=== PATIENT | female | born 1960 | race Caucasian/White ===

== ENCOUNTER 2017-08-23 17:08 | Inpatient (IN) | payer MEDICARE, MEDICAID ==
[~2017-08-23] VITALS: Ht 152.4 cm; Wt 66.2 kg
[~2017-08-23 17:08] MED LIST: ACE325 PO; ACET-2043 PO; ADV100/50 INH; AMOX-559 PO; AMOX500T10 PO; ARTO15 OP; BACI1POW3 MC; CARB15DR76 OU; CEPH500T7 PO; CETY454C2 TP; CHLO1LIQ2 MC; CIP500 PO; COMPLETE SENIOR; DIA5 PO; DIAZ-308 PO; DOXY-252 PO; DUL100/5PT INH; ESOM40CA42 PO; FLUO-202 PO; FLUO40CA76 PO; FLUT1AER INH; GUAI-537 PO; HYDR28.415 TP; LAM100 PO; LEV75 PO; LEVO75TA68 PO; LOPE-147 PO; MENT118G TOP; PAN40 PO; PHEN200T32 PO; POLY15DR42; SODCLOD; SYSTANEPT OP; TALC71PO2 TP; VIT1CAPS39 PO; [UNRECOGNIZED DRUG - OTHER]; [UNRECOGNIZED DRUG - OTHER]; oxygen
--- NOTE | 2017-08-23 17:17 | ER Report ---
History and Physical Time Seen By MD: 17:16 HPI/ROS CHIEF COMPLAINT: Cough HISTORY OF PRESENT ILLNESS: This is a 57-year-old female who resides at the [facility] she has a history of Down's and has off. According to the caregiver she's had a productive cough for about 6-7 days they were concerned that she had influenza as her other clients in her facility that have influenza and therefore they took her to urgent care for evaluation she was negative for influenza. They did do a chest x-ray which showed a pneumonia. Patient has also been complaining of aches and chills. No diarrhea, no nausea, no vomiting or any other complaints at this time. SPO2 at urgent care was about 50%, they did place her on oxygen when they sent her to the emergency department however according to caregiver she did take the oxygen off en route, upon arrival she was in the 60s on room air. While I was in the room the patient was put on a simple mask and did take her about 7 minutes to get from 65% to 90%. At this time she tolerating the simple mask well. REVIEW OF SYSTEMS: Constitutional: No fever, no chills. Eyes: No discharge. ENT: No sore throat. Cardiovascular: No chest pain, no palpitations. Respiratory: As above. Gastrointestinal: No abdominal pain, no vomiting. Genitourinary: No hematuria. Musculoskeletal: No back pain. Skin: No rashes. Neurological: No headache. Allergies: Uncoded Allergies: perfume (Allergy, Unknown, 02/01/14) skin sensitive to perfumed soaps and deodorants SOAP (Adverse Reaction, Unknown, 02/01/14) Home Meds Reported Medications Melatonin (MELATONIN) 5 Mg Tab.rapdis, 5 MG PO QHS 08/23/17 Fluoxetine Hcl (FLUOXETINE HCL) 20 Mg Capsule, 30 MG PO QDAY, CAPSULE 08/23/17 Vit A/Vit C/Vit E/Zinc/Copper (PRESERVISION AREDS SOFTGEL) 1 Each Capsule, 1 EACH PO BID, CAPSULE 08/23/17 Multivitamin (MULTIVITAMINS) 1 Each Capsule, 1 EACH PO QDAY, CAPSULE 08/23/17 Levothyroxine Sodium (LEVOTHYROXINE SODIUM) 50 Mcg Tablet, 50 MCG PO QDAY, TAB 08/23/17 Acetaminophen (TYLENOL) 325 Mg Tablet, 650 MG PO BID, TAB 08/23/17 Eyelid Cleanser Combination #5 (OCUSOFT LID SCRUB) 1 Each Med..pad, 1 EACH TP QDAY 08/23/17 Fluticasone/Vilanterol 100/25 Mcg/Inh (BREO ELLIPTA 100/25 MCG) 1 Each Aer.pow.ba, 1 INH INH QDAY, INH 08/23/17 Polyvinyl Alcohol/Povidone/Pf (REFRESH CLASSIC EYE DROPS) 1 Each Droperette, 1 EACH OP Q4D 08/23/17 Parab/Cet Alc/Stryl Alc/Pg/Sls (CETAPHIL DAILY FACIAL CLEANSER) 473 Ml Cleanser , 473 ML TP QDAY 08/23/17 Petrolatum,White (AQUAPHOR) 99 Gm Oint...g., 99 GM TP QDAY 08/23/17 Chlorhexidine Gluconate (HIBICLENS) 118 Ml Liquid, 118 ML TP QDAY 08/23/17 Talc/Cellulos/Chloroxy/Aldioxa (ZEASORB POWDER) 71 Gm Powder, 71 GM TP BID 08/23/17 Lamotrigine (LAMOTRIGINE) 200 Mg Tab.er.24, 200 MG PO QDAY 08/23/17 Sodium Fluoride (PREVIDENT 5000) 100 Ml Gel..ml., 100 ML DT 08/23/17 Discontinued Reported Medications Talc/Cellulos/Chloroxy/Aldioxa (ZEASORB POWDER) 71 Gm Powder, 71 GM TP 05/28/17 Fluticasone/Vilanterol 100/25 Mcg/Inh (BREO ELLIPTA 100/25 MCG) 1 Each Aer.pow.ba, 1 INH INH QDAY, INH 05/28/17 Cetyl Alc/Stearyl Alc/Pg/Sls (CETAPHIL CREAM) 454 Gm Cream..g., 454 GM TP BID 02/01/14 [oxygen] No Conflict Check 11/02/13 Diazepam (DIAZEPAM) 5 Mg Tablet, 5 MG PO, #15 TAB take t mgg as needed q/2 hr prior to dental or gynecological appointments 10/27/13 Fluoxetine Hcl (PROZAC) 20 Mg Capsule, 20 MG PO QDAY, CAPSULE 10/27/13 [complete senior] No Conflict Check 11/09/11 Polysorbate 80/Glycerin (Refresh Dry Eye Therapy Drops) 15 Ml Drops EVERY 2 HOURS DURING THE DAY 4/9/12 Clindamycin Phos (CLINDAMYCIN 1% TOPICAL SOLN (PATIENT OWN)) 60 Ml Solution 11/09/11 [max vision] No Conflict Check 2 CAPS DAILY 11/09/11 Levothyroxine Sodium (Synthroid/Levothroid) 0.075 Mg Tab, 50 MCG PO QDAY, 0 Refills 08/01/10 Lamotrigine (Lamictal) 100 Mg Tab, 200 MG PO QDAY, 0 Refills take 200 mg daily at 0800 08/01/10 Discontinued Scripts Phenazopyridine Hcl (PHENAZOPYRIDINE HCL) 200 Mg Tablet, 200 MG PO TID Y for urinary burning, #9 TAB Prov:RADHA SNYDER DO 11/07/16 Cephalexin 500 Mg Tab (KEFLEX 500 MG TAB) 500 Mg Tablet, 500 MG PO TID for infection, #20 TAB Prov:RADHA SNYDER DO 11/07/16 Past Medical/Surgical History Patient has a past medical surgical history of hypothyroidism, murmur, convulsions, cataract in the right eye A, cataract surgery, Down syndrome, urinary tract infections. Reviewed Nurses Notes: Yes Hx Smoking: No Smoking Status: Never Smoker Exposure to Second Hand Smoke?: No Hx Substance Use Disorder: No Hx Alcohol Use: No Constitutional Vital Sign - Last 24 Hours 08/23/17 08/23/17 08/23/17 08/23/17 17:10 17:18 17:23 17:38 Pulse 78 70 76 Resp 24 B/P (MAP) 130/78 (95) Pulse Ox 94 82 08/23/17 08/23/17 08/23/17 08/23/17 17:53 18:06 18:08 18:15 Pulse 73 71 B/P (MAP) 112/34 (60) 90/64 (73) Pulse Ox 85 94 08/23/17 08/23/17 08/23/17 08/23/17 18:23 18:30 18:58 19:03 Pulse 72 66 66 Pulse Ox 94 95 95 O2 Flow Rate 15.0 08/23/17 08/23/17 08/23/17 08/23/17 19:33 20:03 20:08 20:38 Pulse 71 93 83 79 Pulse Ox 97 91 95 94 Physical Exam General Appearance: The patient is alert, has no immediate need for airway protection and no signs of toxicity, pale. Eyes: Pupils equal and round no pallor or injection. ENT, Mouth: Mucous membranes are moist. Respiratory: There are no retractions, lungs are dim sounding throughout. No rhonchi or wheezing. Cardiovascular: Regular rate and rhythm, systolic murmur, no clicks or rubs. Gastrointestinal: Abdomen is soft and non tender, no masses, bowel sounds normal. Neurological: Alert and at baseline per caregiver. Following commands. No focal neuro deficits. Skin: Warm and dry, no rashes. Musculoskeletal: Neck is supple non tender. Extremities are nontender, nonswollen and have full range of motion. DIFFERENTIAL DIAGNOSIS: After history and physical exam differential diagnosis was considered for pneumonia, PE, [place]. Medical Decision Making Data Points Result Diagram: 08/23/17180508/23/171805 Laboratory Hematology Test 08/23/17 00:00 08/23/17 18:06 Urine Color Yellow Urine Clarity Clear Urine pH 5.0 pH (4.8-9.5) Urine Specific [place] 1.028 Urine Protein 30 mg/dL (NEGATIVE) Urine Glucose (UA) Negative mg/dL (NEGATIVE) Urine Ketones Negative mg/dL (NEGATIVE) Urine Blood Negative (NEGATIVE) Urine Nitrite Negative (NEGATIVE) Urine Bilirubin Negative (NEGATIVE) Urine Urobilinogen Negative mg/dL (0.2-1.9) Urine Leukocyte Esterase Negative (NEGATIVE) Urine RBC <1 /HPF (0-2/HPF) Urine WBC 4 /HPF (0-5/HPF) Urine Squamous Epithelial Cells Few /LPF (</=FEW) Urine Bacteria Negative /HPF (NONE-FEW) Urine Mucus Few /HPF (NONE-FEW) Red Blood Count 3.94 M/uL (4.17-5.56) Mean Corpuscular Volume 104.9 fL (80.0-96.0) Mean Corpuscular Hemoglobin 35.6 pg (26.0-33.0) Mean Corpuscular Hemoglobin Concent 34.0 g/dL (32.0-36.0) Red Cell Distribution Width 14.1 % (11.5-14.5) Mean Platelet Volume 8.1 fL (7.2-11.1) Neutrophils (%) (Auto) 85.7 % (39.4-72.5) Lymphocytes (%) (Auto) 7.6 % (17.6-49.6) Monocytes (%) (Auto) 6.0 % (4.1-12.4) Eosinophils (%) (Auto) 0.5 % (0.4-6.7) Basophils (%) (Auto) 0.2 % (0.3-1.4) Nucleated RBC Relative Count (auto) 0.0 /100WBC Neutrophils # (Auto) 9.4 K/uL (2.0-7.4) Lymphocytes # (Auto) 0.8 K/uL (1.3-3.6) Monocytes # (Auto) 0.7 K/uL (0.3-1.0) Eosinophils # (Auto) 0.1 K/uL (0.0-0.5) Basophils # (Auto) 0.0 K/uL (0.0-0.1) Nucleated RBC Absolute Count (auto) 0.01 K/uL Peripheral Blood Smear No Y/N D-Dimer Quantitative (PE/DVT) 1.18 ug/ml (0-0.50) Sodium Level 139 mmol/L (137-145) Potassium Level 4.3 mmol/L (3.5-5.0) Chloride Level 97 mmol/L (98-107) Carbon Dioxide Level 30 mmol/L (22-31) Blood Urea Nitrogen 20 mg/dl (7-18) Creatinine 0.90 mg/dl (0.52-1.04) Glomerular Filtration Rate Calc > 60.0 Random Glucose 111 mg/dl (75-110) Lactate 1.3 mmol/L (0.7-2.1) Calcium Level 8.9 mg/dl (8.4-10.2) Total Bilirubin 0.7 mg/dl (0.2-1.3) Aspartate Amino Transf (AST/SGOT) 48 U/L (0-35) Alanine Aminotransferase (ALT/SGPT) 48 U/L (0-56) Alkaline Phosphatase 151 U/L (0-126) Troponin I 0.015 ng/ml Total Protein 8.2 gm/dl (6.3-8.2) Albumin 4.1 g/dl (3.5-5.0) Chemistry Test 08/23/17 00:00 08/23/17 18:06 Urine Color Yellow Urine Clarity Clear Urine pH 5.0 pH (4.8-9.5) Urine Specific [place] 1.028 Urine Protein 30 mg/dL (NEGATIVE) Urine Glucose (UA) Negative mg/dL (NEGATIVE) Urine Ketones Negative mg/dL (NEGATIVE) Urine Blood Negative (NEGATIVE) Urine Nitrite Negative (NEGATIVE) Urine Bilirubin Negative (NEGATIVE) Urine Urobilinogen Negative mg/dL (0.2-1.9) Urine Leukocyte Esterase Negative (NEGATIVE) Urine RBC <1 /HPF (0-2/HPF) Urine WBC 4 /HPF (0-5/HPF) Urine Squamous Epithelial Cells Few /LPF (</=FEW) Urine Bacteria Negative /HPF (NONE-FEW) Urine Mucus Few /HPF (NONE-FEW) White Blood Count 11.0 k/uL (4.5-11.0) Red Blood Count 3.94 M/uL (4.17-5.56) Hemoglobin 14.0 g/dL (12.0-16.0) Hematocrit 41.3 % (34.0-47.0) Mean Corpuscular Volume 104.9 fL (80.0-96.0) Mean Corpuscular Hemoglobin 35.6 pg (26.0-33.0) Mean Corpuscular Hemoglobin Concent 34.0 g/dL (32.0-36.0) Red Cell Distribution Width 14.1 % (11.5-14.5) Platelet Count 185 K/uL (150-450) Mean Platelet Volume 8.1 fL (7.2-11.1) Neutrophils (%) (Auto) 85.7 % (39.4-72.5) Lymphocytes (%) (Auto) 7.6 % (17.6-49.6) Monocytes (%) (Auto) 6.0 % (4.1-12.4) Eosinophils (%) (Auto) 0.5 % (0.4-6.7) Basophils (%) (Auto) 0.2 % (0.3-1.4) Nucleated RBC Relative Count (auto) 0.0 /100WBC Neutrophils # (Auto) 9.4 K/uL (2.0-7.4) Lymphocytes # (Auto) 0.8 K/uL (1.3-3.6) Monocytes # (Auto) 0.7 K/uL (0.3-1.0) Eosinophils # (Auto) 0.1 K/uL (0.0-0.5) Basophils # (Auto) 0.0 K/uL (0.0-0.1) Nucleated RBC Absolute Count (auto) 0.01 K/uL Peripheral Blood Smear No Y/N D-Dimer Quantitative (PE/DVT) 1.18 ug/ml (0-0.50) Glomerular Filtration Rate Calc > 60.0 Lactate 1.3 mmol/L (0.7-2.1) Calcium Level 8.9 mg/dl (8.4-10.2) Total Bilirubin 0.7 mg/dl (0.2-1.3) Aspartate Amino Transf (AST/SGOT) 48 U/L (0-35) Alanine Aminotransferase (ALT/SGPT) 48 U/L (0-56) Alkaline Phosphatase 151 U/L (0-126) Troponin I 0.015 ng/ml Total Protein 8.2 gm/dl (6.3-8.2) Albumin 4.1 g/dl (3.5-5.0) Coagulation Test 08/23/17 18:06 D-Dimer Quantitative (PE/DVT) 1.18 ug/ml Urinalysis Test 08/23/17 00:00 Urine Color Yellow Urine Clarity Clear Urine pH 5.0 pH (4.8-9.5) Urine Specific [place] 1.028 Urine Protein 30 mg/dL (NEGATIVE) Urine Glucose (UA) Negative mg/dL (NEGATIVE) Urine Ketones Negative mg/dL (NEGATIVE) Urine Blood Negative (NEGATIVE) Urine Nitrite Negative (NEGATIVE) Urine Bilirubin Negative (NEGATIVE) Urine Urobilinogen Negative mg/dL (0.2-1.9) Urine Leukocyte Esterase Negative (NEGATIVE) Urine RBC <1 /HPF (0-2/HPF) Urine WBC 4 /HPF (0-5/HPF) Urine Squamous Epithelial Cells Few /LPF (</=FEW) Urine Bacteria Negative /HPF (NONE-FEW) Urine Mucus Few /HPF (NONE-FEW) EKG/Imaging EKG Interpretation 12 lead EKst EKG, 1739. Rhythm: normal sinus rhythm, ventricular rate 76 bpm. [place]: normal QRS: normal ST segments: normal QTC 483 milliseconds. Imaging PATIENT NAME: Keerthi Melendez : 1960 MR: [id number] V: [id number] EXAM DATE: ORDERING PHYSICIAN: GERALD SRINIVASAN TECHNOLOGIST: Location: [facility] Patient: Keerthi Melendez : 1960 Visit/Account:[id number] Date of Sevice: 08/23/2017 CT PE DATE: 08/23/2017 8:18 PM INDICATION: Hypoxia, evaluate for pulmonary embolism. COMPARISON: Same-day radiograph. TECHNIQUE: Axial CT angiogram was obtained through the chest with intravenous contrast. Sagittal and coronal MPR and MIP coronal reformations were also generated. 75 mL isovue 370. One of the following dose optimization techniques was utilized in the performance of this exam: Automated exposure control; adjustment of the mA and/or kV according to the patient's size; or use of an iterative reconstruction technique. Specific details can be referenced in the facility's radiology CT exam operational policy. FINDINGS: Thyroid / Thoracic Inlet: Unremarkable. Pulmonary Arteries: Normal. Heart and Aorta: Heart size is likely normal. No pericardial effusion. Nonaneurysmal thoracic aorta. Ductus infundibulum noted. Mediastinum and Jessica: Enlarged mediastinal and right hilar lymph nodes are likely reactive. Lungs and Pleura: No pleural effusion or pneumothorax. There is patchy consolidation in the midportion of the right lower lobe suspicious for pneumonia. Consolidation at the bilateral lung bases with volume loss consistent with atelectasis, although underlying additional sites of infection are not excluded. Breast and Axilla: No axillary lymphadenopathy. Upper Abdomen: No visualized acute abnormality. Incompletely imaged right renal cyst. Bones and Soft Tissues: No suspicious osseous or soft tissue abnormality. Moderate to severe multilevel spondylosis. IMPRESSION: 1. No pulmonary embolism. 2. Suspected right lower lobe pneumonia with reactive mediastinal and right hilar adenopathy. 3. Bibasilar atelectasis. Dr. Betancourt discussed this case with GERALD SRINIVASAN on 08/23/2017 8:45 PM. Report Dictated By: Jean Betancourt MD at 08/23/2017 8:16 PM Report E-Signed By: Jean Betancourt MD at 08/23/2017 8:46 PM WSN:[id number] ED Course/Re-evaluation Clinical Indication for ER IV: Hydration, IV Access ED Course The patient was admitted to room. A history and physical were obtained. Differential diagnoses were considered. IV was started. A CBC, CMP, troponin and d-dimer were obtained. Blood cultures were obtained. Sputum culture was obtained. No white count at this time, percent neutrophils 85.7. Negative lactate, negative troponin. D-dimer was 1.18. Given the low oxygen saturation of 50s to 80% on room air and a positive d-dimer I did go ahead and CT the patient. CTA was negative for a PE it did confirm a right lower lobe pneumonia and bibasilar atelectasis. The patient has remained on an oxymask with the oxygen saturation at 90% or slightly above. If the oxy mask does come off the patient quickly decompensates down to about 80%. I did review the results with the patient and the caregiver they had no questions were concerns. I did tell them that Dr. Elizalde has accepted him in to the hospitalist services. Patient was admitted to medical surgical unit from the emergency department. 08/23/2017 9:02:09 pm I did speak with Dr. Rochelle Elizalde regarding the patient's case and he is accepted the patient into the hospitalist services. He will start antibiotics once the patient gets to the medical surgical floor. Decision to Disposition Date: Aug 23, 2017 Decision to Disposition Time: 20:58 Depart Departure Latest Vital Signs Vital Signs Date Time Temp Pulse Resp B/P (MAP) Pulse Ox O2 Delivery O2 Flow Rate FiO2 08/23/17 20:38 79 94 08/23/17 18:30 15.0 08/23/17 18:15 90/64 (73) 08/23/17 17:10 24 Impression: Primary Impression: Right lower lobe pneumonia Condition: Improved Disposition: Admitted from ER Referrals: JUDY LOPEZ MD (PCP) Problem Qualifiers Primary Impression: Right lower lobe pneumonia Pneumonia type: due to unspecified organism Qualified Codes: J18.1 - Lobar pneumonia, unspecified organism GERALD SRINIVASAN MED[employer] INSURANCE CLAIMS SPECIALIST-BC Aug 23, 2017 17:17
--- NOTE | 2017-08-23 17:48 | EKG ---
FACILITY: [facility] PATIENT NAME: WALTER CADENA : [id number] MR: [id number] V: [id number] EXAM DATE: ORDERING PHYSICIAN: GERALD SRINIVASAN TECHNOLOGIST: KARON Daniels Reason : RESPIRATORY Blood Pressure : / mmHG Vent. Rate : 076 BPM Atrial Rate : 076 BPM P-R Int : 144 ms QRS Dur : 078 ms QT Int : 430 ms P-R-T Axes : 053 060 051 degrees QTc Int : 483 ms Sinus rhythm Prolonged QT Abnormal ECG No previous ECGs available Confirmed by GLADYS WEBB ([id number]) on 08/23/2017 7:55:22 PM Referred By: Confirmed By:GLADYS WEBB
[2017-08-23] MEDS ORDERED: FLUO-177 PO (18:17)
[2017-08-23] MEDS ORDERED: LEVO50TA86 PO (18:17)
[2017-08-23] MEDS ORDERED: SODI100G4 DT (18:17)
[2017-08-23] MEDS ORDERED: EYEL1MED TP (18:17)
[2017-08-23] MEDS ORDERED: FLUT1AER INH (18:17)
[2017-08-23] MEDS ORDERED: LAMO200T3 PO (18:17)
[2017-08-23] MEDS ORDERED: CHLO118L6 TP (18:17)
[2017-08-23] MEDS ORDERED: MULT1CAP59 PO (18:17)
[2017-08-23] MEDS ORDERED: ACET-1966 PO (18:17)
[2017-08-23] MEDS ORDERED: [UNRECOGNIZED DRUG - CODE] TP (18:17)
[2017-08-23] MEDS ORDERED: MELA5TAB20 PO (18:17)
[2017-08-23] MEDS ORDERED: VIT1CAPS34 PO (18:17)
[2017-08-23] MEDS ORDERED: POLY1DRO10 OP (18:17)
[2017-08-23] MEDS ORDERED: PETR99OI2 TP (18:17)
[2017-08-23] MEDS ORDERED: TALC71PO2 TP (18:17)
[2017-08-23 18:23] LABS: PLATELET COUNT, AUTOMATED 185 K/uL (150-450)
[2017-08-23] MEDS ORDERED: IOPAMIDOL 76% 75 ML INFUS BTL 75 ML ONE (19:04)
[2017-08-23] MEDS ORDERED: NS 0.9% 20 ML SDV 100 ML ONE (19:04)
[2017-08-23] MEDS ORDERED: KETAMINE HCL 200 MG/20 ML MDV IVP ONE (19:20)
[2017-08-23] MEDS ORDERED: KETAMINE HCL 500 MG/5 ML VIAL IVP ONE (19:25)
--- NOTE | 2017-08-23 20:51 | RADIOLOGY IMAGING REPORT ---
FACILITY: PATIENT NAME: Keerthi Melendez : 1960 MR: [id number] V: [id number] EXAM DATE: ORDERING PHYSICIAN: GERALD SRINIVASAN TECHNOLOGIST: Location: [facility] [place] Patient: Keerthi Melendez : 1960 Visit/Account:[id number] Date of Sevice: 08/23/2017 CT PE DATE: 08/23/2017 8:18 PM INDICATION: Hypoxia, evaluate for pulmonary embolism. COMPARISON: Same-day radiograph. TECHNIQUE: Axial CT angiogram was obtained through the chest with intravenous contrast. Sagittal an d coronal MPR and MIP coronal reformations were also generated. 75 mL isovue 370. One of the follow ing dose optimization techniques was utilized in the performance of this exam: Automated exposure con trol; adjustment of the mA and/or kV according to the patient's size; or use of an iterative reconst ruction technique. Specific details can be referenced in the facility's radiology CT exam operationa l policy. FINDINGS: Thyroid / Thoracic Inlet: Unremarkable. Pulmonary Arteries: Normal. Heart and Aorta: Heart size is likely normal. No pericardial effusion. Nonaneurysmal thoracic aorta . Ductus infundibulum noted. Mediastinum and Jessica: Enlarged mediastinal and right hilar lymph nodes are likely reactive. Lungs and Pleura: No pleural effusion or pneumothorax. There is patchy consolidation in the midport ion of the right lower lobe suspicious for pneumonia. Consolidation at the bilateral lung bases with volume loss consistent with atelectasis, although underlying additional sites of infection are not e xcluded. Breast and Axilla: No axillary lymphadenopathy. Upper Abdomen: No visualized acute abnormality. Incompletely imaged right renal cyst. Bones and Soft Tissues: No suspicious osseous or soft tissue abnormality. Moderate to severe multil evel spondylosis. IMPRESSION: 1. No pulmonary embolism. 2. Suspected right lower lobe pneumonia with reactive mediastinal and right hilar adenopathy. 3. Bibasilar atelectasis. Dr. Betancourt discussed this case with GERALD SRINIVASAN on 08/23/2017 8:45 PM. Report Dictated By: Jean Betancourt MD at 08/23/2017 8:16 PM Report E-Signed By: Jean Betancourt MD at 08/23/2017 8:46 PM WSN:[id number]
[2017-08-23 21:31] VITALS: BP 113/76
--- NOTE | 2017-08-23 22:04 | History & Physical ---
History of Present Illness Chief Complaint Cough History of Present Illness 57yo female with PMHx significant for Down's Syndrome, seizures, DVT, hypothyroidism. Her caregivers report she has had productive cough for upwards of one week. She has been less active. She has also not been eating as she usually does. They have not appreciated any fever. She did appear to be short of breath. She was evaluated [facility] and found to be hypoxic and have RLL infiltrate on CXR. She also had CT pulmonary angiogram, which showed the RLL infiltrate and was negative for pulmonary embolus. She was recommended for admission. History Problems: (1) Down's syndrome Status: Chronic (2) Hypothyroidism Status: Chronic (3) Seizure disorder Status: Chronic (4) History of DVT (deep vein thrombosis) Status: Resolved Home Meds Reported Medications Melatonin (MELATONIN) 5 Mg Tab.rapdis, 5 MG PO QHS 08/23/17 Fluoxetine Hcl (FLUOXETINE HCL) 20 Mg Capsule, 30 MG PO QDAY, CAPSULE 08/23/17 Vit A/Vit C/Vit E/Zinc/Copper (PRESERVISION AREDS SOFTGEL) 1 Each Capsule, 1 EACH PO BID, CAPSULE 08/23/17 Multivitamin (MULTIVITAMINS) 1 Each Capsule, 1 EACH PO QDAY, CAPSULE 08/23/17 Levothyroxine Sodium (LEVOTHYROXINE SODIUM) 50 Mcg Tablet, 50 MCG PO QDAY, TAB 08/23/17 Acetaminophen (TYLENOL) 325 Mg Tablet, 650 MG PO BID, TAB 08/23/17 Eyelid Cleanser Combination #5 (OCUSOFT LID SCRUB) 1 Each Med..pad, 1 EACH TP QDAY 08/23/17 Fluticasone/Vilanterol 100/25 Mcg/Inh (BREO ELLIPTA 100/25 MCG) 1 Each Aer.pow.ba, 1 INH INH QDAY, INH 08/23/17 Polyvinyl Alcohol/Povidone/Pf (REFRESH CLASSIC EYE DROPS) 1 Each Droperette, 1 EACH OP Q4D 08/23/17 Parab/Cet Alc/Stryl Alc/Pg/Sls (CETAPHIL DAILY FACIAL CLEANSER) 473 Ml Cleanser , 473 ML TP QDAY 08/23/17 Petrolatum,White (AQUAPHOR) 99 Gm Oint...g., 99 GM TP QDAY 08/23/17 Chlorhexidine Gluconate (HIBICLENS) 118 Ml Liquid, 118 ML TP QDAY 08/23/17 Talc/Cellulos/Chloroxy/Aldioxa (ZEASORB POWDER) 71 Gm Powder, 71 GM TP BID 08/23/17 Lamotrigine (LAMOTRIGINE) 200 Mg Tab.er.24, 200 MG PO QDAY 08/23/17 Sodium Fluoride (PREVIDENT 5000) 100 Ml Gel..ml., 100 ML DT 08/23/17 Discontinued Reported Medications Talc/Cellulos/Chloroxy/Aldioxa (ZEASORB POWDER) 71 Gm Powder, 71 GM TP 05/28/17 Fluticasone/Vilanterol 100/25 Mcg/Inh (BREO ELLIPTA 100/25 MCG) 1 Each Aer.pow.ba, 1 INH INH QDAY, INH 05/28/17 Cetyl Alc/Stearyl Alc/Pg/Sls (CETAPHIL CREAM) 454 Gm Cream..g., 454 GM TP BID 02/01/14 [oxygen] No Conflict Check 11/02/13 Diazepam (DIAZEPAM) 5 Mg Tablet, 5 MG PO, #15 TAB take t mgg as needed q/2 hr prior to dental or gynecological appointments 10/27/13 Fluoxetine Hcl (PROZAC) 20 Mg Capsule, 20 MG PO QDAY, CAPSULE 10/27/13 [complete senior] No Conflict Check 11/09/11 Polysorbate 80/Glycerin (Refresh Dry Eye Therapy Drops) 15 Ml Drops EVERY 2 HOURS DURING THE DAY 11/09/11 Clindamycin Phos (CLINDAMYCIN 1% TOPICAL SOLN (PATIENT OWN)) 60 Ml Solution 11/09/11 [max vision] No Conflict Check 2 CAPS DAILY 11/09/11 Levothyroxine Sodium (Synthroid/Levothroid) 0.075 Mg Tab, 50 MCG PO QDAY, 0 Refills 08/01/10 Lamotrigine (Lamictal) 100 Mg Tab, 200 MG PO QDAY, 0 Refills take 200 mg daily at 0800 08/01/10 Discontinued Scripts Phenazopyridine Hcl (PHENAZOPYRIDINE HCL) 200 Mg Tablet, 200 MG PO TID Y for urinary burning, #9 TAB Prov:RADHA SNYDER DO 11/07/16 Cephalexin 500 Mg Tab (KEFLEX 500 MG TAB) 500 Mg Tablet, 500 MG PO TID for infection, #20 TAB Prov:RADHA SNYDER DO 11/07/16 Allergies: Uncoded Allergies: perfume (Allergy, Unknown, 02/01/14) skin sensitive to perfumed soaps and deodorants SOAP (Adverse Reaction, Unknown, 02/01/14) Other Social/Family Hx She currently resides at an [facility] home. Hx Smoking: No Smoking Status: Never Smoker Exposure to Second Hand Smoke?: No Caffeine Intake: Soda Caffeine/Cups Per Day: 3 Hx Alcohol Use: No Hx Substance Use Disorder: No Social Drug Use: Never Review of Systems Constitutional: No Fever, No Chills Cardiovascular: Chest Pain Respiratory: Shortness of Breath, Cough, Wheezing Gastrointestinal: No Nausea, No Vomiting, No Diarrhea, Other (Poor appetite) Exam Vital Signs Vital Signs Date Time Temp Pulse Resp B/P (MAP) Pulse Ox O2 Delivery O2 Flow Rate FiO2 08/23/17 21:31 98.4 85 18 113/76 (88) 77 Room Air 08/23/17 18:30 15.0 General Appearance: Alert, Awake Eyes: Other (Mongoloid facies) ENT: Other (mucosa dry) Neck: No Masses Cardiovascular: Regular Rate and Rhythm (with soft systolic murmur) Respiratory: Other (Scattered rhonchi with few rales at right base/soft expiratory wheezes) Chest: No Tenderness GI: Abd Soft and Non-Tender Extremities: Warm, Perfused Medical Decision Making Data Points Result Diagram: 08/23/17 1806 08/23/17 180 Item Value Date Time Albumin 4.1 g/dl 08/23/17 1806 Total Protein 8.2 gm/dl 08/23/17 1806 Troponin I 0.015 ng/ml 08/23/17 1806 Alkaline Phosphatase 151 U/L H 08/23/17 1806 Alanine Aminotransferase (ALT/SGPT) 48 U/L 08/23/17 1806 Aspartate Amino Transf (AST/SGOT) 48 U/L H 08/23/17 1806 Total Bilirubin 0.7 mg/dl 08/23/17 1806 Calcium Level 8.9 mg/dl 08/23/17 1806 Lactate 1.3 mmol/L 08/23/17 1806 D-Dimer Quantitative (PE/DVT) 1.18 ug/ml H 08/23/17 1806 Urine Mucus Few /HPF 08/23/17 0000 Urine Bacteria Negative /HPF 08/23/17 Urine Squamous Epithelial Cells Few /LPF 08/23/17 0000 Urine WBC 4 /HPF 08/23/17 0000 Urine RBC <1 /HPF 08/23/17 0000 Urine Leukocyte Esterase Negative 08/23/17 Urine Urobilinogen Negative mg/dL 08/23/17 Urine Bilirubin Negative 08/23/17 Urine Nitrite Negative 08/23/17 Urine Blood Negative 08/23/17 Urine Ketones Negative mg/dL 08/23/17 Urine Glucose (UA) Negative mg/dL 08/23/17 Urine Protein 30 mg/dL 08/23/17 Urine Specific [place] 1.028 08/23/17 Urine pH 5.0 pH 08/23/17 Urine Clarity Clear 08/23/17 Urine Color Yellow 08/23/17 EKG / Imaging EKG Interpretation PATIENT NAME: WALTER CADENA : [id number] MR: [id number] V: [id number] EXAM DATE: ORDERING PHYSICIAN: GERALD LOYDDGEROTH TECHNOLOGIST: KARON Daniels Reason : RESPIRATORY Blood Pressure : / mmHG Vent. Rate : 076 BPM Atrial Rate : 076 BPM P-R Int : 144 ms QRS Dur : 078 ms QT Int : 430 ms P-R-T Axes : 053 060 051 degrees QTc Int : 483 ms Sinus rhythm Prolonged QT Abnormal ECG No previous ECGs available Confirmed by GLADYS WEBB ([id number] on 08/23/2017 7:55:22 PM Referred By: Confirmed By:GLADYS WEBB Imaging PATIENT NAME: Walter Cadena : 1960 MR: [id number] V: [id number] EXAM DATE: [id number] ORDERING PHYSICIAN: GERALD SRINIVASAN TECHNOLOGIST: Location: [facility] Patient: Walter Cadena : 1960 Visit/Account:[id number] Date of Sevice: 08/23/2017 CT PE DATE: 08/23/2017 8:18 PM INDICATION: Hypoxia, evaluate for pulmonary embolism. COMPARISON: Same-day radiograph. TECHNIQUE: Axial CT angiogram was obtained through the chest with intravenous contrast. Sagittal and coronal MPR and MIP coronal reformations were also generated. 75 mL isovue 370. One of the following dose optimization techniques was utilized in the performance of this exam: Automated exposure control; adjustment of the mA and/or kV according to the patient's size; or use of an iterative reconstruction technique. Specific details can be referenced in the facility's radiology CT exam operational policy. FINDINGS: Thyroid / Thoracic Inlet: Unremarkable. Pulmonary Arteries: Normal. Heart and Aorta: Heart size is likely normal. No pericardial effusion. Nonaneurysmal thoracic aorta. Ductus infundibulum noted. Mediastinum and Jessica: Enlarged mediastinal and right hilar lymph nodes are likely reactive. Lungs and Pleura: No pleural effusion or pneumothorax. There is patchy consolidation in the midportion of the right lower lobe suspicious for pneumonia. Consolidation at the bilateral lung bases with volume loss consistent with atelectasis, although underlying additional sites of infection are not excluded. Breast and Axilla: No axillary lymphadenopathy. Upper Abdomen: No visualized acute abnormality. Incompletely imaged right renal cyst. Bones and Soft Tissues: No suspicious osseous or soft tissue abnormality. Moderate to severe multilevel spondylosis. IMPRESSION: 1. No pulmonary embolism. 2. Suspected right lower lobe pneumonia with reactive mediastinal and right hilar adenopathy. 3. Bibasilar atelectasis. Dr. Betancourt discussed this case with GERALD SRINIVASAN on 08/23/2017 8:45 PM. Report Dictated By: Jean Betancourt MD at 08/23/2017 8:16 PM Report E-Signed By: Jean Betancourt MD at 08/23/2017 8:46 PM [id number] Assessment and Plan Problems: (1) Right lower lobe pneumonia Status: Acute Assessment & Plan: Community acquired. Will place on IV Rocephin and doxycycline. Cultures of blood and sputum have been obtained in the ER. Will give supplemental oxygen and respiratory treatments as needed. (2) Hypothyroidism Status: Chronic Assessment & Plan: Continue replacement therapy with L-thyroxine. (3) Seizure disorder Status: Chronic Assessment & Plan: Continue Lamictal. (4) History of DVT (deep vein thrombosis) Status: Resolved Assessment & Plan: She will be on Lovenox for DVT prophylaxis. (5) Down's syndrome Status: Chronic (6) Prolonged Q-T interval on ECG Assessment & Plan: Will follow EKG. Avoid any antibiotics/meds that may contribute. Venous Thromboembolism Antithrombotics Is Pt On Any Antithrombotics?: Yes Exam Sepsis Risk: No Definite Risk Problem Qualifiers (1) Right lower lobe pneumonia: Pneumonia type: due to unspecified organism Qualified Codes: J18.1 - Lobar pneumonia, unspecified organism GLADYS WEBB MD Aug 23, 2017 22:04
[2017-08-23] MEDS ORDERED: cefTRIAXone 1 GM VIAL ONE (22:10)
[2017-08-23] MEDS ORDERED: NS(*) 0.9% 100 ML BAG 100 ML ONE (22:10)
[2017-08-23] MEDS: NS(*) 0.9% 1000 ML BAG 1,000 ML IV PRN (22:28)
[2017-08-23] MEDS ORDERED: cefTRIAXone(*) 1 GM VIAL 1 GM in NS(*) 0.9% 100 ML ADDVANT BAG 100 ML IVPB SCH (22:45)
[2017-08-23] MEDS: DOXYCYCLINE HYCL 100 MG VIAL 100 MG in NS(*) 0.9% 250 ML BAG 250 ML IV SCH (23:23)
[2017-08-24] MEDS ORDERED: GLY/85CR2 TP (00:28)
[2017-08-24] MEDS ORDERED: SODI51CR DT (00:38)
[2017-08-24] MEDS ORDERED: LAMO200T45 PO (00:40)
[2017-08-24] MEDS ORDERED: [UNRECOGNIZED DRUG - CODE] TP (00:43)
[2017-08-24 03:55] VITALS: BP 102/73
[2017-08-24] MEDS: LEVALBUTEROL 1.25 MG/3 ML NEB NEB SCH ×4 (04:29→16:54)
[2017-08-24] MEDS: LEVOTHYROXINE SOD 0.05 MG TAB PO SCH (05:58)
[2017-08-24 06:03] LABS: PLATELET COUNT, AUTOMATED 161 K/uL (150-450)
--- NOTE | 2017-08-24 07:44 | EKG ---
FACILITY: [facility] PATIENT NAME: WALTER CADENA : [id number] MR: [id number] V: [id number] EXAM DATE: ORDERING PHYSICIAN: GLADYS WEBB TECHNOLOGIST: DIANA Test Reason : PROLONGED QT Blood Pressure : / mmHG Vent. Rate : 085 BPM Atrial Rate : 085 BPM P-R Int : 132 ms QRS Dur : 080 ms QT Int : 386 ms P-R-T Axes : 054 055 047 degrees QTc Int : 459 ms Normal sinus rhythm Normal ECG When compared with ECG of 23-AUG-2017 17:40, Previous ECG has undetermined rhythm, needs review Confirmed by CORDELL WOODS ([id number]) on 08/24/2017 2:21:55 PM Referred By: TRACEY Confirmed By:CORDELL WOODS
[2017-08-24 07:47] VITALS: BP 103/68
[2017-08-24 08:18] VITALS: BMI 28.3
[2017-08-24] MEDS ORDERED: FLUoxetine HCL 20 MG CAP PO SCH (09:00)
[2017-08-24] MEDS: lamoTRIgine 100 MG TAB PO SCH ×2 (09:00→09:49)
[2017-08-24] MEDS: ENOXAPARIN 40 MG/0.4ML SYR SC SCH (09:46)
[2017-08-24] MEDS: FLUoxetine HCL 10 MG CAP PO SCH (09:46)
[2017-08-24] MEDS: MULTIVITAMINS TAB PO SCH (09:46)
[2017-08-24] MEDS: DOXYCYCLINE HYCL 100 MG VIAL 100 MG in NS(*) 0.9% 250 ML BAG 250 ML IV SCH ×2 (09:46→20:30)
[2017-08-24 11:22] VITALS: BP 101/51
--- NOTE | 2017-08-24 12:06 | Hospitalist Progress Note ---
Subjective Progress Notes Subjective Per the nursing staff, the patient is quite congested. Physical Exam Vital Signs Date Time Temp Pulse Resp B/P (MAP) Pulse Ox O2 Delivery O2 Flow Rate FiO2 08/24/17 11:22 98.0 88 24 101/51 (68) 85 Oxy Mask 15.0 General Appearance: Alert, Awake, Other (Appears ill. Agitated a bit.) Neuro: Other (Down's syndrome, developmental delay.) Eyes: PERRLA Cardiovascular: Regular Rate and Rhythm, No Edema, Other Respiratory: Other (Diffuse rhonchi.) GI: Soft and Non-Tender Extremities: Warm, Perfused Psych: Other (Agitated. ) Result Diagram: 08/24/17 0553 08/24/1753 Assessment and Plan Problems: (1) Right lower lobe pneumonia Status: Acute Assessment & Plan: Community acquired. She has been placed on IV Rocephin and doxycycline. Cultures of blood and sputum were obtained in the ER and are negative to date. Will continue supplemental oxygen and respiratory treatments as needed. (2) Hypothyroidism Status: Chronic Assessment & Plan: Continue replacement therapy with L-thyroxine. (3) Seizure disorder Status: Chronic Assessment & Plan: Continue Lamictal. (4) History of DVT (deep vein thrombosis) Status: Resolved Assessment & Plan: She will be on Lovenox for DVT prophylaxis. (5) Down's syndrome Status: Chronic (6) Prolonged Q-T interval on ECG Assessment & Plan: Will follow EKG. Avoid any antibiotics/meds that may contribute. Time Spent on Plan of Care: < 30 min Exam Sepsis Risk: No Definite Risk Problem Qualifiers (1) Right lower lobe pneumonia: Pneumonia type: due to unspecified organism Qualified Codes: J18.1 - Lobar pneumonia, unspecified organism OCRDELL WEBB MD Aug 24, 2017 12:06
[2017-08-24] MEDS: ACETAMINOPHEN 325 MG TAB PO PRN (13:47)
[2017-08-24 15:12] VITALS: BP 94/62
[2017-08-24 15:32] VITALS: BP 96/64
[2017-08-24] MEDS: NS(*) 0.9% 1000 ML BAG 1,000 ML IV PRN (16:42)
[2017-08-24 18:48] VITALS: BP 91/55
[2017-08-24] MEDS: MELATONIN 3 MG TAB PO SCH (20:30)
[2017-08-24] MEDS: cefTRIAXone 1 GM VIAL IVP SCH (22:22)
[2017-08-25] MEDS: ACETAMINOPHEN 325 MG TAB PO PRN ×3 (00:30→18:45)
[2017-08-25] MEDS: LEVOTHYROXINE SOD 0.05 MG TAB PO SCH (05:14)
[2017-08-25 05:25] VITALS: BP 96/63
[2017-08-25 05:41] LABS: PLATELET COUNT, AUTOMATED 156 K/uL (150-450)
[2017-08-25] MEDS: LEVALBUTEROL 1.25 MG/3 ML NEB NEB SCH ×4 (05:46→18:32)
[2017-08-25] MEDS: ENOXAPARIN 40 MG/0.4ML SYR SC SCH (09:00)
[2017-08-25 09:05] VITALS: BP 102/53
[2017-08-25] MEDS: MULTIVITAMINS TAB PO SCH (09:54)
[2017-08-25] MEDS: DOXYCYCLINE HYCL 100 MG VIAL 100 MG in NS(*) 0.9% 250 ML BAG 250 ML IV SCH ×2 (09:54→20:46)
[2017-08-25] MEDS: FLUoxetine HCL 10 MG CAP PO SCH (09:55)
--- NOTE | 2017-08-25 10:52 | Hospitalist Progress Note ---
Subjective Progress Notes Subjective This patient was admitted for pneumonia. She had no acute events overnight. Patient Complains of: Cardiovascular: No: Chest Pain Respiratory: No: Shortness of Breath Physical Exam Vital Signs Date Time Temp Pulse Resp B/P (MAP) Pulse Ox O2 Delivery O2 Flow Rate FiO2 08/25/17 10:10 80 16 08/25/17 05:40 90 High-Flow Nasal Cannula 9.0 08/25/17 05:25 97.9 96/63 (74) Cardiovascular: Regular Rate and Rhythm Respiratory: Clear to Auscultation Extremities: No Edema Integumentary: No Cyanosis Result Diagram: 08/25/1752308/25/17523 Item Value Date Time Sputum Culture - Preliminary Resulted 08/23/172011 Sputum NORMAL THOMAS SO FAR, CULTURE REINCUBATED Blood Culture - Preliminary Resulted 08/23/17 1826 Blood NO GROWTH AFTER 2 DAYS, REINCUBATED Blood Culture - Preliminary Resulted 08/23/17 1806 Blood NO GROWTH AFTER 2 DAYS, REINCUBATED Assessment and Plan Problems: (1) Right lower lobe pneumonia Status: Acute Assessment & Plan: She did present with increased cough. Her WBC was normal, but a CT scan did show an infiltrate. She has been on empiric treatment with ceftriaxone and doxycycline. Her cultures have been negative. (2) Hypothyroidism Status: Chronic Assessment & Plan: She is on chronic treatment with Synthroid. (3) Seizure disorder Status: Chronic Assessment & Plan: She is on chronic treatment with Lamictal. (4) History of DVT (deep vein thrombosis) Status: Resolved Assessment & Plan: She is not on chronic treatment, but we are treating her with prophylactic Lovenox. (5) Down's syndrome Status: Chronic (6) Prolonged Q-T interval on ECG Assessment & Plan: She did have a prolonged QT on her first EKG, but this has improved on repeat testing. Exam Sepsis Risk: No Definite Risk Problem Qualifiers (1) Right lower lobe pneumonia: Pneumonia type: due to unspecified organism Qualified Codes: J18.1 - Lobar pneumonia, unspecified organism ROBERT AVILA DO Aug 25, 2017 10:52
[2017-08-25 11:10] VITALS: BP 110/67
[2017-08-25] MEDS ORDERED: MAGNESIUM HYDROXIDE* 30ML UDCP PO PRN (16:30)
[2017-08-25] MEDS ORDERED: BISACODYL 10 MG SUPP PR PRN (16:30)
[2017-08-25] MEDS: POLYETHYLENE GLYCOL 17 GM PKT PO SCH (17:05)
[2017-08-25 19:49] VITALS: BP 138/51
[2017-08-25] MEDS: MELATONIN 3 MG TAB PO SCH (20:46)
[2017-08-25] MEDS: DOCUSATE SODIUM 100 MG CAP PO SCH (20:46)
[2017-08-25] MEDS: cefTRIAXone 1 GM VIAL IVP SCH (22:16)
[2017-08-26 02:29] VITALS: BP 120/54
[2017-08-26] MEDS: LEVALBUTEROL 1.25 MG/3 ML NEB NEB SCH ×4 (05:27→17:22)
[2017-08-26] MEDS: LEVOTHYROXINE SOD 0.05 MG TAB PO SCH (05:39)
[2017-08-26 05:41] LABS: PLATELET COUNT, AUTOMATED 193 K/uL (150-450)
[2017-08-26 07:12] VITALS: BP 115/67
[2017-08-26] MEDS: NS(*) 0.9% 1000 ML BAG 1,000 ML IV PRN (07:23)
[2017-08-26] MEDS ORDERED: NS(*) 0.9% 1000 ML BAG 1,000 ML IV PRN (08:16)
[2017-08-26] MEDS: FLUoxetine HCL 10 MG CAP PO SCH (08:46)
[2017-08-26] MEDS: DOCUSATE SODIUM 100 MG CAP PO SCH ×2 (08:46→21:00)
[2017-08-26] MEDS: lamoTRIgine 100 MG TAB PO SCH (08:46)
[2017-08-26] MEDS: MULTIVITAMINS TAB PO SCH (08:46)
[2017-08-26] MEDS: DOXYCYCLINE HYCL 100 MG VIAL 100 MG in NS(*) 0.9% 250 ML BAG 250 ML IV SCH ×2 (08:47→20:34)
[2017-08-26] MEDS: POLYETHYLENE GLYCOL 17 GM PKT PO SCH (08:47)
[2017-08-26] MEDS: ENOXAPARIN 40 MG/0.4ML SYR SC SCH (08:47)
[2017-08-26] MEDS: ACETAMINOPHEN 325 MG TAB PO PRN (09:16)
--- NOTE | 2017-08-26 09:20 | Antimicrobial Stewardship ---
Antimicrobial Stewardship Service: Hospitalist Indications: CAP Antimicrobial Used Currently receiving: Ceftriaxone and Doxycycline Start Date: Aug 23, 2017 Height (Calculated Centimeters: [phone] Weight (Calculated Kilograms): 66.224 Creatinine Cl Scr = 0.7 Culture Results: Yes (08/23/17: Blood Cx x 2 and Sputum Cx --- NGTD) Recommendations re: Culture Continue Ceftriaxone 1 g IV Q24H and Doxycycline 100mg IV Q12H on day 4 Comments Pt with RLL pneumonia via CT, on 15 L oxygen, WBCs - wnl, Lactate - wnl, temperature wnl. Continue present management Antibiotics: 08/23/17 - Started Ceftriaxone 1g IV q24h, Doxycycline 100mg IV Q12H, currently day 4. Julia Alvarez, PharmD, BCOP JULIA ALVAREZ Aug 26, 2017 09:20
--- NOTE | 2017-08-26 14:32 | Hospitalist Progress Note ---
Subjective Progress Notes Subjective The patient doesn't answer questions. She continually takes her O2 off and desaturates to the 70's Physical Exam Vital Signs Date Time Temp Pulse Resp B/P (MAP) Pulse Ox O2 Delivery O2 Flow Rate FiO2 08/26/17 10:35 93 Blow-by 15.0 08/26/17 07:12 98.2 83 20 115/67 (83) Intake and Output 08/27/17 07:00 Intake Total 250 ml Balance 250 ml Intake Oral 0 ml IV Total 250 ml # Voids 2 # Bowel Movements 1 General Appearance: Alert, Awake, No Acute Distress Respiratory: Clear to Auscultation Result Diagram: 08/26/17 0508/26/17 0516 Assessment and Plan Problems: (1) Right lower lobe pneumonia Status: Acute Assessment & Plan: She presented with a week of cough and was found to be hypoxic. Her WBC was normal, but a CT scan did show an infiltrate. She has been on empiric treatment with ceftriaxone and doxycycline. Her cultures have been negative. She is hypoxic, but requiring less O2 over night. She continues to be afebrile. (2) Hypothyroidism Status: Chronic Assessment & Plan: She is on chronic treatment with Synthroid. (3) Seizure disorder Status: Chronic Assessment & Plan: She is on chronic treatment with Lamictal. (4) History of DVT (deep vein thrombosis) Status: Resolved Assessment & Plan: She is not on chronic treatment, but we are treating her with prophylactic Lovenox. (5) Prolonged Q-T interval on ECG Assessment & Plan: She did have a prolonged QT on her first EKG, but this has improved on repeat testing. (6) Down's syndrome Status: Chronic Exam Sepsis Risk: No Definite Risk Problem Qualifiers (1) Right lower lobe pneumonia: Pneumonia type: due to unspecified organism Qualified Codes: J18.1 - Lobar pneumonia, unspecified organism MIRANDA NEWMAN MD Aug 26, 2017 14:32
[2017-08-26] MEDS ORDERED: LORazepam 2 MG/ML VIAL ONE (17:37)
[2017-08-26] MEDS: MELATONIN 3 MG TAB PO SCH (21:00)
[2017-08-26] MEDS: cefTRIAXone 1 GM VIAL IVP SCH (22:32)
[2017-08-26] MEDS: LEVALBUTEROL 1.25 MG/3 ML NEB NEB PRN (23:23)
[2017-08-27] MEDS: LEVALBUTEROL 1.25 MG/3 ML NEB NEB PRN (02:13)
[2017-08-27] MEDS: LEVALBUTEROL 1.25 MG/3 ML NEB NEB SCH ×3 (04:44→14:00)
[2017-08-27] MEDS: LEVOTHYROXINE SOD 0.05 MG TAB PO SCH (05:55)
[2017-08-27] MEDS: DOCUSATE SODIUM 100 MG CAP PO SCH ×2 (09:00→21:00)
[2017-08-27] MEDS: lamoTRIgine 100 MG TAB PO SCH (09:00)
[2017-08-27] MEDS: FLUoxetine HCL 10 MG CAP PO SCH (09:00)
[2017-08-27] MEDS: MULTIVITAMINS TAB PO SCH (09:00)
[2017-08-27] MEDS: POLYETHYLENE GLYCOL 17 GM PKT PO SCH (09:00)
[2017-08-27] MEDS: DOXYCYCLINE HYCL 100 MG VIAL 100 MG in NS(*) 0.9% 250 ML BAG 250 ML IV SCH (09:29)
[2017-08-27] MEDS: ENOXAPARIN 40 MG/0.4ML SYR SC SCH (09:31)
[2017-08-27 10:40] VITALS: BMI 28.3
--- NOTE | 2017-08-27 14:42 | Hospitalist Progress Note ---
Subjective Progress Notes Subjective 08/27: is a 57yo female with PMHx significant for Down's Syndrome, seizures, DVT, hypothyroidism. Her caregivers report she has had productive cough for upwards of one week. She has been less active. She has also not been eating as she usually does. They have not appreciated any fever. She did appear to be short of breath. She was evaluated in the Urgent Care and [facility] ER and found to be hypoxic and have RLL infiltrate on CXR. She also had CT pulmonary angiogram, which showed the RLL infiltrate and was negative for pulmonary embolus. She was recommended for admission. She is currently on Rocephin and Doxycycline. Her sputum CX is positive for Strept and sensitive to Rocephin. Patient Complains of: Neurological: Weakness, No: Syncope, Confusion Cardiovascular: No: Chest Pain, Palpitations Respiratory: Cough, Shortness of Breath, Wheezing, No: Congestion Gastrointestinal: Other, No Nausea, No Vomiting, No Bowel Movement Genitourinary: No Dysuria, No Hematuria Musculoskeletal: Impaired Mobility, No: Pain, Sprain, Strain Physical Exam Vital Signs Date Time Temp Pulse Resp B/P (MAP) Pulse Ox O2 Delivery O2 Flow Rate FiO2 08/27/17 11:16 84 24 95 Oxy Mask 5.0 08/27/17 07:29 99.1 08/26/17 07:12 115/67 (83) Intake and Output 08/28/17 07:00 Intake Total 1107 ml Balance 1107 ml Intake Oral 0 ml IV Total 1107 ml # Voids 1 General Appearance: Awake, No Acute Distress, Afebrile Neuro: No Gross deficits Eyes: PERRLA ENT: Normal Cardiovascular: Normal Rhythm & Peripheral Pulses Respiratory: Other (few wheezes noted) GI: Soft and Non-Tender : Normal Extremities: Soft and Non Tender Integumentary: Skin Intact without Lesion / Mass Result Diagram: 08/26/1751508/26/17515 Assessment and Plan Problems: (1) Right lower lobe pneumonia Status: Acute Assessment & Plan: She presented with a week of cough and was found to be hypoxic. Her WBC was normal, but a CT scan did show an infiltrate. She has been on empiric treatment with ceftriaxone and doxycycline. Her cultures have been negative. She is hypoxic, but requiring less O2 over night. She continues to be afebrile. 08/27: I will stop her Doxycycline and continue her Rocephin. I will recheck her CBC in am. I will reevaluate her in am and change her antibiotic to oral one. (2) Hypothyroidism Status: Chronic Assessment & Plan: She is on chronic treatment with Synthroid. (3) Seizure disorder Status: Chronic Assessment & Plan: She is on chronic treatment with Lamictal. (4) History of DVT (deep vein thrombosis) Status: Resolved Assessment & Plan: She is not on chronic treatment, but we are treating her with prophylactic Lovenox. (5) Prolonged Q-T interval on ECG Status: Resolved Assessment & Plan: She did have a prolonged QT on her first EKG, but this has improved on repeat testing. (6) Down's syndrome Status: Chronic Time Spent on Plan of Care: < 30 min Copies to: ROBERT ACOSTA INSURANCE ACCOUNT MANAGER Exam Sepsis Risk: No Definite Risk Problem Qualifiers (1) Right lower lobe pneumonia: Pneumonia type: due to unspecified organism Qualified Codes: J18.1 - Lobar pneumonia, unspecified organism NICKIE CARMONA MD Aug 27, 2017 14:40
[2017-08-27] MEDS: MELATONIN 3 MG TAB PO SCH (21:00)
[2017-08-27] MEDS: cefTRIAXone 1 GM VIAL IVP SCH (22:34)
[2017-08-28] MEDS: LEVALBUTEROL 1.25 MG/3 ML NEB NEB SCH ×4 (05:34→17:20)
[2017-08-28 07:03] LABS: PLATELET COUNT, AUTOMATED 215 K/uL (150-450)
[2017-08-28 07:05] VITALS: BP 112/82
[2017-08-28] MEDS: FLUoxetine HCL 10 MG CAP PO SCH (08:08)
[2017-08-28] MEDS: LEVOTHYROXINE SOD 0.05 MG TAB PO SCH (08:08)
[2017-08-28] MEDS: ENOXAPARIN 40 MG/0.4ML SYR SC SCH (08:08)
[2017-08-28] MEDS: lamoTRIgine 100 MG TAB PO SCH (08:09)
[2017-08-28] MEDS: DOCUSATE SODIUM 100 MG CAP PO SCH ×2 (08:11→21:00)
[2017-08-28] MEDS: POLYETHYLENE GLYCOL 17 GM PKT PO SCH (08:11)
[2017-08-28] MEDS: MULTIVITAMINS TAB PO SCH (08:11)
--- NOTE | 2017-08-28 11:17 | Hospitalist Progress Note ---
Subjective Progress Notes Subjective is a 57yo female with PMHx significant for Down's Syndrome, seizures, DVT, hypothyroidism. Her caregivers report she has had productive cough for upwards of one week. She has been less active. She has also not been eating as she usually does. They have not appreciated any fever. She did appear to be short of breath. She was evaluated in the Urgent Care and [facility] ER and found to be hypoxic and have RLL infiltrate on CXR. She also had CT pulmonary angiogram, which showed the RLL infiltrate and was negative for pulmonary embolus. She was recommended for admission. She is currently on Rocephin and Doxycycline. Her sputum CX is positive for Strept and sensitive to Rocephin. 08/28: Her Doxycycline was stopped yesterday and she is on Rocephin sensitive to Strept in throat CX. She is behaving better today and keeping her oxygen on. She is afebrile and her VS are stable. Patient Complains of: Neurological: Weakness, No: Syncope, Confusion, Dizziness Cardiovascular: No: Chest Pain, Palpitations Respiratory: Cough, Wheezing, Other, No: Congestion, Shortness of Breath Gastrointestinal: Bowel Movement, No Nausea, No Vomiting Genitourinary: No Dysuria, No Hematuria Musculoskeletal: Impaired Mobility, Other, No: Pain, Sprain, Strain Physical Exam Vital Signs Date Time Temp Pulse Resp B/P (MAP) Pulse Ox O2 Delivery O2 Flow Rate FiO2 08/28/17 09:46 94 Blow-by 5.0 08/28/17 09:05 86 20 08/28/17 07:05 97.5 112/82 (92) Intake and Output 08/29/17 07:00 Intake Total 100 ml Balance 100 ml Intake Oral 100 ml # Voids 1 # Bowel Movements 1 General Appearance: Awake, No Acute Distress, Afebrile Neuro: Other (no new gross deficit) ENT: Normal Cardiovascular: Normal Rhythm & Peripheral Pulses Respiratory: No Respiratory Distress (off and on low oxygen state) GI: Soft and Non-Tender Extremities: Soft and Non Tender Result Diagram: 08/28/17 0655 08/26/17 0516 Assessment and Plan Problems: (1) Right lower lobe pneumonia Status: Acute Assessment & Plan: She presented with a week of cough and was found to be hypoxic. Her WBC was normal, but a CT scan did show an infiltrate. She has been on empiric treatment with ceftriaxone and doxycycline. Her cultures have been negative. She is hypoxic, but requiring less O2 over night. She continues to be afebrile. 08/27: I will stop her Doxycycline and continue her Rocephin. I will recheck her CBC in am. I will reevaluate her in am and change her antibiotic to oral one. 08/28: I will change her Rocephin to Cefdinir 300mg po bid for 6 more days in am and possible d/c back to [facility] on Wednesday (2) Hypothyroidism Status: Chronic Assessment & Plan: She is on chronic treatment with Synthroid. (3) Seizure disorder Status: Chronic Assessment & Plan: She is on chronic treatment with Lamictal. (4) History of DVT (deep vein thrombosis) Status: Resolved Assessment & Plan: She is not on chronic treatment, but we are treating her with prophylactic Lovenox. (5) Prolonged Q-T interval on ECG Status: Resolved Assessment & Plan: She did have a prolonged QT on her first EKG, but this has improved on repeat testing. (6) Down's syndrome Status: Chronic Central Venous Access Medical Necessity for Access: IV Access, Medication Administration Time Spent on Plan of Care: < 30 min Copies to: ROBERT ACOSTA ROLL FINISHER Exam Sepsis Risk: No Definite Risk Problem Qualifiers (1) Right lower lobe pneumonia: Pneumonia type: due to unspecified organism Qualified Codes: J18.1 - Lobar pneumonia, unspecified organism NICKIE CARMONA MD Aug 28, 2017 11:17
[2017-08-28] MEDS: ACETAMINOPHEN 325 MG TAB PO PRN (12:32)
[2017-08-28] MEDS: MELATONIN 3 MG TAB PO SCH (21:14)
[2017-08-28] MEDS: cefTRIAXone 1 GM VIAL IVP SCH (21:20)
[2017-08-29] MEDS: LEVALBUTEROL 1.25 MG/3 ML NEB NEB PRN (02:44)
[2017-08-29] MEDS: LEVALBUTEROL 1.25 MG/3 ML NEB NEB SCH ×4 (05:31→17:38)
[2017-08-29] MEDS: LEVOTHYROXINE SOD 0.05 MG TAB PO SCH (06:19)
--- NOTE | 2017-08-29 09:08 | Hospitalist Progress Note ---
Subjective Progress Notes Subjective This patient was admitted for pneumonia. She had no acute changes overnight. Patient Complains of: Cardiovascular: No: Chest Pain Respiratory: No: Cough, Shortness of Breath Physical Exam Vital Signs Date Time Temp Pulse Resp B/P (MAP) Pulse Ox O2 Delivery O2 Flow Rate FiO2 08/29/17 08:14 87 Blow-by 10.0 08/29/17 05:32 94 20 08/28/17 20:10 99.4 08/28/17 07:05 112/82 (92) Cardiovascular: Regular Rate and Rhythm Respiratory: Clear to Auscultation Extremities: No Edema Integumentary: No Cyanosis Result Diagram: 08/28/17 0655 08/26/17 0516 Item Value Date Time Sputum Culture - Final Complete 08/23/172011 Sputum Streptococcus Pneumoniae Assessment and Plan Problems: (1) Right lower lobe pneumonia Status: Acute Assessment & Plan: She presented with a week of cough and was found to be hypoxic. Her WBC was normal, but a CT scan did show an infiltrate. She was on empiric treatment with ceftriaxone and doxycycline, but has now been converted to oral cefdinir. Her sputum was positive for Streptococcus pneumonia. 08/27: I will stop her Doxycycline and continue her Rocephin. I will recheck her CBC in am. I will reevaluate her in am and change her antibiotic to oral one. 08/28: I will change her Rocephin to Cefdinir 300mg po bid for 6 more days in am and possible d/c back to [facility] on Wednesday (2) Hypoxia Assessment & Plan: She continues to have increased oxygen demands. We will try to wean her down today. (3) Hypothyroidism Status: Chronic Assessment & Plan: She is on chronic treatment with Synthroid. (4) Seizure disorder Status: Chronic Assessment & Plan: She is on chronic treatment with Lamictal. (5) History of DVT (deep vein thrombosis) Status: Resolved Assessment & Plan: She is not on chronic treatment, but we are treating her with prophylactic Lovenox. (6) Prolonged Q-T interval on ECG Status: Resolved Assessment & Plan: She did have a prolonged QT on her first EKG, but this has improved on repeat testing. (7) Down's syndrome Status: Chronic Central Venous Access Medical Necessity for Access: IV Access, Medication Administration Exam Sepsis Risk: No Definite Risk Problem Qualifiers (1) Right lower lobe pneumonia: Pneumonia type: due to unspecified organism Qualified Codes: J18.1 - Lobar pneumonia, unspecified organism ROBERT AVILA DO Aug 29, 2017 09:08
[2017-08-29] MEDS: lamoTRIgine 100 MG TAB PO SCH (09:32)
[2017-08-29] MEDS: FLUoxetine HCL 10 MG CAP PO SCH (09:32)
[2017-08-29] MEDS: DOCUSATE SODIUM 100 MG CAP PO SCH ×2 (09:32→20:56)
[2017-08-29] MEDS: CEFDINIR 300 MG CAP PO SCH ×2 (09:32→20:56)
[2017-08-29] MEDS: POLYETHYLENE GLYCOL 17 GM PKT PO SCH (09:32)
[2017-08-29] MEDS: MULTIVITAMINS TAB PO SCH (09:32)
[2017-08-29] MEDS: ENOXAPARIN 40 MG/0.4ML SYR SC SCH (09:33)
[2017-08-29 11:16] VITALS: BP 85/49
[2017-08-29] MEDS: MELATONIN 3 MG TAB PO SCH (20:56)
[2017-08-29 21:21] VITALS: BP 107/66
[2017-08-30] MEDS: LEVALBUTEROL 1.25 MG/3 ML NEB NEB SCH ×2 (05:31→09:06)
[2017-08-30] MEDS ORDERED: CEF300 PO (08:39)
[2017-08-30] MEDS: ENOXAPARIN 40 MG/0.4ML SYR SC SCH ×2 (09:00→10:29)
[2017-08-30 09:10] VITALS: Ht 152.4 cm; Wt 66.2 kg
[2017-08-30] MEDS: MULTIVITAMINS TAB PO SCH (10:28)
[2017-08-30] MEDS: FLUoxetine HCL 10 MG CAP PO SCH (10:28)
[2017-08-30] MEDS: LEVOTHYROXINE SOD 0.05 MG TAB PO SCH (10:29)
[2017-08-30] MEDS: CEFDINIR 300 MG CAP PO SCH (10:29)
[2017-08-30] MEDS: DOCUSATE SODIUM 100 MG CAP PO SCH (10:29)
[2017-08-30] MEDS: POLYETHYLENE GLYCOL 17 GM PKT PO SCH (10:30)
[2017-08-30] MEDS: lamoTRIgine 100 MG TAB PO SCH (10:35)
--- NOTE | 2017-08-30 10:36 | Hospitalist Depart ---
Discharge Summary Reason for Hosp/Final Diag: (1) Right lower lobe pneumonia Status: Acute Hospital Course & Plan: is a 57yo female with PMHx significant for Down's Syndrome, seizures, DVT, hypothyroidism. Her caregivers report she has had productive cough for upwards of one week. She has been less active. She has also not been eating as she usually does. They have not appreciated any fever. She did appear to be short of breath. She was evaluated in the Urgent Care and [facility] ER and found to be hypoxic and have RLL infiltrate on CXR. She also had CT pulmonary angiogram, which showed the RLL infiltrate and was negative for pulmonary embolus. She was recommended for admission. She is currently on Rocephin and Doxycycline. Her sputum CX is positive for Strept and sensitive to Rocephin. 08/28: Her Doxycycline was stopped yesterday and she is on Rocephin sensitive to Strept in throat CX. She is behaving better today and keeping her oxygen on. She is afebrile and her VS are stable. I will change her Rocephin to Cefdinir 300mg po bid for 6 more days in am and possible d/c back to [place] on Wednesday 08/30: She is hemodynamically stable and afebrile. Her IV Rocephin was switched to Cefdinir 300mg po bid for 2 more days. She is being d/c'd today back to [facility] with one to one attention for oxygen supply to maintain her O2 Sat >70%. (2) Hypoxia Status: Acute Hospital Course & Plan: She continues to have increased oxygen demands. We will try to wean her down today. 08/30: She does not want to take oxygen mask and she drops her O2 sat <50. She will require close supervision at [facility]. (3) Hypothyroidism Status: Chronic Hospital Course & Plan: She is on chronic treatment with Synthroid. (4) Seizure disorder Status: Chronic Hospital Course & Plan: She is on chronic treatment with Lamictal. (5) History of DVT (deep vein thrombosis) Status: Resolved Hospital Course & Plan: She is not on chronic treatment, but we are treating her with prophylactic Lovenox. (6) Prolonged Q-T interval on ECG Status: Resolved Hospital Course & Plan: She did have a prolonged QT on her first EKG, but this has improved on repeat testing. (7) Down's syndrome Status: Chronic Departure Weight (Pounds): 145 Weight (Ounces): 16.0 Result Diagram: 08/28/17 0655 08/26/17 0516 Condition: Improved Discharge: Other Facility Discharge Code Status: DNR Time Spent: < 30 min Discharge Instructions Home Meds Active Scripts Cefdinir 300 Mg Cap (OMNICEF 300 MG CAP (OR EQUIV)) 300 Mg Cap, 300 MG PO BID for 2 Days, #4 CAP Prov:NICKIE CARMONA MD 08/30/17 Reported Medications Parab/Cet Alc/Stryl Alc/Pg/Sls (CETAPHIL DAILY FACIAL CLEANSER) 473 Ml Cleanser , 1 ROB TP DAILY 08/24/17 Sodium Fluoride (PREVIDENT 5000 PLUS) 51 Gm Cream..g., 1 ROB DT BID 08/24/17 Gly/Dimeth/Petrolat,Wht/Water (CETAPHIL MOISTURIZING CREAM) 85 Gm Cream..g., 1 ROB TP BID 08/24/17 Melatonin (MELATONIN) 5 Mg Tab.rapdis, 5 MG PO QHS 08/23/17 Fluoxetine Hcl (FLUOXETINE HCL) 20 Mg Capsule, 30 MG PO QDAY, CAPSULE 08/23/17 Vit A/Vit C/Vit E/Zinc/Copper (PRESERVISION AREDS SOFTGEL) 1 Each Capsule, 1 EACH PO BID, CAPSULE 08/23/17 Multivitamin (MULTIVITAMINS) 1 Each Capsule, 1 EACH PO QDAY, CAPSULE 08/23/17 Levothyroxine Sodium (LEVOTHYROXINE SODIUM) 50 Mcg Tablet, 50 MCG PO QDAY, TAB 08/23/17 Acetaminophen (TYLENOL) 325 Mg Tablet, 650 MG PO BID, TAB 08/23/17 Eyelid Cleanser Combination #5 (OCUSOFT LID SCRUB) 1 Each Med..pad, 1 EACH TP QDAY 08/23/17 Fluticasone/Vilanterol 100/25 Mcg/Inh (BREO ELLIPTA 100/25 MCG) 1 Each Aer.pow.ba, 1 INH INH QDAY, INH 08/23/17 Polyvinyl Alcohol/Povidone/Pf (REFRESH CLASSIC EYE DROPS) 1 Each Droperette, 1 DROP OP 6 times a day 08/23/17 Petrolatum,White (AQUAPHOR) 99 Gm Oint...g., 99 GM TP QDAY 08/23/17 Chlorhexidine Gluconate (HIBICLENS) 118 Ml Liquid, 118 ML TP QDAY 08/23/17 Talc/Cellulos/Chloroxy/Aldioxa (ZEASORB POWDER) 71 Gm Powder, 71 GM TP BID 08/23/17 Lamotrigine (LAMOTRIGINE) 200 Mg Tab.er.24, 200 MG PO QDAY 08/23/17 Discontinued Reported Medications Lamotrigine (LAMOTRIGINE) 200 Mg Tablet, 200 MG PO DAILY 08/24/17 Parab/Cet Alc/Stryl Alc/Pg/Sls (CETAPHIL DAILY FACIAL CLEANSER) 473 Ml Cleanser , 473 ML TP QDAY 08/23/17 Sodium Fluoride (PREVIDENT 5000) 100 Ml Gel..ml., 100 ML DT 08/23/17 Talc/Cellulos/Chloroxy/Aldioxa (ZEASORB POWDER) 71 Gm Powder, 71 GM TP 05/28/17 Fluticasone/Vilanterol 100/25 Mcg/Inh (BREO ELLIPTA 100/25 MCG) 1 Each Aer.pow.ba, 1 INH INH QDAY, INH 05/28/17 Cetyl Alc/Stearyl Alc/Pg/Sls (CETAPHIL CREAM) 454 Gm Cream..g., 454 GM TP BID 02/01/14 [oxygen] No Conflict Check 11/02/13 Diazepam (DIAZEPAM) 5 Mg Tablet, 5 MG PO, #15 TAB take t mgg as needed q/2 hr prior to dental or gynecological appointments 10/27/13 Fluoxetine Hcl (PROZAC) 20 Mg Capsule, 20 MG PO QDAY, CAPSULE 10/27/13 [complete senior] No Conflict Check 11/09/11 Polysorbate 80/Glycerin (Refresh Dry Eye Therapy Drops) 15 Ml Drops EVERY 2 HOURS DURING THE DAY 11/09/11 Clindamycin Phos (CLINDAMYCIN 1% TOPICAL SOLN (PATIENT OWN)) 60 Ml Solution 11/09/11 [max vision] No Conflict Check 2 CAPS DAILY 11/09/11 Levothyroxine Sodium (Synthroid/Levothroid) 0.075 Mg Tab, 50 MCG PO QDAY, 0 Refills 08/01/10 Lamotrigine (Lamictal) 100 Mg Tab, 200 MG PO QDAY, 0 Refills take 200 mg daily at 0800 08/01/10 Discontinued Scripts Phenazopyridine Hcl (PHENAZOPYRIDINE HCL) 200 Mg Tablet, 200 MG PO TID Y for urinary burning, #9 TAB Prov:RADHA SNYDER DO 11/07/16 Cephalexin 500 Mg Tab (KEFLEX 500 MG TAB) 500 Mg Tablet, 500 MG PO TID for infection, #20 TAB Prov:RADHA SNYDER DO 11/07/16 Diet: Regular Activity: As Tolerated Special Instructions: keep oxygen as close to [place] as possible using oxymask, cannula, face tent or blow by with provided equipment. Use oximeter protocol to keep sats above at least 70% with target in upper 80's Copies to: ROBERT ACOSTA Venous Thromboembolism Antithrombotics Is Pt On Any Antithrombotics?: Yes Problem Qualifiers (1) Right lower lobe pneumonia: Pneumonia type: due to unspecified organism Qualified Codes: J18.1 - Lobar pneumonia, unspecified organism NICKIE CARMONA MD Aug 30, 2017 10:36
== END 2017-08-30 11:09 | disposition home or self-care (01) | DRG 195 ==
LOC: ER 17:42 → MED 21:04
PROVIDERS: ADMIT Internal Medicine; ATTEND Internal Medicine
DX: J13 Pneumonia due to Streptococcus pneumoniae (principal); R09.02 Hypoxemia; I45.81 Long QT syndrome; Z91.048 Other nonmedicinal substance allergy status; Z86.718 Personal history of other venous thrombosis and embolism; G40.909 Epilepsy, unspecified, not intractable, without status epilepticus; E03.9 Hypothyroidism, unspecified; Q90.9 Down syndrome, unspecified; R01.1 Cardiac murmur, unspecified; Z87.440 Personal history of urinary (tract) infections
CPT/HCPCS: 36415; 71275; 81001; 82040; 82247; 82310; 82374; 82435; 82565; 82607; 82746; 82947; 83605; 84075; 84132; 84155; 84295; 84450; 84460; 84484; 84520; 85025; 85379; 87040; 87070; 87077; 87186; 93005; 94640; 97161; 97166; 99285; J0696; J1650; J2060; J3490; J7030; J7050; Q9967

== ENCOUNTER → 2017-09-01 | Outpatient (CLI) | payer MEDICARE, MEDICAID ==
[2017-08-30 09:10] VITALS: BMI 28.3
[~2017-09-01] MED LIST changes: +ACET-1966 PO; +CEF300 PO; +CHLO118L6 TP; +EYEL1MED TP; +FLUO-176 PO; +FLUO-177 PO; +GLY/85CR2 TP; +LAMO200T3 PO; +LAMO200T45 PO; +LEVO50TA86 PO; +MELA10CA PO; +MELA5TAB20 PO; +MULT1CAP59 PO; +PETR99OI2 TP; +POLY1DRO10 OP; +SODI100G4 DT; +SODI51CR DT; +VIT1CAPS34 PO; +[UNRECOGNIZED DRUG - CODE] TP
--- NOTE | 2017-09-01 11:50 | RADIOLOGY IMAGING REPORT ---
FAC[place] [facility] [place]IENT NAME: Keerthi Melendez : 1960 MR: [id number] V: [id number] EXAM DATE: ORDERING PHYSICIAN: TONYA RAMIRES TECHNOLOGIST: Location: [facility] Patient: Keerthi Melendez : 1960 Visit/Account:[id number] Date of Sevice: 09/01/2017 Exam type: CHEST PA AND LAT History: Pneumonia Comparison: CTA chest August 23, 2017. Findings: There is been marked interval worsening of the patchy infiltrates throughout the lungs. There is no evidence of pleural effusions. The cardiac silhouette is normal in size. There is moderate ectasia the thoracic aorta. There is an exaggeration of the normal thoracic kyphosis secondary to multilevel spondylotic changes IMPRESSION: 1. There is been marked interval worsening of the patchy infiltrates throughout both lungs when comp ared to the CT of the chest from August 23, 2017. Findings are consistent with multifocal pneumonia Report Dictated By: Daisy Espinal MD at 09/01/2017 11:44 AM Report E-Signed By: Daisy Espinal MD at 09/01/2017 11:46 AM WSN:[email or web address]
== END ==
LOC: RAD 11:09
PROVIDERS: ATTEND Family Medicine
DX: J18.9 Pneumonia, unspecified organism (principal)
CPT/HCPCS: 71046

== ENCOUNTER 2017-09-02 11:12 | Inpatient (IN) | payer MEDICARE, MEDICAID ==
[~2017-09-02] VITALS: Ht 142.2 cm; Wt 69.9 kg
[~2017-09-02 11:12] MED LIST changes: -FLUO-176 PO; -MELA10CA PO
--- NOTE | 2017-09-02 11:28 | ER Report ---
History and Physical Time Seen By MD: 11:28 Hx. of Stated Complaint: PATIENT IS AN [facility] CLIENT THAT WAS RECENTLY DISCHARGED FROM THE HOSPITAL ON WEDNESDAY. SHE WAS BEING TREATED FOR PNUEMONIA. [facility] CALLED EMS FOR LOW OXYGEN SATURATIONS. HPI/ROS CHIEF COMPLAINT: Hypoxia HISTORY OF PRESENT ILLNESS: 57-year-old female patient presents to emergency room with complaint of hypoxia. Patient is a resident of the [facility]. She was recently discharged from hospital. She was diagnosed with pneumonia and was discharged with hypoxia. Patient was irritable and would not keep the oxygen on. They did follow-up with the primary care provider yesterday, he repeated the x-ray and noted that she is having worsening pneumonia. We did start her on doxycycline and azithromycin. She did have a single dose of age. This morning patient had a SPO2 of 58%. They decided to contact EMS and patient was brought to the emergency room. REVIEW OF SYSTEMS: Respiratory: As noted above Cardiovascular: No chest pain, no palpitations. Gastrointestinal: No vomiting, no abdominal pain. Musculoskeletal: No back pain. Allergies: Uncoded Allergies: perfume (Allergy, Unknown, 02/01/14) skin sensitive to perfumed soaps and deodorants SOAP (Adverse Reaction, Unknown, 02/01/14) Home Meds Active Scripts Cefdinir 300 Mg Cap (OMNICEF 300 MG CAP (OR EQUIV)) 300 Mg Cap, 300 MG PO BID for 2 Days, #4 CAP Prov:NICKIE CARMONA MD 08/30/17 Reported Medications Parab/Cet Alc/Stryl Alc/Pg/Sls (CETAPHIL DAILY FACIAL CLEANSER) 473 Ml Cleanser , 1 ROB TP DAILY 08/24/17 Sodium Fluoride (PREVIDENT 5000 PLUS) 51 Gm Cream..g., 1 ROB DT BID 08/24/17 Gly/Dimeth/Petrolat,Wht/Water (CETAPHIL MOISTURIZING CREAM) 85 Gm Cream..g., 1 ROB TP BID 08/24/17 Melatonin (MELATONIN) 5 Mg Tab.rapdis, 5 MG PO QHS 08/23/17 Fluoxetine Hcl (FLUOXETINE HCL) 20 Mg Capsule, 30 MG PO QDAY, CAPSULE 08/23/17 Vit A/Vit C/Vit E/Zinc/Copper (PRESERVISION AREDS SOFTGEL) 1 Each Capsule, 1 EACH PO BID, CAPSULE 08/23/17 Multivitamin (MULTIVITAMINS) 1 Each Capsule, 1 EACH PO QDAY, CAPSULE 08/23/17 Levothyroxine Sodium (LEVOTHYROXINE SODIUM) 50 Mcg Tablet, 50 MCG PO QDAY, TAB 08/23/17 Acetaminophen (TYLENOL) 325 Mg Tablet, 650 MG PO BID, TAB 08/23/17 Eyelid Cleanser Combination #5 (OCUSOFT LID SCRUB) 1 Each Med..pad, 1 EACH TP QDAY 08/23/17 Fluticasone/Vilanterol 100/25 Mcg/Inh (BREO ELLIPTA 100/25 MCG) 1 Each Aer.pow.ba, 1 INH INH QDAY, INH 08/23/17 Polyvinyl Alcohol/Povidone/Pf (REFRESH CLASSIC EYE DROPS) 1 Each Droperette, 1 DROP OP 6 times a day 08/23/17 Petrolatum,White (AQUAPHOR) 99 Gm Oint...g., 99 GM TP QDAY 08/23/17 Chlorhexidine Gluconate (HIBICLENS) 118 Ml Liquid, 118 ML TP QDAY 08/23/17 Talc/Cellulos/Chloroxy/Aldioxa (ZEASORB POWDER) 71 Gm Powder, 71 GM TP BID 08/23/17 Lamotrigine (LAMOTRIGINE) 200 Mg Tab.er.24, 200 MG PO QDAY 08/23/17 Past Medical/Surgical History Patient has a past medical history of Down syndrome, seizure, DVT, asthma, pneumonia, reflux, arthritis, hypothyroidism, developmental delay. Patient has no pertinent surgical history. Patient has a family medical history of diabetes. Reviewed Nurses Notes: Yes Hx Smoking: No Smoking Status: Never Smoker Exposure to Second Hand Smoke?: No Hx Substance Use Disorder: No Hx Alcohol Use: No Constitutional Vital Sign - Last 24 Hours 09/02/17 09/02/17 09/02/17 09/02/17 11:18 11:22 11:27 11:28 Temp 97.7 Pulse 72 63 Resp 24 B/P (MAP) 122/80 122/80 (94) Pulse Ox 93 96 O2 Delivery Non-Rebreather O2 Flow Rate 15.0 09/02/17 09/02/17 09/02/17 09/02/17 11:30 11:42 11:57 12:05 Pulse 80 58 B/P (MAP) 120/77 (91) 110/48 (68) Pulse Ox 77 97 09/02/17 09/02/17 09/02/17 09/02/17 12:12 12:15 12:27 12:30 Pulse 59 60 B/P (MAP) 99/49 (66) 107/82 (90) Pulse Ox 100 100 09/02/17 09/02/17 09/02/17 09/02/17 12:42 12:45 12:57 13:00 Pulse 54 54 B/P (MAP) 91/45 (60) 84/44 (57) Pulse Ox 100 100 09/02/17 09/02/17 09/02/17 09/02/17 13:10 13:15 13:28 13:30 Pulse 58 55 B/P (MAP) 92/42 (59) 103/50 (67) Pulse Ox 100 O2 Flow Rate 10.0 09/02/17 09/02/17 09/02/17 09/02/17 13:45 14:00 14:10 14:15 Pulse ??? 69 B/P (MAP) ???/??? (1665) ???/??? (1665) 127/83 (98) 107/64 (78) Pulse Ox 94 09/02/17 09/02/17 09/02/17 09/02/17 14:30 14:32 14:45 15:00 Pulse 61 B/P (MAP) 67/47 (54) 111/76 (88) 112/80 (91) 117/76 (90) Pulse Ox 95 09/02/17 15:06 Pulse 55 Physical Exam General Appearance: The patient is alert, has no immediate need for airway protection and no current signs of toxicity. Respiratory: Chest is non tender, lungs are diminished in the right lower lobe, rhonchi in the left upper and lower lobe to auscultation. Cardiac: regular rate and rhythm. Gastrointestinal: Abdomen is soft and non tender, no masses, bowel sounds normal. Musculoskeletal: Neck: Neck is supple and non tender. Extremities have full range of motion and are non tender. Skin: No rashes or lesions. DIFFERENTIAL DIAGNOSIS: After history and physical exam differential diagnosis was considered for shortness of breath including but not limited to pulmonary infectious process, COPD, asthma, pulmonary embolus and congestive heart failure. Medical Decision Making Data Points Result Diagram: 09/02/17 1230 09/02/17 1230 Laboratory Hematology Test 09/02/17 12:30 Red Blood Count 3.43 M/uL (4.17-5.56) Mean Corpuscular Volume 104.8 fL (80.0-96.0) Mean Corpuscular Hemoglobin 35.5 pg (26.0-33.0) Mean Corpuscular Hemoglobin Concent 33.8 g/dL (32.0-36.0) Red Cell Distribution Width 13.7 % (11.5-14.5) Mean Platelet Volume 9.0 fL (7.2-11.1) Neutrophils (%) (Auto) 67.3 % (39.4-72.5) Lymphocytes (%) (Auto) 19.7 % (17.6-49.6) Monocytes (%) (Auto) 9.5 % (4.1-12.4) Eosinophils (%) (Auto) 3.2 % (0.4-6.7) Basophils (%) (Auto) 0.3 % (0.3-1.4) Nucleated RBC Relative Count (auto) 0.1 /100WBC Neutrophils # (Auto) 2.8 K/uL (2.0-7.4) Lymphocytes # (Auto) 0.8 K/uL (1.3-3.6) Monocytes # (Auto) 0.4 K/uL (0.3-1.0) Eosinophils # (Auto) 0.1 K/uL (0.0-0.5) Basophils # (Auto) 0.0 K/uL (0.0-0.1) Nucleated RBC Absolute Count (auto) 0.00 K/uL Sodium Level 139 mmol/L (137-145) Potassium Level 4.1 mmol/L (3.5-5.0) Chloride Level 96 mmol/L (98-107) Carbon Dioxide Level 34 mmol/L (22-31) Blood Urea Nitrogen 11 mg/dl (7-18) Creatinine 0.90 mg/dl (0.52-1.04) Glomerular Filtration Rate Calc > 60.0 Random Glucose 80 mg/dl (75-110) Calcium Level 8.5 mg/dl (8.4-10.2) Total Bilirubin 0.4 mg/dl (0.2-1.3) Aspartate Amino Transf (AST/SGOT) 44 U/L (0-35) Alanine Aminotransferase (ALT/SGPT) 52 U/L (0-56) Alkaline Phosphatase 121 U/L (0-126) Troponin I < 0.012 ng/ml B-Type Natriuretic Peptide 305 pg/ml (0-100) Total Protein 7.1 gm/dl (6.3-8.2) Albumin 3.2 g/dl (3.5-5.0) Chemistry Test 09/02/17 12:30 White Blood Count 4.1 k/uL (4.5-11.0) Red Blood Count 3.43 M/uL (4.17-5.56) Hemoglobin 12.2 g/dL (12.0-16.0) Hematocrit 35.9 % (34.0-47.0) Mean Corpuscular Volume 104.8 fL (80.0-96.0) Mean Corpuscular Hemoglobin 35.5 pg (26.0-33.0) Mean Corpuscular Hemoglobin Concent 33.8 g/dL (32.0-36.0) Red Cell Distribution Width 13.7 % (11.5-14.5) Platelet Count 288 K/uL (150-450) Mean Platelet Volume 9.0 fL (7.2-11.1) Neutrophils (%) (Auto) 67.3 % (39.4-72.5) Lymphocytes (%) (Auto) 19.7 % (17.6-49.6) Monocytes (%) (Auto) 9.5 % (4.1-12.4) Eosinophils (%) (Auto) 3.2 % (0.4-6.7) Basophils (%) (Auto) 0.3 % (0.3-1.4) Nucleated RBC Relative Count (auto) 0.1 /100WBC Neutrophils # (Auto) 2.8 K/uL (2.0-7.4) Lymphocytes # (Auto) 0.8 K/uL (1.3-3.6) Monocytes # (Auto) 0.4 K/uL (0.3-1.0) Eosinophils # (Auto) 0.1 K/uL (0.0-0.5) Basophils # (Auto) 0.0 K/uL (0.0-0.1) Nucleated RBC Absolute Count (auto) 0.00 K/uL Glomerular Filtration Rate Calc > 60.0 Calcium Level 8.5 mg/dl (8.4-10.2) Total Bilirubin 0.4 mg/dl (0.2-1.3) Aspartate Amino Transf (AST/SGOT) 44 U/L (0-35) Alanine Aminotransferase (ALT/SGPT) 52 U/L (0-56) Alkaline Phosphatase 121 U/L (0-126) Troponin I < 0.012 ng/ml B-Type Natriuretic Peptide 305 pg/ml (0-100) Total Protein 7.1 gm/dl (6.3-8.2) Albumin 3.2 g/dl (3.5-5.0) EKG/Imaging EKG Interpretation 12 lead EKG: Rhythm: normal sinus rhythm with a ventricular rate of 75 bpm Powers: normal QRS: normal ST segments: T-wave flattening in leads V4, V5 and V6 Imaging CTA CHEST WW/O CNTR (PULM ANG) HISTORY: Hypoxia, elevated d-dimer ADDITIONAL HISTORY: None. TECHNIQUE: CTA chest with intravenous contrast. Axial imaging acquired following administration of IV contrast timed for maximum opacification of the pulmonary arterial vasculature. Slab 3-D MIP reconstructed images were also created for further evaluation and interpretation. Reconstruction of the source data set includes multiplanar 2-D in the sagittal and coronal planes and 3-D reconstructed coronal slab MIP series. 3-D images were created by the technologist. Dose Lowering Technique One of the following dose optimization techniques was utilized in the performance of this exam: Automated exposure control; adjustment of the mA and/ or kV according to the patient's size; or use of an iterative reconstruction technique. Specific details can be referenced in the facility's radiology CT exam operational policy. CONTRAST: 150 mL Isovue-370 . The patient was initially injected intravenously with 75 mL of Isovue-370. All the contrast apparently extravasated into the patient's right arm. The patient was then reinjected with an additional 75 L of Isovue-370 and the CTA of the chest was performed without further event. The emergency room was notified of the contrast extravasation. The patient was being admitted to the floor and will receive ongoing evaluation for the contrast extravasation. COMPARISON: August 23, 2017 FINDINGS: Lungs/pleura: There are patchy dense areas of airspace consolidation in the upper lobes bilateral lower lobes right side more affected than the left. There are small bilateral posterior layering pleural effusions. Heart/vessels: There is no evidence of pulmonary emboli Mediastinum/lymph nodes: Enlarged mediastinal and right hilar lymph nodes appear relatively unchanged Visualized upper abdomen: Negative. Bones/soft tissues: Moderate to severe multilevel spondylotic changes in the thoracic spine. There is a large amount of extravasated contrast seen in the right arm centered about the antecubital fossa although extending both proximally and distally Additional findings: None IMPRESSION: No evidence of pulmonary emboli Patchy areas of dense airspace consolidation in the upper lobes and lower lobes right side more affected than the left likely related to multifocal pneumonia. Small bilateral posterior layering pleural effusions Enlarged mediastinal right hilar lymph nodes appear similar to the prior study Moderate severe multilevel spinal changes of the thoracic spine Large amount extravasated contrast is seen in the right arm as described above Report Dictated By: Daisy Espinal MD at 09/02/2017 2:29 PM Report E-Signed By: Daisy Espinal MD at 09/02/2017 2:44 PM ED Course/Re-evaluation ED Course Patient was admitted to exam room, history and physical were obtained. Differential diagnoses were considered. On examination patient did have diminished lung sounds in the right lower lobe as well as rhonchi in the left upper and lower lobes. Patient initially would not allow us to do any interventions, she would not allow us to start an IV or even have oxygen blow- by. We did go ahead and give the patient 20 mg of ketamine. I did allow her to calm down. Were able to put the oxygen on was able to get an IV started. A CBC, CMP, BNP, troponin, EKG were done. EKG showed a normal sinus rhythm, however she did have some flattening of the T waves in lead V4, V5 and V6. The CBC showed a white count of 4.1, there was no left shift. CMP was unremarkable. BNP was 300. Troponin was negative. A d-dimer was done which was elevated. A CT scan of the chest was done. That showed multifocal pneumonia with layering pleural effusions bilaterally. We were able to keep the patient greater than 90 % on 8 L of oxygen. I discussed the case with Dr. Carmona, hospitalist. He felt that the patient could go home. He felt that they could do a one-on-one and keep tabs on her. I discussed this with the caregiver from the [facility]. She states she did not feel comfortable doing that. She states that they would not be able to provide her the proper care. I then spoke with Dr. Carmona who did agree to accept the patient for admission. Decision to Disposition Date: Sep 02, 2017 Decision to Disposition Time: 15:46 Depart Departure Latest Vital Signs Vital Signs Date Time Temp Pulse Resp B/P (MAP) Pulse Ox O2 Delivery O2 Flow Rate FiO2 09/02/17 15:06 55 09/02/17 15:00 117/76 (90) 09/02/17 14:45 95 09/02/17 13:28 10.0 09/02/17 11:18 97.7 24 Non-Rebreather Impression: Primary Impression: Multifocal pneumonia Condition: Condition Unchanged Disposition: Admitted from ER NYDIA REIS Sep 02, 2017 11:28
--- NOTE | 2017-09-02 11:46 | EKG ---
FACILITY: [facility] - [place] PATIENT NAME: WALTER CADENA : [id number] MR: [id number] V: [id number] EXAM DATE: ORDERING PHYSICIAN: NYDIA REIS TECHNOLOGIST: JAMES Daniels Reason : SOB Blood Pressure : / mmHG Vent. Rate : 075 BPM Atrial Rate : 075 BPM P-R Int : 138 ms QRS Dur : 084 ms QT Int : 436 ms P-R-T Axes : 046 056 028 degrees QTc Int : 486 ms Normal sinus rhythm T wave abnormality, consider anterior ischemia Prolonged QT Abnormal ECG When compared with ECG of 24-AUG-2017 07:23, T wave inversion more evident in Anterior leads Confirmed by ROBERT AVILA ([id number]) on 09/04/2017 7:43:31 AM Referred By: SMILEY Confirmed By:ROBERT AVILA
[2017-09-02] MEDS ORDERED: KETAMINE HCL 500 MG/5 ML VIAL IM ONE (11:50)
[2017-09-02 12:43] LABS: PLATELET COUNT, AUTOMATED 288 K/uL (150-450)
[2017-09-02] MEDS ORDERED: NS 0.9% 20 ML SDV 40 ML ONE (13:35)
[2017-09-02] MEDS ORDERED: IOPAMIDOL 76% 75 ML INFUS BTL 75 ML ONE ×2 (13:35→14:00)
[2017-09-02] MEDS ORDERED: NS 0.9% 20 ML SDV 100 ML ONE (14:00)
[2017-09-02] MEDS ORDERED: NS(*) 0.9% 1000 ML BAG 1,000 ML IV ONE (14:35)
--- NOTE | 2017-09-02 14:48 | RADIOLOGY IMAGING REPORT ---
FACILITY: [facility] PATIENT NAME: Keerthi Melendez : 1960 MR: [id number] V: [id number] EXAM DATE: ORDERING PHYSICIAN: NYDIA REIS TECHNOLOGIST: Location: [facility] Patient: Keerthi Melendez : 1960 Visit/Account:[id number] Date of Sevice: 09/02/2017 CTA CHEST WW/O CNTR (PULM ANG) HISTORY: Hypoxia, elevated d-dimer ADDITIONAL HISTORY: None. TECHNIQUE: CTA chest with intravenous contrast. Axial imaging acquired following administration of IV contrast timed for maximum opacification of the pulmonary arterial vasculature. Slab 3-D MIP clare nstructed images were also created for further evaluation and interpretation. Reconstruction of the [facility] data set includes multiplanar 2-D in the sagittal and coronal planes and 3-D reconstructed christophe nal slab MIP series. 3-D images were created by the technologist. Dose Lowering Technique One of the following dose optimization techniques was utilized in the performance of this exam: Autom ated exposure control; adjustment of the mA and/or kV according to the patient's size; or use of an i terative reconstruction technique. Specific details can be referenced in the facility's radiology C T exam operational policy. CONTRAST: 150 mL Isovue-370 . The patient was initially injected intravenously with 75 mL of Isovu e-370. All the contrast apparently extravasated into the patient's right arm. The patient was then reinjected with an additional 75 L of Isovue-370 and the CTA of the chest was performed without furth er event. The emergency room was notified of the contrast extravasation. The patient was being admi tted to the floor and will receive ongoing evaluation for the contrast extravasation. COMPARISON: August 23, 2017 FINDINGS: Lungs/pleura: There are patchy dense areas of airspace consolidation in the upper lobes bilateral lo wer lobes right side more affected than the left. There are small bilateral posterior layering pleur al effusions. Heart/vessels: There is no evidence of pulmonary emboli Mediastinum/lymph nodes: Enlarged mediastinal and right hilar lymph nodes appear relatively unchange d Visualized upper abdomen: Negative. Bones/soft tissues: Moderate to severe multilevel spondylotic changes in the thoracic spine. There is a large amount of extravasated contrast seen in the right arm centered about the antecubital fossa although extending both proximally and distally Additional findings: None IMPRESSION: No evidence of pulmonary emboli Patchy areas of dense airspace consolidation in the upper lobes and lower lobes right side more affec kathy than the left likely related to multifocal pneumonia. Small bilateral posterior layering pleural effusions Enlarged mediastinal right hilar lymph nodes appear similar to the prior study Moderate severe multilevel spinal changes of the thoracic spine Large amount extravasated contrast is seen in the right arm as described above Report Dictated By: Daisy Espinal MD at 09/02/2017 2:29 PM Report E-Signed By: Daisy Espinal MD at 09/02/2017 2:44 PM RAMOSN:AMICIVN
[2017-09-02 16:31] VITALS: BP 135/72
--- NOTE | 2017-09-02 17:56 | History & Physical ---
History of Present Illness Chief Complaint AMS and hypoxia History of Present Illness Ms. Melendez is a 57-year-old female patient with PMHx significant for Down's Syndrome, seizures, DVT, hypothyroidism who presented to emergency room with complaint of hypoxia. Patient is a resident of the [facility]. She was recently discharged from hospital. She was diagnosed with R-sided Strept. pneumonia and treated with IV antibiotics Rocephin and Doxycycline and was discharged with Cefdinir 300mg po bid for 6 more days. She was hypoxic on d/c because she does not wear her oxygen. Her Cefdinir was stopped at the [facility] facility. She did follow-up with the primary care provider yesterday, he repeated the x-ray and noted that she is having worsening pneumonia. She was placed on doxycycline and azithromycin. This morning patient had a SPO2 of 58%. They decided to contact EMS and patient was brought to the emergency room. Er evaluation revealed negative for APE on CTA but multifocal infiltrates. She was afebrile and her WBC were normal. I discussed the case with the ER-MD and admitted the patient for further evaluation and management. She is wearing her oxygen mask and her O2 Sat is 91%. She seems comfortable. I had a extensive meeting with the family members, ARC members and house designer and made a short term and a terminal operator plan with their consensus. History Home Meds Active Scripts Cefdinir 300 Mg Cap (OMNICEF 300 MG CAP (OR EQUIV)) 300 Mg Cap, 300 MG PO BID for 2 Days, #4 CAP Prov:NICKIE CARMONA MD 08/30/17 Reported Medications Parab/Cet Alc/Stryl Alc/Pg/Sls (CETAPHIL DAILY FACIAL CLEANSER) 473 Ml Cleanser , 1 ROB TP DAILY 08/24/17 Sodium Fluoride (PREVIDENT 5000 PLUS) 51 Gm Cream..g., 1 ROB DT BID 08/24/17 Gly/Dimeth/Petrolat,Wht/Water (CETAPHIL MOISTURIZING CREAM) 85 Gm Cream..g., 1 ROB TP BID 08/24/17 Melatonin (MELATONIN) 5 Mg Tab.rapdis, 5 MG PO QHS 08/23/17 Fluoxetine Hcl (FLUOXETINE HCL) 20 Mg Capsule, 30 MG PO QDAY, CAPSULE 08/23/17 Vit A/Vit C/Vit E/Zinc/Copper (PRESERVISION AREDS SOFTGEL) 1 Each Capsule, 1 EACH PO BID, CAPSULE 08/23/17 Multivitamin (MULTIVITAMINS) 1 Each Capsule, 1 EACH PO QDAY, CAPSULE 08/23/17 Levothyroxine Sodium (LEVOTHYROXINE SODIUM) 50 Mcg Tablet, 50 MCG PO QDAY, TAB 08/23/17 Acetaminophen (TYLENOL) 325 Mg Tablet, 650 MG PO BID, TAB 08/23/17 Eyelid Cleanser Combination #5 (OCUSOFT LID SCRUB) 1 Each Med..pad, 1 EACH TP QDAY 08/23/17 Fluticasone/Vilanterol 100/25 Mcg/Inh (BREO ELLIPTA 100/25 MCG) 1 Each Aer.pow.ba, 1 INH INH QDAY, INH 08/23/17 Polyvinyl Alcohol/Povidone/Pf (REFRESH CLASSIC EYE DROPS) 1 Each Droperette, 1 DROP OP 6 times a day 08/23/17 Petrolatum,White (AQUAPHOR) 99 Gm Oint...g., 99 GM TP QDAY 08/23/17 Chlorhexidine Gluconate (HIBICLENS) 118 Ml Liquid, 118 ML TP QDAY 08/23/17 Talc/Cellulos/Chloroxy/Aldioxa (ZEASORB POWDER) 71 Gm Powder, 71 GM TP BID 08/23/17 Lamotrigine (LAMOTRIGINE) 200 Mg Tab.er.24, 200 MG PO QDAY 08/23/17 Allergies: Uncoded Allergies: perfume (Allergy, Unknown, 02/01/14) skin sensitive to perfumed soaps and deodorants SOAP (Adverse Reaction, Unknown, 02/01/14) Patient History: FH: HTN (hypertension) FATHER Hx Smoking: No Smoking Status: Never Smoker Exposure to Second Hand Smoke?: No Caffeine Intake: Soda Caffeine/Cups Per Day: 3 Hx Alcohol Use: No Hx Substance Use Disorder: No Social Drug Use: Never Review of Systems Constitutional: No Fever, No Weight Loss, No Weight Gain, No Chills Neurological: No Syncope, No Confusion, No Weakness, No Dizziness, No Slurred Speech ENT: No Sinus Congestion, No Sore Throat Cardiovascular: No Chest Pain, No Palpitations Respiratory: No Shortness of Breath, No Cough, No Wheezing Gastrointestinal: No Nausea, No Vomiting, No Diarrhea, No Dysphagia, No Constipation, No Early Satiety, No Hematochezia, No Melena, No Abdominal Pain Genitourinary: No Dysuria, No Hematuria Musculoskeletal: No Pain, No Sprain, No Strain, No Impaired Mobility Exam Vital Signs Vital Signs Date Time Temp Pulse Resp B/P (MAP) Pulse Ox O2 Delivery O2 Flow Rate FiO2 09/02/17 16:31 97.0 70 20 135/72 (93) 97 Oxy Mask 9.0 General Appearance: Alert, Awake, No Acute Distress, Afebrile Neuro: No Gross deficits Eyes: PERRLA ENT: Normal Cardiovascular: Regular Rate and Rhythm Respiratory: No Respiratory Distress GI: Abd Soft and Non-Tender Extremities: Soft and Non Tender Integumentary: Skin Intact without Lesion / Mass Psych: Other (down syndrome) Medical Decision Making Data Points Result Diagram: 09/02/17 1230 09/02/17 1230 EKG / Imaging Imaging reviewed Pre-Admit Course Medical Record Review: Yes Assessment and Plan Problems: (1) Multifocal pneumonia Status: Acute Assessment & Plan: I will admit the patient to Medical floor I will start her on Rocephin 1gm IVPB q daily I will also add Zithromycin 500mg IV q daily I will Try Lasix 40mg IV q daily for possible mild pulmonary edema I will repeat her labs in am. (2) Hypoxia Status: Acute Assessment & Plan: I will place Ventimask all the time to keep the O2 sat >90% (3) Down's syndrome Status: Chronic Assessment & Plan: I will continue her home management Central Venous Access Medical Necessity for Access: IV Access, Medication Administration Time Spent on Plan of Care: < 30 min Copies to: TONYA RAMIRES DO Venous Thromboembolism VTE Risk Physician Assess for VTE Risk: Yes Patient's VTE Risk: Low VTE Diagnostic Test 2 Days Prior to Admit: No Antithrombotics Is Pt On Any Antithrombotics?: No Exam Sepsis Risk: No Definite Risk NICKIE CARMONA MD Sep 02, 2017 17:12
[2017-09-02] MEDS ORDERED: PATIENT'S OWN MED INH SCH (18:00)
[2017-09-02] MEDS ORDERED: GLYCERIN OU SCH (18:00)
[2017-09-02] MEDS ORDERED: CARBOXYMETHYL OU SCH (18:00)
[2017-09-02] MEDS ORDERED: ACET-1966 PO (18:32)
[2017-09-02] MEDS ORDERED: MELA10CA PO (18:32)
[2017-09-02] MEDS ORDERED: FLUO-176 PO (18:37)
[2017-09-02] MEDS ORDERED: FLUSH 10 ML SYR IVP PRN (18:45)
[2017-09-02] MEDS ORDERED: ONDANSETRON 4 MG/2 ML VIAL IVP PRN (18:45)
[2017-09-02] MEDS ORDERED: NS 0.9% IVPB ONE (20:00)
[2017-09-02] MEDS ORDERED: CEFTRIAXONE IVPB ONE (20:00)
[2017-09-02] MEDS ORDERED: NS(*) 0.9% 250 ML BAG 250 ML ONE (20:30)
[2017-09-02] MEDS: MELATONIN 3 MG TAB PO SCH (20:30)
[2017-09-02] MEDS: BETA-CAROTENE(A) & E/MIN TAB PO SCH (20:30)
[2017-09-02] MEDS: AZITHROMYCIN(*) 500 MG 500 MG in NS(*) 0.9% 250 ML BAG 250 ML IV SCH (21:28)
[2017-09-03] MEDS: LEVOTHYROXINE SOD 0.05 MG TAB PO SCH (05:59)
[2017-09-03 06:11] LABS: PLATELET COUNT, AUTOMATED 231 K/uL (150-450)
[2017-09-03 08:54] VITALS: Ht 142.2 cm; Wt 69.9 kg
[2017-09-03] MEDS: FLUTICASONE/VILANTEROL 100 MCG/25 MCG INH INH SCH (09:00)
[2017-09-03] MEDS: PATIENT'S OWN MED TP SCH (09:00)
[2017-09-03] MEDS: FLUoxetine HCL 10 MG CAP PO SCH (09:06)
[2017-09-03] MEDS: PANTOPRAZOLE SOD 40 MG TABEC PO SCH (09:06)
[2017-09-03] MEDS: lamoTRIgine 100 MG TAB PO SCH (09:06)
[2017-09-03] MEDS: DOCUSATE SODIUM 100 MG CAP PO SCH (09:06)
[2017-09-03] MEDS: MULTIVITAMINS TAB PO SCH (09:06)
[2017-09-03] MEDS: BETA-CAROTENE(A) & E/MIN TAB PO SCH ×2 (09:06→20:46)
[2017-09-03] MEDS: ENOXAPARIN 40 MG/0.4ML SYR SC SCH (09:07)
[2017-09-03 09:12] VITALS: BP 117/59
--- NOTE | 2017-09-03 11:47 | Hospitalist Progress Note ---
Subjective Progress Notes Subjective Ms. Melendez is a 57-year-old female patient with PMHx significant for Down's Syndrome, seizures, DVT, hypothyroidism who presented to emergency room with complaint of hypoxia. Patient is a resident of the [facility]. She was recently discharged from hospital. She was diagnosed with R-sided Strept. pneumonia and treated with IV antibiotics Rocephin and Doxycycline and was discharged with Cefdinir 300mg po bid for 6 more days. She was hypoxic on d/c because she does not wear her oxygen. Her Cefdinir was stopped at the [facility] facility. She did follow-up with the primary care provider yesterday, he repeated the x-ray and noted that she is having worsening pneumonia. She was placed on doxycycline and azithromycin. This morning patient had a SPO2 of 58%. They decided to contact EMS and patient was brought to the emergency room. Er evaluation revealed negative for APE on CTA but multifocal infiltrates. She was afebrile and her WBC were normal. I discussed the case with the ER-MD and admitted the patient for further evaluation and management. She is wearing her oxygen mask and her O2 Sat is 91%. She seems comfortable. I had a extensive meeting with the family members, ARC members and house father and made a short term and a senior care plan with their consensus. 09/03: No significant change in her overall status. She is afebrile, hemodynamically and medically stable. She is on Rocephin and Zithromax and awaiting senior care placement. Patient Complains of: Neurological: Confusion, No: Weakness Cardiovascular: No: Chest Pain Respiratory: No: Cough, Shortness of Breath Gastrointestinal: No Nausea, No Vomiting Genitourinary: No Dysuria, No Hematuria Musculoskeletal: No: Pain, Sprain, Strain, Impaired Mobility Physical Exam Vital Signs Date Time Temp Pulse Resp B/P (MAP) Pulse Ox O2 Delivery O2 Flow Rate FiO2 09/03/17 09:12 97.9 66 18 117/59 (78) 88 Oxy Mask 10.0 Intake and Output 09/04/17 07:00 Intake Total 210 ml Balance 210 ml Intake Oral 210 ml General Appearance: Alert, Awake, No Acute Distress, Afebrile Neuro: No Gross deficits Eyes: PERRLA ENT: Normal Cardiovascular: Regular Rate and Rhythm Respiratory: No Respiratory Distress GI: Soft and Non-Tender Extremities: Soft and Non Tender (RUE with edema at the site ofIV contrast) Result Diagram: 09/03/17 0600 09/03/17 0600 Assessment and Plan Problems: (1) Multifocal pneumonia Status: Acute Assessment & Plan: I will admit the patient to Medical floor I will start her on Rocephin 1gm IVPB q daily I will also add Zithromycin 500mg IV q daily I will Try Lasix 40mg IV q daily for possible mild pulmonary edema I will repeat her labs in am. : I will continue the same management I will get CBC and BMP in am I will get CXR in am (2) Hypoxia Status: Chronic Assessment & Plan: I will place Ventimask all the time to keep the O2 sat >90% (3) Down's syndrome Status: Chronic Assessment & Plan: I will continue her home management Central Venous Access Medical Necessity for Access: IV Access, Medication Administration Time Spent on Plan of Care: < 30 min Copies to: TONYA RAMIRES DO Exam Sepsis Risk: No Definite Risk NICKIE CARMONA MD Sep 03, 2017 11:47
[2017-09-03 12:37] VITALS: BP 131/84
[2017-09-03 15:34] VITALS: BP 110/58
[2017-09-03 18:58] VITALS: BP 128/72
[2017-09-03] MEDS: ACETAMINOPHEN 325 MG TAB PO PRN (19:32)
[2017-09-03] MEDS ORDERED: cefTRIAXone 2 GM VIAL IVP SCH (20:00)
[2017-09-03] MEDS: MELATONIN 3 MG TAB PO SCH (20:46)
[2017-09-03] MEDS: AZITHROMYCIN(*) 500 MG 500 MG in NS(*) 0.9% 250 ML BAG 250 ML IV SCH (20:46)
[2017-09-04] MEDS: LEVOTHYROXINE SOD 0.05 MG TAB PO SCH (06:24)
[2017-09-04] MEDS: PATIENT'S OWN MED TP SCH (09:00)
[2017-09-04] MEDS: FLUTICASONE/VILANTEROL 100 MCG/25 MCG INH INH SCH (09:00)
--- NOTE | 2017-09-04 09:52 | Hospitalist Progress Note ---
Subjective Progress Notes Subjective This patient was originally admitted for pneumonia, but returned secondary to decreased oxygen saturation. Patient Complains of: Cardiovascular: No: Chest Pain Respiratory: No: Cough, Shortness of Breath Physical Exam Vital Signs Date Time Temp Pulse Resp B/P (MAP) Pulse Ox O2 Delivery O2 Flow Rate FiO2 09/03/17 19:20 94 Blow-by 10.0 09/03/17 18:58 98.0 76 128/72 (90) 09/03/17 15:34 20 Cardiovascular: Regular Rate and Rhythm Respiratory: Other (Right sided rhonchi.) GI: Soft and Non-Tender Extremities: No Edema Integumentary: No Cyanosis Result Diagram: 09/03/17 0600 09/03/17 0600 Assessment and Plan Problems: (1) Multifocal pneumonia Status: Acute Assessment & Plan: She was previously admitted for pneumonia and was treated with IV antibiotics and later converted to oral cefdinir. She has now completed a full course of treatment. She remains afebrile and her WBC is normal. Her sputum culture from the last admission showed Streptococcus pneumoniae. Her CT from this visit continues to show right sided infiltrates. (2) Hypoxia Status: Chronic Assessment & Plan: She has had hypoxia since her last admission. She will not wear a nasal cannula or mask. She has been receiving blow by oxygen, which has had little effect on her saturation. This morning she had a saturation in the 90% range on room air. (3) Down's syndrome Status: Chronic Assessment & Plan: She has resided at the [facility], but is now exceeding their care capabilities. Social work is planning to meet with the family on Wednesday. (4) Hypothyroidism Status: Chronic Assessment & Plan: She is on chronic treatment with Synthroid, but her TSH is elevated. We will increase her dose today. She will require a repeat TSH in 4- 6 weeks. Central Venous Access Medical Necessity for Access: IV Access, Medication Administration Exam Sepsis Risk: No Definite Risk ROBERT AVILA DO Sep 04, 2017 09:52
[2017-09-04 10:00] VITALS: BP 106/57
[2017-09-04] MEDS: FLUoxetine HCL 10 MG CAP PO SCH (10:11)
[2017-09-04] MEDS: DOCUSATE SODIUM 100 MG CAP PO SCH (10:11)
[2017-09-04] MEDS: PANTOPRAZOLE SOD 40 MG TABEC PO SCH (10:11)
[2017-09-04] MEDS: BETA-CAROTENE(A) & E/MIN TAB PO SCH ×2 (10:12→20:36)
[2017-09-04] MEDS: lamoTRIgine 100 MG TAB PO SCH (10:12)
[2017-09-04] MEDS: MULTIVITAMINS TAB PO SCH (10:12)
[2017-09-04] MEDS: ENOXAPARIN 40 MG/0.4ML SYR SC SCH (10:18)
--- NOTE | 2017-09-04 11:05 | RADIOLOGY IMAGING REPORT ---
FACILITY: [facility] PATIENT NAME: Keerthi Melendez : 1960 MR: [id number] V: [id number] EXAM DATE: ORDERING PHYSICIAN: NICKIE CARMONA TECHNOLOGIST: Location: [facility] Patient: Keerthi Melendez : 1960 Visit/Account:[id number] Date of Sevice: 09/04/2017 CHEST PA AND LAT HISTORY: Pneumonia. COMPARISON: 09/01/2017. FINDINGS: PA and lateral views of the chest are submitted. Lines/tubes: None. Lungs/pleura: Slightly improved patchy bilateral consolidation. No pneumothorax or pleural effusion. Heart: Stable heart size. Mediastinum: Stable mediastinal contours. Bony structures/body wall: Degenerative changes in the spine. No acute osseous abnormality. IMPRESSION: Slightly improved patchy bilateral consolidation. Report Dictated By: Adeel Freire MD at 09/04/2017 10:59 AM Report E-Signed By: Adeel Freire MD at 09/04/2017 11:01 AM WSN:[id number]
[2017-09-04] MEDS: MELATONIN 3 MG TAB PO SCH (20:36)
[2017-09-04] MEDS: ACETAMINOPHEN 325 MG TAB PO PRN (20:36)
[2017-09-05] MEDS: LEVOTHYROXINE SOD 0.075 MG TAB PO SCH (05:45)
[2017-09-05] MEDS: FLUTICASONE/VILANTEROL 100 MCG/25 MCG INH INH SCH (09:00)
[2017-09-05] MEDS: PATIENT'S OWN MED TP SCH (09:00)
--- NOTE | 2017-09-05 09:08 | Hospitalist Progress Note ---
Subjective Progress Notes Subjective No concerns from staff overnight. The patient is not agreeable to talk. Physical Exam Vital Signs Date Time Temp Pulse Resp B/P (MAP) Pulse Ox O2 Delivery O2 Flow Rate FiO2 09/05/17 08:02 99 Blow-by 09/04/17 19:00 98.2 75 15 09/04/17 10:00 106/57 (73) 09/03/17 19:20 10.0 General Appearance: Other (Awakened easily. She just wants to go back to sleep. Not answering questions. ) Respiratory: Clear to Auscultation Result Diagram: 09/03/17 0600 09/03/17 0600 Assessment and Plan Problems: (1) Multifocal pneumonia Status: Acute Assessment & Plan: She was previously admitted for pneumonia and was treated with IV antibiotics and later converted to oral cefdinir. She has now completed a full course of treatment. She remains afebrile and her WBC is normal. Her sputum culture from the last admission showed Streptococcus pneumoniae. Her CT from this visit continues to show right sided infiltrates. (2) Hypoxia Status: Chronic Assessment & Plan: She has had hypoxia since her last admission. She will not wear a nasal cannula or mask. Blow by oxygen can be affective if placed appropriately. Will get a weight today, if up from previous admissions, will give a dose of Lasix. (3) Down's syndrome Status: Chronic Assessment & Plan: She has resided at the [facility], but is now exceeding their care capabilities. Social work is planning to meet with the family on Wednesday. (4) Hypothyroidism Status: Chronic Assessment & Plan: She is on chronic treatment with Synthroid, but her TSH is elevated. Dose increased this admission. She will require a repeat TSH in 4-6 weeks. Central Venous Access Medical Necessity for Access: IV Access, Medication Administration Exam Sepsis Risk: No Definite Risk MIRANDA NEWMAN MD Sep 05, 2017 09:08
[2017-09-05] MEDS: ENOXAPARIN 40 MG/0.4ML SYR SC SCH (10:49)
[2017-09-05] MEDS: FLUoxetine HCL 10 MG CAP PO SCH (10:50)
[2017-09-05] MEDS: MULTIVITAMINS TAB PO SCH (10:50)
[2017-09-05] MEDS: PANTOPRAZOLE SOD 40 MG TABEC PO SCH (10:50)
[2017-09-05] MEDS: lamoTRIgine 100 MG TAB PO SCH (10:50)
[2017-09-05] MEDS: DOCUSATE SODIUM 100 MG CAP PO SCH (10:50)
[2017-09-05 10:52] VITALS: BP 118/72
[2017-09-05 20:12] VITALS: BP 94/68
[2017-09-05] MEDS: MELATONIN 3 MG TAB PO SCH (20:40)
[2017-09-05] MEDS: BETA-CAROTENE(A) & E/MIN TAB PO SCH (20:41)
[2017-09-05] MEDS: ACETAMINOPHEN 325 MG TAB PO PRN (22:24)
[2017-09-06] MEDS: LEVOTHYROXINE SOD 0.075 MG TAB PO SCH (06:16)
[2017-09-06 07:49] VITALS: BP 127/75
[2017-09-06] MEDS: PATIENT'S OWN MED TP SCH (09:00)
--- NOTE | 2017-09-06 09:17 | Hospitalist Progress Note ---
Subjective Progress Notes Subjective She is currently awake and alert. She has been refusing to wear her O2. Oxygen saturations have been in mid-90% range on RA when awake. She does have sleep related hypoxia. Physical Exam Vital Signs Date Time Temp Pulse Resp B/P (MAP) Pulse Ox O2 Delivery O2 Flow Rate FiO2 09/06/17 08:26 92 09/06/17 08:26 Room Air 09/06/17 07:49 97.4 64 16 127/75 (92) 09/06/17 03:22 5.0 General Appearance: Alert, Awake Cardiovascular: Regular Rate and Rhythm Respiratory: Clear to Auscultation GI: Soft and Non-Tender Extremities: Warm, Perfused Result Diagram: 09/03/17 0600 09/03/17599 Assessment and Plan Problems: (1) Multifocal pneumonia Status: Acute Assessment & Plan: She was previously admitted for pneumonia and was treated with IV antibiotics and later converted to oral cefdinir. She has now completed a full course of treatment. She remains afebrile and her WBC is normal. Her sputum culture from the last admission showed Streptococcus pneumoniae. Her CT from this visit continued to show right sided infiltrates. It may, however, take up to 6 weeks to resolve radiographic evidence of her pneumonia. (2) Hypoxia Status: Chronic Assessment & Plan: She has had hypoxia since her last admission. She will not wear a nasal cannula or mask. Blow by oxygen can be affective if placed appropriately. At this point, it appears her pneumonia has resolved/is resolving and is related more to her sleeping. She very well could have sleep apnea and should have a formal sleep study if she has not already done so. We can try to keep her on nocturnal oxygen if she will wear it. (3) Down's syndrome Status: Chronic Assessment & Plan: She has resided at the [facility], but she may be exceeding their care capabilities. Social work is planning to meet with the family today. (4) Hypothyroidism Status: Chronic Assessment & Plan: She is on chronic treatment with Synthroid, but her TSH is elevated. Her dose has been increased this admission (now on L-thyroxine 75mcg daily). She will require a repeat TSH in 4-6 weeks. Central Venous Access Medical Necessity for Access: IV Access, Medication Administration Exam Sepsis Risk: No Definite Risk GLADYS WEBB MD Sep 06, 2017 09:17
[2017-09-06] MEDS: FLUoxetine HCL 10 MG CAP PO SCH (09:50)
[2017-09-06] MEDS: lamoTRIgine 100 MG TAB PO SCH (09:51)
[2017-09-06] MEDS: MULTIVITAMINS TAB PO SCH (09:53)
[2017-09-06] MEDS: BETA-CAROTENE(A) & E/MIN TAB PO SCH ×2 (09:53→20:12)
[2017-09-06] MEDS: DOCUSATE SODIUM 100 MG CAP PO SCH (09:53)
[2017-09-06] MEDS: PANTOPRAZOLE SOD 40 MG TABEC PO SCH (09:54)
[2017-09-06] MEDS: ENOXAPARIN 40 MG/0.4ML SYR SC SCH (09:58)
[2017-09-06 11:55] VITALS: BP 153/79
[2017-09-06] MEDS: ACETAMINOPHEN 325 MG TAB PO PRN (13:08)
[2017-09-06 20:07] VITALS: BP 143/110
[2017-09-06] MEDS: MELATONIN 3 MG TAB PO SCH (20:12)
[2017-09-07 05:37] VITALS: BP 116/53
[2017-09-07] MEDS: LEVOTHYROXINE SOD 0.075 MG TAB PO SCH (06:00)
[2017-09-07] MEDS ORDERED: LEVO75TA68 PO (08:50)
--- NOTE | 2017-09-07 08:53 | Hospitalist Depart ---
Discharge Summary Reason for Hosp/Final Diag: (1) Multifocal pneumonia Status: Acute Hospital Course & Plan: She was previously admitted for pneumonia and was treated with IV antibiotics and later converted to oral cefdinir. She has now completed a full course of treatment. She remains afebrile and her WBC is normal. Her sputum culture from the last admission showed Streptococcus pneumoniae. Her CT from this visit continued to show right sided infiltrates. It may, however, take up to 6 weeks to resolve radiographic evidence of her pneumonia. (2) Hypoxia Status: Chronic Hospital Course & Plan: She has had hypoxia since her last admission. She will not wear a nasal cannula or mask. Blow by oxygen can be affective if placed appropriately. At this point, it appears her pneumonia has resolved/is resolving and is related more to her sleeping. She very well could have sleep apnea and should have a formal sleep study if she has not already done so. (3) Down's syndrome Status: Chronic Hospital Course & Plan: She has resided at the [facility] (4) Hypothyroidism Status: Chronic Hospital Course & Plan: She is on chronic treatment with Synthroid, but her TSH was elevated during this admission. Her dose has been increased. She will require a repeat TSH in 4-6 weeks. Departure Latest Vital Signs Vital Signs 09/06/17 09/07/17 09/07/17 03:22 05:37 07:26 Temp 97.8 Pulse 85 Resp 14 B/P (MAP) 116/53 (74) Pulse Ox 91 O2 Delivery Room Air O2 Flow Rate 5.0 Weight (Pounds): 154 Weight (Ounces): 16.0 Result Diagram: 09/03/17 0600 09/03/17 06 Condition: Improved Discharge: Home, Home Health PT/OT Follow Up For: PT For Strengthening Home Health RN Follow Up For: Medication Management, Cardiac Assessment, Nursing Assessment Discharge Code Status: DNR, DNI Discharge Instructions Home Meds Active Scripts Levothyroxine Sodium (SYNTHROID) 75 Mcg Tablet, 0.075 MG PO QDAY@06, #30 TAB Prov:MARGARITAROBERT 09/07/17 Reported Medications Fluoxetine Hcl (FLUOXETINE HCL) 10 Mg Capsule, 30 MG PO QDAY, CAPSULE 09/02/17 Acetaminophen (TYLENOL) 325 Mg Tablet, 650 MG PO BID, TAB 09/02/17 Melatonin (MELATONIN) 10 Mg Capsule, 1 TAB PO QHS 09/02/17 Parab/Cet Alc/Stryl Alc/Pg/Sls (CETAPHIL DAILY FACIAL CLEANSER) 473 Ml Cleanser , 1 ROB TP DAILY 08/24/17 Sodium Fluoride (PREVIDENT 5000 PLUS) 51 Gm Cream..g., 1 ROB DT BID 08/24/17 Gly/Dimeth/Petrolat,Wht/Water (CETAPHIL MOISTURIZING CREAM) 85 Gm Cream..g., 1 ROB TP BID 08/24/17 Vit A/Vit C/Vit E/Zinc/Copper (PRESERVISION AREDS SOFTGEL) 1 Each Capsule, 1 EACH PO BID, CAPSULE 08/23/17 Multivitamin (MULTIVITAMINS) 1 Each Capsule, 1 EACH PO QDAY, CAPSULE 08/23/17 Eyelid Cleanser Combination #5 (OCUSOFT LID SCRUB) 1 Each Med..pad, 1 EACH TP QDAY 08/23/17 Fluticasone/Vilanterol 100/25 Mcg/Inh (BREO ELLIPTA 100/25 MCG) 1 Each Aer.pow.ba, 1 INH INH QDAY, INH 08/23/17 Polyvinyl Alcohol/Povidone/Pf (REFRESH CLASSIC EYE DROPS) 1 Each Droperette, 1 DROP OP 6 times a day 08/23/17 Petrolatum,White (AQUAPHOR) 99 Gm Oint...g., 99 GM TP QDAY 08/23/17 Talc/Cellulos/Chloroxy/Aldioxa (ZEASORB POWDER) 71 Gm Powder, 71 GM TP BID 08/23/17 Lamotrigine (LAMOTRIGINE) 200 Mg Tab.er.24, 200 MG PO QDAY 08/23/17 Discontinued Reported Medications Levothyroxine Sodium (LEVOTHYROXINE SODIUM) 50 Mcg Tablet, 50 MCG PO QDAY, TAB 08/23/17 Melatonin (MELATONIN) 5 Mg Tab.rapdis, 5 MG PO QHS 08/23/17 Fluoxetine Hcl (FLUOXETINE HCL) 20 Mg Capsule, 30 MG PO QDAY, CAPSULE 08/23/17 Acetaminophen (TYLENOL) 325 Mg Tablet, 650 MG PO BID, TAB 08/23/17 Chlorhexidine Gluconate (HIBICLENS) 118 Ml Liquid, 118 ML TP QDAY 08/23/17 Discontinued Scripts Cefdinir 300 Mg Cap (OMNICEF 300 MG CAP (OR EQUIV)) 300 Mg Cap, 300 MG PO BID for 2 Days, #4 CAP Prov:NICKIE CARMONA MD 08/30/17 Diet: Regular Activity: As Tolerated Venous Thromboembolism Antithrombotics Is Pt On Any Antithrombotics?: No [id number] Certification Face to Face Home Health Certification Institutional Provider conducted the [id number] encounter. Electronic Undersigning Physician Certifies Home Health. I certify that the patient has been under my care and that I had a [id number] encounter that meets the physician [id number] encounter requirements with this patient. This patient is home-bound due to safety issues and continues to require assistance with ADL's. I certify that based on my findings, that Nursing, Aides and the following Home Health services are medically necessary: Medical Necessity: Nursing, Rehab Date Face to Face Conducted: Sep 07, 2017 ROBERT AVILA DO Sep 07, 2017 08:53
[2017-09-07] MEDS: DOCUSATE SODIUM 100 MG CAP PO SCH (09:37)
[2017-09-07] MEDS: MULTIVITAMINS TAB PO SCH (09:37)
[2017-09-07] MEDS: PANTOPRAZOLE SOD 40 MG TABEC PO SCH (09:37)
[2017-09-07] MEDS: FLUoxetine HCL 10 MG CAP PO SCH (09:38)
[2017-09-07] MEDS: BETA-CAROTENE(A) & E/MIN TAB PO SCH (09:38)
[2017-09-07] MEDS: lamoTRIgine 100 MG TAB PO SCH (09:38)
[2017-09-07] MEDS: PATIENT'S OWN MED TP SCH (09:38)
[2017-09-07] MEDS: ENOXAPARIN 40 MG/0.4ML SYR SC SCH (09:39)
== END 2017-09-07 10:20 | disposition home health service (06) | DRG 195 ==
LOC: ER 11:26 → MED 15:38
PROVIDERS: ADMIT Specialist; ATTEND Specialist
DX: J18.9 Pneumonia, unspecified organism (principal); Q90.9 Down syndrome, unspecified; Z66 Do not resuscitate; K21.9 Gastro-esophageal reflux disease without esophagitis; M19.90 Unspecified osteoarthritis, unspecified site; E03.9 Hypothyroidism, unspecified; J45.909 Unspecified asthma, uncomplicated; R09.02 Hypoxemia; Z79.899 Other long term (current) drug therapy; Z86.718 Personal history of other venous thrombosis and embolism
CPT/HCPCS: 36415; 71046; 71275; 81001; 82040; 82247; 82310; 82374; 82435; 82565; 82947; 83880; 84075; 84132; 84155; 84295; 84443; 84450; 84460; 84484; 84520; 85025; 87088; 93005; 96360; 96372; 99285; J0456; J0696; J1650; J7030; J7050; Q9967

== ENCOUNTER → 2017-09-02 | Outpatient (CLI) | payer MEDICARE, MEDICAID ==
[2017-09-03 08:54] VITALS: BMI 36.1
== END ==
LOC: AMB 10:58
PROVIDERS: ATTEND Nurse Practitioner
DX: R06.03 Acute respiratory distress (principal); Q90.9 Down syndrome, unspecified
CPT/HCPCS: A0425; A0427

== ENCOUNTER → 2017-10-07 | Outpatient (CLI) | payer MEDICARE, MEDICAID ==
[2017-09-03 08:54] VITALS: BMI 36.1
[~2017-10-07] MED LIST changes: +FLUO-176 PO; +MELA10CA PO
--- NOTE | 2017-10-07 16:50 | RADIOLOGY IMAGING REPORT ---
FACILITY: [facility] PATIENT NAME: Keerthi Melendez : 1960 MR: [id number] V: [id number] EXAM DATE: ORDERING PHYSICIAN: ROBERT FARIAS TECHNOLOGIST: [place] [facility] [place] Keerthi Mel[place] : 1960 Visit/Account:[id number] Date of Sevice: 10/07/2017 Exam type: VENOUS DOPP LOW LEFT EXTREMITY History: Left leg swelling, history of blood clot in the right leg Comparison: None. Findings: The left lower extremity veins were imaged including the left common femoral vein, greater saphenous vein, superficial femoral vein, popliteal vein, posterior tibial vein, and peroneal vein revealing no evidence of intraluminal thrombi. The veins were compressible and demonstrated augmentation. There was soft tissue edema and noted about the left calf. Several left inguinal lymph nodes are present that appear fatty replaced IMPRESSION: 1. No sonographic evidence DVT involving the left lower extremity veins Report Dictated By: Daisy Espinal MD at 10/07/2017 4:43 PM Report E-Signed By: Daisy Espinal MD at 10/07/2017 4:45 PM WSN:[id number]
== END ==
LOC: US 13:31
PROVIDERS: ATTEND Family Medicine
DX: R22.42 Localized swelling, mass and lump, left lower limb (principal)

== ENCOUNTER 2017-11-23 22:52 | Emergency (ER) | payer MEDICARE, MEDICAID ==
[2017-09-03 08:54] VITALS: Wt 63.5 kg
[2017-11-23 23:02] VITALS: BP 136/78
--- NOTE | 2017-11-23 23:04 | ER Report ---
History and Physical Time Seen By MD: 22:59 Hx. of Stated Complaint: PT FELL TONIGHT FROM STANDING. HAS CUT ON LIP AND HURT LEFT ANKLE. HPI/ROS CHIEF COMPLAINT: fall, ankle pain, cut on lip HISTORY OF PRESENT ILLNESS: This is a 57 year old female. She is an [facility] patient with a congenital disability. She fell today and has pain in her left ankle and some cuts and abrasions on both upper and lower lips. Unable to get further information from the patient at this time because of her disability. The caregivers that are present were not at the injury so cannot provide the details. Allergies: Uncoded Allergies: perfume (Allergy, Unknown, 02/01/14) skin sensitive to perfumed soaps and deodorants SOAP (Adverse Reaction, Unknown, 02/01/14) Home Meds Active Scripts Amoxicillin (AMOXICILLIN) 500 Mg Capsule, 1 CAP PO Q8H, #15 CAPSULE 0 Refills Prov:YANIRA BUNN MD 11/23/17 Levothyroxine Sodium (SYNTHROID) 75 Mcg Tablet, 0.075 MG PO QDAY@06, #30 TAB Prov:ROBERT AVILA DO 09/07/17 Reported Medications Fluoxetine Hcl (FLUOXETINE HCL) 10 Mg Capsule, 30 MG PO QDAY, CAPSULE 09/02/17 Acetaminophen (TYLENOL) 325 Mg Tablet, 650 MG PO BID, TAB 09/02/17 Melatonin (MELATONIN) 10 Mg Capsule, 1 TAB PO QHS 09/02/17 Parab/Cet Alc/Stryl Alc/Pg/Sls (CETAPHIL DAILY FACIAL CLEANSER) 473 Ml Cleanser , 1 ROB TP DAILY 08/24/17 Sodium Fluoride (PREVIDENT 5000 PLUS) 51 Gm Cream..g., 1 ROB DT BID 08/24/17 Gly/Dimeth/Petrolat,Wht/Water (CETAPHIL MOISTURIZING CREAM) 85 Gm Cream..g., 1 ROB TP BID 08/24/17 Vit A/Vit C/Vit E/Zinc/Copper (PRESERVISION AREDS SOFTGEL) 1 Each Capsule, 1 EACH PO BID, CAPSULE 08/23/17 Multivitamin (MULTIVITAMINS) 1 Each Capsule, 1 EACH PO QDAY, CAPSULE 08/23/17 Eyelid Cleanser Combination #5 (OCUSOFT LID SCRUB) 1 Each Med..pad, 1 EACH TP QDAY 08/23/17 Fluticasone/Vilanterol 100/25 Mcg/Inh (BREO ELLIPTA 100/25 MCG) 1 Each Aer.pow.ba, 1 INH INH QDAY, INH 08/23/17 Polyvinyl Alcohol/Povidone/Pf (REFRESH CLASSIC EYE DROPS) 1 Each Droperette, 1 DROP OP 6 times a day 08/23/17 Petrolatum,White (AQUAPHOR) 99 Gm Oint...g., 99 GM TP QDAY 08/23/17 Talc/Cellulos/Chloroxy/Aldioxa (ZEASORB POWDER) 71 Gm Powder, 71 GM TP BID 08/23/17 Lamotrigine (LAMOTRIGINE) 200 Mg Tab.er.24, 200 MG PO QDAY 08/23/17 Reviewed Nurses Notes: Yes Hx Smoking: No Smoking Status: Never Smoker Exposure to Second Hand Smoke?: No Hx Substance Use Disorder: No Hx Alcohol Use: No Constitutional Vital Sign - Last 24 Hours 11/23/17 11/23/17 11/24/17 23:02 23:02 00:00 Temp 97.4 Pulse 53 58 Resp 14 14 B/P (MAP) 136/78 136/78 (97) Pulse Ox 94 96 O2 Delivery Room Air Room Air Physical Exam General: Alert, anxious and difficult to get a good exam because of this. ENT: lips have lacerations, clotted blood, not gaping. No through and through. Some swelling and bruising associated. Musculoskeletal: Tender in the ankle, unable to pinpoint where, patient very anxious. Difficult to even get two views x-rayed. Skin: No breakdown noted on ankle. Pulses: Normal color and appears appropriate cap refill. Neuro: pain present but otherwise unable to tell sensation. Medical Decision Making EKG/Imaging Imaging ANKLE 2 VIEW LEFT HISTORY: Fall. Left ankle pain. COMPARISON: None. TECHNIQUE: AP and crosstable lateral views of the left ankle. Patient did not want to take any more images. FINDINGS: There is no fracture or dislocation. There is a plantar calcaneal spur. There is diffuse lower extremity edema. There is degenerative change of the first tarsometatarsal joint. IMPRESSION: 1. Diffuse lower extremity edema, but no acute osseous abnormality of the left ankle. Report Dictated By: Elsa Khalil at 11/23/2017 11:36 PM ED Course/Re-evaluation ED Course Reviewed plan with the caregivers and talked to the patient. Conservative measures for sprain. No closure recommended for the lacerations. Without specific details about the cuts, we will start Amoxicillin 500mg capsules 3 times a day for 5 days. Decision to Disposition Date: Nov 23, 2017 Decision to Disposition Time: 23:55 Depart Departure Latest Vital Signs Vital Signs Date Time Temp Pulse Resp B/P (MAP) Pulse Ox O2 Delivery O2 Flow Rate FiO2 11/24/17 00:00 58 14 96 Room Air 11/23/17 23:02 136/78 (97) 11/23/17 23:02 97.4 Impression: Primary Impression: Left ankle sprain Additional Impression: Lip laceration Condition: Improved Disposition: HOME OR SELF-CARE New Scripts Amoxicillin (AMOXICILLIN) 500 Mg Capsule 1 CAP PO Q8H, #15 CAPSULE 0 Refills Prov: YANIRA BUNN MD 11/23/17 Patient Instructions: Ankle Sprain (ED), Laceration Without Closure (ED) Additional Instructions: Ibuprofen 200mg over the counter tablets, three times a day with food. Apply ice 20 minutes every 1-2 hours while awake. Rest the injured area, keep it elevated while at rest. Begin gentle range of motion exercises. Recommended against closing the lip laceration as it does not seem like it would improve the outcome or help it heal any better. I would like to have the patient take amoxicillin 500 mg capsules, one capsule 3 times a day for 5 days. Problem Qualifiers Primary Impression: Left ankle sprain Encounter type: initial encounter Involved ligament of ankle: unspecified ligament Qualified Codes: S93.402A - Sprain of unspecified ligament of left ankle, initial encounter Additional Impression: Lip laceration Encounter type: initial encounter Qualified Codes: S01.511A - Laceration without foreign body of lip, initial encounter YANIRA BUNN MD Nov 23, 2017 23:04
--- NOTE | 2017-11-23 23:44 | RADIOLOGY IMAGING REPORT ---
FACILITY: [facility] PATIENT NAME: Keerthi Melendez : 1960 MR: [id number] V: [id number] EXAM DATE: ORDERING PHYSICIAN: YANIRA BUNN TECHNOLOGIST: Location: [facility] Patient: Keerthi Melendez : 1960 Visit/Account:[id number] Date of Sevice: 11/23/2017 ANKLE 2 VIEW LEFT HISTORY: Fall. Left ankle pain. COMPARISON: None. TECHNIQUE: AP and crosstable lateral views of the left ankle. Patient did not want to take any more i mages. FINDINGS: There is no fracture or dislocation. There is a plantar calcaneal spur. There is diffuse lo wer extremity edema. There is degenerative change of the first tarsometatarsal joint. IMPRESSION: 1. Diffuse lower extremity edema, but no acute osseous abnormality of the left ankle. Report Dictated By: Elsa Khalil at 11/23/2017 11:36 PM Report E-Signed By: Elsa Khalil at 11/23/2017 11:40 PM WSN:[id number]
[2017-11-23] MEDS ORDERED: AMOX-362 PO (23:58)
== END 2017-11-24 00:07 | disposition home or self-care (01) ==
LOC: ER 23:18
DX: S93.402A Sprain of unspecified ligament of left ankle, initial encounter (principal); S01.511A Laceration without foreign body of lip, initial encounter; W18.30XA Fall on same level, unspecified, initial encounter
CPT/HCPCS: 99282

== ENCOUNTER 2017-12-06 16:11 | Emergency (ER) | payer MEDICARE, MEDICAID ==
[2017-09-03 08:54] VITALS: BMI 36.1
[~2017-12-06 16:11] MED LIST changes: +AMOX-362 PO
[2017-12-06] MEDS ORDERED: TRAZ-156 PO (16:23)
[2017-12-06] MEDS ORDERED: FLUT1AER INH (16:23)
--- NOTE | 2017-12-06 16:40 | ER Report ---
History and Physical Time Seen By MD: 16:17 Hx. of Stated Complaint: Care provider concerned for home temperature and oxygenation status. Also stating patient seems shaky and weak. HPI/ROS CHIEF COMPLAINT: low temperature on reading at home. HISTORY OF PRESENT ILLNESS: This is a 57 year old female. She has Down syndrome and is a resident at the [facility]. She had a low temperature, oxygen saturation and seemed weak and shaky. Normal vital here. She does have a left lower leg that seems a little swollen, is red and warm. Concern for possible blood clots. Had a laceration to her upper lip recently, which the other day, her dentist thought that while this is healing, it was looking a little red and could be getting infected. Caregiver says that it is looking better today. No other problems noted. REVIEW OF SYSTEMS: Unable to obtain from the patient given her congenital problems and limited communication. Allergies: Uncoded Allergies: perfume (Allergy, Unknown, 02/01/14) skin sensitive to perfumed soaps and deodorants SOAP (Adverse Reaction, Unknown, 02/01/14) Home Meds Active Scripts Cefdinir 300 Mg Cap (OMNICEF 300 MG CAP (OR EQUIV)) 300 Mg Cap, 300 MG PO BID, # 12 CAP 0 Refills Prov:YANIRA BUNN MD 12/06/17 Levothyroxine Sodium (SYNTHROID) 75 Mcg Tablet, 0.075 MG PO QDAY@06, #30 TAB Prov:ROBERT AVILA DO 09/07/17 Reported Medications Trazodone Hcl (TRAZODONE HCL) 50 Mg Tablet, 50 MG PO QHS 12/06/17 Fluticasone/Vilanterol 100/25 Mcg/Inh (BREO ELLIPTA 100/25 MCG) 1 Each Aer.pow.ba, 1 INH INH QDAY, INH 12/06/17 Fluoxetine Hcl (FLUOXETINE HCL) 10 Mg Capsule, 30 MG PO QDAY, CAPSULE 09/02/17 Acetaminophen (TYLENOL) 325 Mg Tablet, 650 MG PO BID, TAB 09/02/17 Melatonin (MELATONIN) 10 Mg Capsule, 1 TAB PO QHS 09/02/17 Parab/Cet Alc/Stryl Alc/Pg/Sls (CETAPHIL DAILY FACIAL CLEANSER) 473 Ml Cleanser , 1 ROB TP DAILY 08/24/17 Sodium Fluoride (PREVIDENT 5000 PLUS) 51 Gm Cream..g., 1 ROB DT BID 08/24/17 Gly/Dimeth/Petrolat,Wht/Water (CETAPHIL MOISTURIZING CREAM) 85 Gm Cream..g., 1 ROB TP BID 08/24/17 Vit A/Vit C/Vit E/Zinc/Copper (PRESERVISION AREDS SOFTGEL) 1 Each Capsule, 1 EACH PO BID, CAPSULE 08/23/17 Multivitamin (MULTIVITAMINS) 1 Each Capsule, 1 EACH PO QDAY, CAPSULE 08/23/17 Eyelid Cleanser Combination #5 (OCUSOFT LID SCRUB) 1 Each Med..pad, 1 EACH TP QDAY 08/23/17 Fluticasone/Vilanterol 100/25 Mcg/Inh (BREO ELLIPTA 100/25 MCG) 1 Each Aer.pow.ba, 1 INH INH QDAY, INH 08/23/17 Polyvinyl Alcohol/Povidone/Pf (REFRESH CLASSIC EYE DROPS) 1 Each Droperette, 1 DROP OP 6 times a day 08/23/17 Petrolatum,White (AQUAPHOR) 99 Gm Oint...g., 99 GM TP QDAY 08/23/17 Talc/Cellulos/Chloroxy/Aldioxa (ZEASORB POWDER) 71 Gm Powder, 71 GM TP BID 08/23/17 Lamotrigine (LAMOTRIGINE) 200 Mg Tab.er.24, 200 MG PO QDAY 08/23/17 Discontinued Scripts Cefdinir 300 Mg Cap (OMNICEF 300 MG CAP (OR EQUIV)) 300 Mg Cap, 300 MG PO BID, # 12 CAP 0 Refills Prov:YANIRA BUNN MD 12/06/17 Amoxicillin (AMOXICILLIN) 500 Mg Capsule, 1 CAP PO Q8H, #15 CAPSULE 0 Refills Prov:YANIRA BUNN MD 11/23/17 Reviewed Nurses Notes: Yes Hx Smoking: No Smoking Status: Never Smoker Exposure to Second Hand Smoke?: No Hx Substance Use Disorder: No Hx Alcohol Use: No Constitutional Vital Sign - Last 24 Hours 12/06/17 12/06/17 12/06/17 12/06/17 16:20 16:26 16:26 16:30 Temp 97.7 Pulse 70 Resp 20 B/P (MAP) 141/101 (114) 141/101 126/66 (86) Pulse Ox 94 95 O2 Delivery Room Air 12/06/17 12/06/17 12/06/17 12/06/17 16:41 16:56 17:00 17:05 Pulse 61 65 57 B/P (MAP) 122/66 (84) Pulse Ox 99 91 95 12/06/17 12/06/17 12/06/17 12/06/17 17:25 17:30 17:35 17:50 Temp 97.5 Pulse 64 71 B/P (MAP) 124/59 (80) Pulse Ox 95 98 12/06/17 12/06/17 12/06/17 12/06/17 18:00 18:05 18:10 18:40 Pulse 64 70 65 B/P (MAP) 152/109 (123) Pulse Ox 95 95 91 12/06/17 12/06/17 12/06/17 12/06/17 18:45 18:57 19:00 19:03 Temp 96.9 Pulse 68 70 B/P (MAP) 115/73 (87) Pulse Ox 90 97 12/06/17 19:06 Temp 97.5 Physical Exam General Appearance: The patient is alert. No acute distress. Eyes: Pupils are equal, round. No pallor, injection or icterus. ENT: Mucous membranes are moist. Normal oral mucosa. Posterior oropharynx is normal. Lip laceration seems to be healing well. No erythema or drainage. Respiratory: Lungs are clear to auscultation. Cardiovascular: Regular rate and rhythm. No murmurs, gallops or rubs. Normal capillary refill. No edema. Gastrointestinal: Abdomen is soft and non tender. Nondistended. Normal active bowel sounds. Neurological: Alert, interacts normally based on my previous interactions with her. Skin: Warm and dry. The left leg is a little warmer that the right. No major swelling, but very slight. Slightly more red than the right as well. No pain with palpation detected. DIFFERENTIAL DIAGNOSIS: After history and physical exam, differential diagnosis was considered for patient with Down syndrome, concern for a vital sign abnormality but everything seems normal here. No other signs of illness other than the red and warm leg which could be DVT versus cellulitis. Medical Decision Making Data Points Result Diagram: 12/06/17 1723 12/06/17 1723 Laboratory Hematology Test 12/06/17 17:23 Red Blood Count 4.19 M/uL (4.17-5.56) Mean Corpuscular Volume 102.0 fL (80.0-96.0) Mean Corpuscular Hemoglobin 35.2 pg (26.0-33.0) Mean Corpuscular Hemoglobin Concent 34.5 g/dL (32.0-36.0) Red Cell Distribution Width 14.1 % (11.5-14.5) Mean Platelet Volume 7.5 fL (7.2-11.1) Neutrophils (%) (Auto) 60.2 % (39.4-72.5) Lymphocytes (%) (Auto) 23.6 % (17.6-49.6) Monocytes (%) (Auto) 10.0 % (4.1-12.4) Eosinophils (%) (Auto) 4.7 % (0.4-6.7) Basophils (%) (Auto) 1.5 % (0.3-1.4) Nucleated RBC Relative Count (auto) 0.0 /100WBC Neutrophils # (Auto) 1.9 K/uL (2.0-7.4) Lymphocytes # (Auto) 0.7 K/uL (1.3-3.6) Monocytes # (Auto) 0.3 K/uL (0.3-1.0) Eosinophils # (Auto) 0.1 K/uL (0.0-0.5) Basophils # (Auto) 0.0 K/uL (0.0-0.1) Nucleated RBC Absolute Count (auto) 0.00 K/uL Peripheral Blood Smear Y/N Sodium Level 142 mmol/L (137-145) Potassium Level 3.9 mmol/L (3.5-5.0) Chloride Level 102 mmol/L (98-107) Carbon Dioxide Level 30 mmol/L (22-31) Blood Urea Nitrogen 19 mg/dl (7-18) Creatinine 0.90 mg/dl (0.52-1.04) Glomerular Filtration Rate Calc > 60.0 Random Glucose 86 mg/dl (75-110) Calcium Level 9.2 mg/dl (8.4-10.2) Total Bilirubin 0.4 mg/dl (0.2-1.3) Aspartate Amino Transf (AST/SGOT) 48 U/L (0-35) Alanine Aminotransferase (ALT/SGPT) 35 U/L (0-56) Alkaline Phosphatase 114 U/L (0-126) Total Protein 7.6 gm/dl (6.3-8.2) Albumin 3.8 g/dl (3.5-5.0) Chemistry Test 12/06/17 17:23 White Blood Count 3.1 k/uL (4.5-11.0) Red Blood Count 4.19 M/uL (4.17-5.56) Hemoglobin 14.7 g/dL (12.0-16.0) Hematocrit 42.7 % (34.0-47.0) Mean Corpuscular Volume 102.0 fL (80.0-96.0) Mean Corpuscular Hemoglobin 35.2 pg (26.0-33.0) Mean Corpuscular Hemoglobin Concent 34.5 g/dL (32.0-36.0) Red Cell Distribution Width 14.1 % (11.5-14.5) Platelet Count 235 K/uL (150-450) Mean Platelet Volume 7.5 fL (7.2-11.1) Neutrophils (%) (Auto) 60.2 % (39.4-72.5) Lymphocytes (%) (Auto) 23.6 % (17.6-49.6) Monocytes (%) (Auto) 10.0 % (4.1-12.4) Eosinophils (%) (Auto) 4.7 % (0.4-6.7) Basophils (%) (Auto) 1.5 % (0.3-1.4) Nucleated RBC Relative Count (auto) 0.0 /100WBC Neutrophils # (Auto) 1.9 K/uL (2.0-7.4) Lymphocytes # (Auto) 0.7 K/uL (1.3-3.6) Monocytes # (Auto) 0.3 K/uL (0.3-1.0) Eosinophils # (Auto) 0.1 K/uL (0.0-0.5) Basophils # (Auto) 0.0 K/uL (0.0-0.1) Nucleated RBC Absolute Count (auto) 0.00 K/uL Peripheral Blood Smear Y/N Glomerular Filtration Rate Calc > 60.0 Calcium Level 9.2 mg/dl (8.4-10.2) Total Bilirubin 0.4 mg/dl (0.2-1.3) Aspartate Amino Transf (AST/SGOT) 48 U/L (0-35) Alanine Aminotransferase (ALT/SGPT) 35 U/L (0-56) Alkaline Phosphatase 114 U/L (0-126) Total Protein 7.6 gm/dl (6.3-8.2) Albumin 3.8 g/dl (3.5-5.0) EKG/Imaging Imaging EXAMINATION: VENOUS DOPP LOW LEFT EXTREMITY COMPARISON: 10/07/2017 HISTORY: swelling and warmth of leg FINDINGS: Standard left lower extremity Doppler ultrasound with color flow and spectral analysis is performed. The common femoral, femoral, and popliteal veins are widely patent and compress appropriately. The visualized calf veins and the proximal greater saphenous vein are patent. No popliteal fluid collection. The contralateral common femoral vein is patent. IMPRESSION: No left lower extremity deep venous thrombosis. Report Dictated By: Mariano Thompson MD at 12/06/2017 6:27 PM ED Course/Re-evaluation ED Course Negative DVT studies. Will treat for cellulitis. See instructions below. Decision to Disposition Date: December 06, 2017 Decision to Disposition Time: 18:45 Depart Departure Latest Vital Signs Vital Signs Date Time Temp Pulse Resp B/P (MAP) Pulse Ox O2 Delivery O2 Flow Rate FiO2 12/06/17 19:06 97.5 12/06/17 19:00 70 97 12/06/17 18:57 115/73 (87) 12/06/17 16:26 20 Room Air Impression: Primary Impression: Cellulitis and abscess of left leg Condition: Improved Disposition: HOME OR SELF-CARE New Scripts Cefdinir 300 Mg Cap (OMNICEF 300 MG CAP (OR EQUIV)) 300 Mg Cap 300 MG PO BID, #12 CAP 0 Refills Prov: YANIRA BUNN MD 12/06/17 Patient Instructions: Cellulitis (ED) Additional Instructions: The warmth and redness in your leg appears to be due to a skin infection. Take Cefdinir 300mg twice a day for 7 days. YANIRA BUNN MD December 06, 2017 16:40
[2017-12-06 17:31] LABS: PLATELET COUNT, AUTOMATED 235 K/uL (150-450)
--- NOTE | 2017-12-06 18:36 | RADIOLOGY IMAGING REPORT ---
FACILITY: [facility] PATIENT NAME: Keerthi Melendez : 1960 MR: [id number] V: [id number] EXAM DATE: ORDERING PHYSICIAN: YANIRA BUNN TECHNOLOGIST: Location: [facility] Patient: Keerthi Melendez : 1960 Visit/Account:[id number] Date of Sevice: 12/06/2017 EXAMINATION: VENOUS DOPP LOW LEFT EXTREMITY COMPARISON: 10/07/2017 HISTORY: swelling and warmth of leg FINDINGS: Standard left lower extremity Doppler ultrasound with color flow and spectral analysis is p erformed. The common femoral, femoral, and popliteal veins are widely patent and compress appropriately. The v isualized calf veins and the proximal greater saphenous vein are patent. No popliteal fluid collection. The contralateral common femoral vein is patent. IMPRESSION: No left lower extremity deep venous thrombosis. Report Dictated By: Mariano Thompson MD at 12/06/2017 6:27 PM Report E-Signed By: Mariano Thompson MD at 12/06/2017 6:32 PM WSN:[id number]
[2017-12-06] MEDS ORDERED: CEFDINIR 300 MG CAP PO ONE (18:45)
[2017-12-06] MEDS ORDERED: CEF300 PO ×2 (18:46→18:47)
[2017-12-06 18:57] VITALS: BP 115/73
== END 2017-12-06 19:05 | disposition home or self-care (01) ==
LOC: ER 16:24
DX: L03.116 Cellulitis of left lower limb (principal)
CPT/HCPCS: 36415; 85025; 93971; 99284; A9270; 82040; 82247; 82310; 82374; 82435; 82565; 82947; 84075; 84132; 84155; 84295; 84450; 84460; 84520

== ENCOUNTER 2017-12-08 22:51 | Emergency (ER) | payer MEDICARE, MEDICAID ==
[2017-09-03 08:54] VITALS: BMI 36.1
--- NOTE | 2017-12-08 23:02 | ER Report ---
History and Physical Time Seen By MD: 23:02 HPI/ROS CHIEF COMPLAINT: Leg pain HISTORY OF PRESENT ILLNESS: 57-year-old female with Down syndrome brought in by EMS from [facility] facility where she is a resident. She was seen here 2 days ago and 12/06/17 at [facility] was started on Omnicef for left leg swelling and redness thought to be early cellulitis. Patient's staff members from [facility] state the patient will not bear weight on her left lower extremity. We will of the shoe and sock shows edema, there is a pressure sore on the medial great toe, suggesting a bunion. Staff report that the patient sat on the couch for the last 8 hours. Her legs are edematous. I think her behavior REVIEW OF SYSTEMS: Respiratory: No cough, no dyspnea. Cardiovascular: No chest pain, no palpitations. Gastrointestinal: No vomiting, no abdominal pain. Musculoskeletal: No back pain. Allergies: Uncoded Allergies: perfume (Allergy, Unknown, 02/01/14) skin sensitive to perfumed soaps and deodorants SOAP (Adverse Reaction, Unknown, 02/01/14) Home Meds Active Scripts Cefdinir 300 Mg Cap (OMNICEF 300 MG CAP (OR EQUIV)) 300 Mg Cap, 300 MG PO BID, # 12 CAP 0 Refills Prov:YANIRA BUNN MD 12/06/17 Levothyroxine Sodium (SYNTHROID) 75 Mcg Tablet, 0.075 MG PO QDAY@06, #30 TAB Prov:ROBERT AVILA DO 09/07/17 Reported Medications Trazodone Hcl (TRAZODONE HCL) 50 Mg Tablet, 50 MG PO QHS 12/06/17 Fluticasone/Vilanterol 100/25 Mcg/Inh (BREO ELLIPTA 100/25 MCG) 1 Each Aer.pow.ba, 1 INH INH QDAY, INH 12/06/17 Fluoxetine Hcl (FLUOXETINE HCL) 10 Mg Capsule, 30 MG PO QDAY, CAPSULE 09/02/17 Acetaminophen (TYLENOL) 325 Mg Tablet, 650 MG PO BID, TAB 09/02/17 Melatonin (MELATONIN) 10 Mg Capsule, 1 TAB PO QHS 09/02/17 Parab/Cet Alc/Stryl Alc/Pg/Sls (CETAPHIL DAILY FACIAL CLEANSER) 473 Ml Cleanser , 1 ROB TP DAILY 08/24/17 Sodium Fluoride (PREVIDENT 5000 PLUS) 51 Gm Cream..g., 1 ROB DT BID 08/24/17 Gly/Dimeth/Petrolat,Wht/Water (CETAPHIL MOISTURIZING CREAM) 85 Gm Cream..g., 1 ROB TP BID 08/24/17 Vit A/Vit C/Vit E/Zinc/Copper (PRESERVISION AREDS SOFTGEL) 1 Each Capsule, 1 EACH PO BID, CAPSULE 08/23/17 Multivitamin (MULTIVITAMINS) 1 Each Capsule, 1 EACH PO QDAY, CAPSULE 08/23/17 Eyelid Cleanser Combination #5 (OCUSOFT LID SCRUB) 1 Each Med..pad, 1 EACH TP QDAY 08/23/17 Fluticasone/Vilanterol 100/25 Mcg/Inh (BREO ELLIPTA 100/25 MCG) 1 Each Aer.pow.ba, 1 INH INH QDAY, INH 08/23/17 Polyvinyl Alcohol/Povidone/Pf (REFRESH CLASSIC EYE DROPS) 1 Each Droperette, 1 DROP OP 6 times a day 08/23/17 Petrolatum,White (AQUAPHOR) 99 Gm Oint...g., 99 GM TP QDAY 08/23/17 Talc/Cellulos/Chloroxy/Aldioxa (ZEASORB POWDER) 71 Gm Powder, 71 GM TP BID 08/23/17 Lamotrigine (LAMOTRIGINE) 200 Mg Tab.er.24, 200 MG PO QDAY 08/23/17 Discontinued Scripts Cefdinir 300 Mg Cap (OMNICEF 300 MG CAP (OR EQUIV)) 300 Mg Cap, 300 MG PO BID, # 12 CAP 0 Refills Prov:YANIRA BUNN MD 12/06/17 Amoxicillin (AMOXICILLIN) 500 Mg Capsule, 1 CAP PO Q8H, #15 CAPSULE 0 Refills Prov:YANIRA BUNN MD 11/23/17 Past Medical/Surgical History Unable to obtain from the patient given her congenital problems and limited communication. Reviewed Nurses Notes: Yes Old Medical Records Reviewed: Yes Hx Smoking: No Smoking Status: Never Smoker Exposure to Second Hand Smoke?: No Hx Substance Use Disorder: No Hx Alcohol Use: No Constitutional Vital Sign - Last 24 Hours 12/08/17 12/09/17 23:00 00:20 Temp 97.5 Pulse 73 76 Resp 14 14 B/P (MAP) 91/62 94/55 (68) Pulse Ox 90 92 O2 Delivery Room Air Room Air Physical Exam General appearance: Alert no vital signs stable, afebrile, pulse ox normal Respiratory: Chest is non tender, lungs are clear to auscultation. Cardiac: Regular rate and rhythm Extremities: Examination of the bilateral lower extremity shows soccer edema bilaterally, 1+. He is no erythema. There is no obvious reproducible pain. Sensation appears intact. DIFFERENTIAL DIAGNOSIS: After history and physical exam differential diagnosis was considered for cellulitis, behavioral problem, Medical Decision Making EKG/Imaging Imaging X-ray: Left tib-fib was obtained. I viewed the images myself on the PACS system. My interpretation of the images is: No fracture no dislocation or malalignment, degenerative arthritis changes noted. The radiologist interpretation had no clinically significant variation from this interpretation. ED Course/Re-evaluation ED Course Patient was admitted to an examination room. H&P was done. The differential diagnosis was considered. On clinical examination. Patient complaining of bilateral leg pain. She was sitting on a couch for an extended period of time. She has bilateral lower extremity edema. Feet hurt and she is afraid to put weight on them. With her Down's syndrome, I think her pain is primarily behavioral. Patient was given Lasix 20 mg a single dose to help reduce her water load. Patient was given Tylenol for pain. X- rays of her legs were unremarkable for any occult fractures. Patient's cellulitis appears to be resolving. Orders for some activity for the patient were written to reduce and prevent edema. Decision to Disposition Date: December 08, 2017 Decision to Disposition Time: 23:50 Depart Departure Latest Vital Signs Vital Signs Date Time Temp Pulse Resp B/P (MAP) Pulse Ox O2 Delivery O2 Flow Rate FiO2 12/09/17 00:20 76 14 94/55 (68) 92 Room Air 12/08/17 23:00 97.5 Impression: Primary Impression: Dependent edema Additional Impressions: Leg pain, bilateral Cellulitis and abscess of left lower extremity Condition: Improved Disposition: HOME OR SELF-CARE Patient Instructions: Leg Edema (ED) Additional Instructions: Give Tylenol as needed for pain Put the feet and legs through gentle range of motion daily Follow-up with primary care if unimproved in 3-5 days Problem Qualifiers RADHA SNYDER DO December 08, 2017 23:02
[2017-12-08] MEDS ORDERED: ACETAMINOPHEN 325 MG TAB PO ONE (23:10)
[2017-12-08] MEDS ORDERED: FUROSEMIDE 20 MG TAB PO ONE (23:50)
--- NOTE | 2017-12-09 00:15 | RADIOLOGY IMAGING REPORT ---
FACILITY: [facility] [place] PATIENT NAME: Keerthi Melendez : 1960 MR: [id number] V: [id number] EXAM DATE: ORDERING PHYSICIAN: RADHA SNYDER TECHNOLOGIST: Location: [facility] [place] Patient: Keerthi Melendez : 1960 Visit/Account:[id number] Date of Sevice: 12/08/2017 INDICATION: Left leg pain. EXAM DATE: 12/08/2017 11:10 PM COMPARISON: Left ankle radiographs 11/19/2013. FINDINGS: 5 images of the left tibia and fibula. Evaluation of the distal aspect of the tibia and fibula on th e lateral view is limited due to overexposure. Mineralization is normal. No acute alignment abnormal ity or fracture. There is mild osteoarthrosis about the ankle. Mild medial compartment and moderate patellofemoral compartment osteoarthrosis at the knee. Soft tissues are unremarkable. IMPRESSION: Limited examination with osteoarthrosis of the left ankle and knee. No apparent acute o sseous abnormality of the tibia and fibula. Report Dictated By: Jean Betancourt MD at 12/09/2017 12:05 AM Report E-Signed By: Jean Betancourt MD at 12/09/2017 12:12 AM WSN:[id number]
[2017-12-09 00:20] VITALS: BP 94/55
== END 2017-12-09 00:29 | disposition home or self-care (01) ==
LOC: ER 23:03
DX: R60.9 Edema, unspecified (principal); M79.662 Pain in left lower leg; M79.661 Pain in right lower leg; L03.116 Cellulitis of left lower limb
CPT/HCPCS: 73590; 99283; A9270

== ENCOUNTER → 2017-12-08 | Outpatient (CLI) | payer MEDICARE, MEDICAID ==
[2017-09-03 08:54] VITALS: BMI 36.1
[~2017-12-08] MED LIST changes: +TRAZ-156 PO
== END ==
LOC: AMB 22:31
PROVIDERS: ATTEND Nurse Practitioner
DX: M79.662 Pain in left lower leg (principal); R60.0 Localized edema; Q90.9 Down syndrome, unspecified; F79 Unspecified intellectual disabilities
CPT/HCPCS: A0425; A0429

== ENCOUNTER → 2017-12-09 | Outpatient (CLI) | payer MEDICARE, MEDICAID ==
[2017-09-03 08:54] VITALS: BMI 36.1
== END ==
LOC: AMB 00:22
PROVIDERS: ATTEND Nurse Practitioner
DX: M79.662 Pain in left lower leg (principal); Q90.9 Down syndrome, unspecified; F79 Unspecified intellectual disabilities
CPT/HCPCS: A0425; A0428

== ENCOUNTER → 2018-01-24 | Outpatient (CLI) | payer MEDICARE, MEDICAID ==
[2017-09-03 08:54] VITALS: BMI 36.1
== END ==
LOC: MAMO 01:33
PROVIDERS: ATTEND Family Medicine
DX: Z02.9 Encounter for administrative examinations, unspecified (principal)

== ENCOUNTER 2018-05-23 16:50 | Emergency (ER) | payer MEDICARE, MEDICAID ==
[2017-09-03 08:54] VITALS: BMI 36.1
[~2018-05-23 16:50] MED LIST changes: -TRAZ-156 PO; +TRAZ50TA34 PO
--- NOTE | 2018-05-23 17:23 | ER Report ---
History and Physical Time Seen By MD: 17:23 Hx. of Stated Complaint: PATIENTS CAREGIVER REPORTS POSSIBLE BLOOD CLOT IN LEG HPI/ROS 57 year old arc patient with redness swelling lle noted today h/o dvt in the past on no blood thinners Allergies: Uncoded Allergies: perfume (Allergy, Unknown, 02/01/14) skin sensitive to perfumed soaps and deodorants SOAP (Adverse Reaction, Unknown, 02/01/14) Home Meds Active Scripts Doxycycline Calcium (VIBRAMYCIN) 50 Mg/5 Ml Syrup, 100 MG PO BID for 7 Days Prov:OSCAR DENT 05/23/18 Cefdinir 300 Mg Cap (OMNICEF 300 MG CAP (OR EQUIV)) 300 Mg Cap, 300 MG PO BID, #12 CAP 0 Refills Prov:YANIRA BUNN MD 12/06/17 Levothyroxine Sodium (SYNTHROID) 75 Mcg Tablet, 0.075 MG PO QDAY@06, #30 TAB Prov:ROBERT AVILA DO 09/07/17 Reported Medications Trazodone Hcl (TRAZODONE HCL) 50 Mg Tablet, 50 MG PO QHS 12/06/17 Fluticasone/Vilanterol 100/25 Mcg/Inh (BREO ELLIPTA 100/25 MCG) 1 Each Aer.pow.b a, 1 INH INH QDAY, INH 12/06/17 Fluoxetine Hcl (FLUOXETINE HCL) 10 Mg Capsule, 30 MG PO QDAY, CAPSULE 09/02/17 Acetaminophen (TYLENOL) 325 Mg Tablet, 650 MG PO BID, TAB 09/02/17 Melatonin (MELATONIN) 10 Mg Capsule, 1 TAB PO QHS 09/02/17 Parab/Cet Alc/Stryl Alc/Pg/Sls (CETAPHIL DAILY FACIAL CLEANSER) 473 Ml Cleanser, 1 ROB TP DAILY 08/24/17 Sodium Fluoride (PREVIDENT 5000 PLUS) 51 Gm Cream..g., 1 ROB DT BID 08/24/17 Gly/Dimeth/Petrolat,Wht/Water (CETAPHIL MOISTURIZING CREAM) 85 Gm Cream..g., 1 ROB TP BID 08/24/17 Vit A/Vit C/Vit E/Zinc/Copper (PRESERVISION AREDS SOFTGEL) 1 Each Capsule, 1 EACH PO BID, CAPSULE 08/23/17 Multivitamin (MULTIVITAMINS) 1 Each Capsule, 1 EACH PO QDAY, CAPSULE 08/23/17 Eyelid Cleanser Combination #5 (OCUSOFT LID SCRUB) 1 Each Med..pad, 1 EACH TP QDAY 08/23/17 Fluticasone/Vilanterol 100/25 Mcg/Inh (BREO ELLIPTA 100/25 MCG) 1 Each Aer.pow.ba, 1 INH INH QDAY, INH 08/23/17 Polyvinyl Alcohol/Povidone/Pf (REFRESH CLASSIC EYE DROPS) 1 Each Droperette, 1 DROP OP 6 times a day 08/23/17 Petrolatum,White (AQUAPHOR) 99 Gm Oint...g., 99 GM TP QDAY 08/23/17 Talc/Cellulos/Chloroxy/Aldioxa (ZEASORB POWDER) 71 Gm Powder, 71 GM TP BID 08/23/17 Lamotrigine (LAMOTRIGINE) 200 Mg Tab.er.24, 200 MG PO QDAY 08/23/17 Past Medical/Surgical History History of hypothyroidism, Down syndrome, seizures, heart murmur, DVT in the right leg 2017 Reviewed Nurses Notes: Yes Hx Smoking: No Smoking Status: Never Smoker Exposure to Second Hand Smoke?: No Hx Substance Use Disorder: No Hx Alcohol Use: No Physical Exam 57-year-old female patient is an arc patient she is in a wheelchair noted she is yelling and screaming in the emergency room she has 3 caregivers with her at this time I'm doesn't allow staff to touch her or examine her with staff's help she did let me examine her leg she has redness in her left lower extremity from her toes to her knees 2+ pulses distally cap refills 3 seconds leg is warm to touch Medical Decision Making ED Course/Re-evaluation ED Course Patient's ultrasound was read as negative caregiver stated with patient during he entire exam we will treat her with doxycycline 100 twice a day for left lower leg cellulitis have her followed closely with PCP Decision to Disposition Date: May 23, 2018 Decision to Disposition Time: 19:00 Depart Departure Impression: Primary Impression: Cellulitis Condition: Improved Disposition: HOME OR SELF-CARE New Scripts Doxycycline Calcium (VIBRAMYCIN) 50 Mg/5 Ml Syrup 100 MG PO BID for 7 Days Prov: OSCAR DENT 05/23/18 Patient Instructions: Cellulitis (ED) Additional Instructions: Follow-up with primary care physician within one week, doxycycline 100 mg 1 twice daily for 7 days OSCAR DENT May 23, 2018 17:23
[2018-05-23] MEDS ORDERED: fentaNYL CITR 100 MCG/2 ML AMP ONE (17:35)
[2018-05-23] MEDS ORDERED: DOXY50SY2 PO (18:39)
[2018-05-23] MEDS ORDERED: DOXYCYCLINE HYCL 100 MG TAB PO ONE (18:45)
--- NOTE | 2018-05-23 19:03 | RADIOLOGY IMAGING REPORT ---
FACILITY: [facility] PATIENT NAME: Keerthi Melendez : 1960 MR: [id number] V: [id number] EXAM DATE: ORDERING PHYSICIAN: LORRAINE JOHNSON TECHNOLOGIST: Location: [facility] Patient: Keerthi Melendez : 1960 Visit/Account:[id number] Date of Sevice: 05/23/2018 EXAMINATION: Bilateral lower extremity duplex venous ultrasound COMPARISON: None Available HISTORY: Bilateral lower extremity pain. FINDINGS: Standard bilateral lower extremity Doppler ultrasound with color flow and spectral analysis is performed. The bilateral common femoral, femoral, and popliteal veins are widely patent and compress appropriate ly. The visualized calf veins and the proximal greater saphenous vein are patent. No popliteal fluid collection. IMPRESSION: No evidence of deep venous thrombosis within either lower extremity. Report Dictated By: Mariano Thompson MD at 05/23/2018 6:58 PM Report E-Signed By: Mariano Thompson MD at 05/23/2018 6:59 PM WSN:[id number]
== END 2018-05-23 18:56 | disposition home or self-care (01) ==
LOC: ER 17:33
DX: L03.116 Cellulitis of left lower limb (principal)
CPT/HCPCS: 93970; 99284; A9270

== ENCOUNTER 2018-06-07 10:58 | Emergency (ER) | payer MEDICARE, MEDICAID ==
[2017-09-03 08:54] VITALS: Wt 64.0 kg
[~2018-06-07 10:58] MED LIST changes: +DOXY50SY2 PO
--- NOTE | 2018-06-07 11:08 | ER Report ---
History and Physical Time Seen By MD: 11:06 HPI/ROS CHIEF COMPLAINT: Medical evaluation HISTORY OF PRESENT ILLNESS: Patient is a 58-year-old female who is referred to the emergency Department from the [facility] for evaluation of bilateral leg swelling, decreased activity level Review the electronic medical record shows the patient has been seen as recently as 05/23/2018 for lower extremity edema and concerns of cellulitis. She was also seen on the and 06 of December. For similar problems. She had an ultrasound of the lower extremity on December 06 which was negative for DVT. She was seen again on the with concern for bilateral lower extremity swelling given Lasix or what was felt to be peripheral edema. I received a call from the [facility] today that they're concerned that the patient could "CHF". Due to decreased activity level. She is "crying all the time". She apparently is a patient who is usually uncooperative and combative with staff. He reports they will be giving 5 mg of Valium and 5 mg of Zyprexa prior to transport to the emergency department at this time. Patient does have a brother and sister who apparently live in town and are legal guardians. I have asked that staff bring all medical records any appropriate paperwork concerning power of real estate attorney and living will to the emergency department for review. [facility] staff informed me the patient is unable to make her own medical decisions due to her trisomy 21 and dementia. REVIEW OF SYSTEMS: Unable to obtain review of systems as patient is with dementia and Down syndrome and is noncommunicative with hospital staff. Allergies: Uncoded Allergies: perfume (Allergy, Unknown, 02/01/14) skin sensitive to perfumed soaps and deodorants SOAP (Adverse Reaction, Unknown, 02/01/14) Home Meds Active Scripts Nystatin 100,000 Unit/Gm Top Powder (NYSTATIN 100,000 UNIT/GM TOP POWDER) 15 Gm Powder, 15 GM TP BID, #1 TUBE 0 Refills Apply to left ingunial area twice per day as needed for fungal infection Prov:LIZZETTE ALCOCER MD 06/07/18 Doxycycline Calcium (VIBRAMYCIN) 50 Mg/5 Ml Syrup, 100 MG PO BID for 7 Days Prov:OSCAR DENT 05/23/18 Levothyroxine Sodium (SYNTHROID) 75 Mcg Tablet, 0.075 MG PO QDAY@06, #30 TAB Prov:ROBERT AVILA DO 09/07/17 Reported Medications Olanzapine (OLANZAPINE) 5 Mg Tablet, 5 MG PO QDAY 06/07/18 Duloxetine HCl (Duloxetine HCl) 60 Mg Capsule.dr, 30 QDAY 06/07/18 Diazepam (DIAZEPAM) 5 Mg Tablet, 5 MG PO 2-3XD, #15 TAB 06/07/18 Trazodone Hcl (TRAZODONE HCL) 50 Mg Tablet, 50 MG PO QHS 12/06/17 Fluticasone/Vilanterol 100/25 Mcg/Inh (BREO ELLIPTA 100/25 MCG) 1 Each Aer.pow.ba, 1 INH INH QDAY, INH 12/06/17 Fluoxetine Hcl (FLUOXETINE HCL) 10 Mg Capsule, 30 MG PO QDAY, CAPSULE 09/02/17 Acetaminophen (TYLENOL) 325 Mg Tablet, 650 MG PO BID, TAB 09/02/17 Melatonin (MELATONIN) 10 Mg Capsule, 1 TAB PO QHS 09/02/17 Parab/Cet Alc/Stryl Alc/Pg/Sls (CETAPHIL DAILY FACIAL CLEANSER) 473 Ml Cleanser, 1 ROB TP DAILY 08/24/17 Sodium Fluoride (PREVIDENT 5000 PLUS) 51 Gm Cream..g., 1 ROB DT BID 08/24/17 Gly/Dimeth/Petrolat,Wht/Water (CETAPHIL MOISTURIZING CREAM) 85 Gm Cream..g., 1 ROB TP BID 08/24/17 Vit A/Vit C/Vit E/Zinc/Copper (PRESERVISION AREDS SOFTGEL) 1 Each Capsule, 1 EACH PO BID, CAPSULE 08/23/17 Multivitamin (MULTIVITAMINS) 1 Each Capsule, 1 EACH PO QDAY, CAPSULE 08/23/17 Eyelid Cleanser Combination #5 (OCUSOFT LID SCRUB) 1 Each Med..pad, 1 EACH TP QDAY 08/23/17 Fluticasone/Vilanterol 100/25 Mcg/Inh (BREO ELLIPTA 100/25 MCG) 1 Each Aer.pow.ba, 1 INH INH QDAY, INH 08/23/17 Polyvinyl Alcohol/Povidone/Pf (REFRESH CLASSIC EYE DROPS) 1 Each Droperette, 1 DROP OP 6 times a day 08/23/17 Petrolatum,White (AQUAPHOR) 99 Gm Oint...g., 99 GM TP QDAY 08/23/17 Talc/Cellulos/Chloroxy/Aldioxa (ZEASORB POWDER) 71 Gm Powder, 71 GM TP BID 08/23/17 Lamotrigine (LAMOTRIGINE) 200 Mg Tab.er.24, 200 MG PO QDAY 08/23/17 Discontinued Scripts Cefdinir 300 Mg Cap (OMNICEF 300 MG CAP (OR EQUIV)) 300 Mg Cap, 300 MG PO BID, #12 CAP 0 Refills Prov:YANIRA BUNN MD 12/06/17 Past Medical/Surgical History Past medical history for trisomy 21, early dementia, history of seizure disorder, history of peripheral edema and cellulitis. Hx Smoking: No Smoking Status: Never Smoker Exposure to Second Hand Smoke?: No Hx Substance Use Disorder: No Hx Alcohol Use: No Constitutional Vital Sign - Last 24 Hours 06/07/18 06/07/18 06/07/18 06/07/18 11:06 11:43 11:44 11:58 Pulse ??? 54 Resp 16 12 B/P (MAP) 100/63 94/61 (72) Pulse Ox 89 O2 Delivery Room Air 06/07/18 06/07/18 06/07/18 06/07/18 12:00 12:13 12:15 12:28 Pulse 72 75 Resp 0 11 B/P (MAP) 96/76 (83) 147/68 (94) Pulse Ox 99 95 06/07/18 06/07/18 06/07/18 06/07/18 12:30 12:43 12:45 12:46 Pulse 58 Resp 7 B/P (MAP) 116/73 (87) 93/47 (62) Pulse Ox 97 O2 Flow Rate 2.0 06/07/18 06/07/18 06/07/18 06/07/18 12:50 13:00 13:05 13:14 Pulse 57 49 Resp 7 8 B/P (MAP) 69/32 (44) 64/24 (37) Pulse Ox 100 96 06/07/18 06/07/18 06/07/18 06/07/18 13:20 13:30 13:35 13:40 Pulse 50 47 Resp 9 8 B/P (MAP) 106/48 (67) 81/39 (53) 82/44 (57) Pulse Ox 95 95 06/07/18 06/07/18 06/07/18 06/07/18 13:50 14:00 14:05 14:10 Pulse 46 47 Resp 8 8 B/P (MAP) 83/56 (65) 93/51 (65) 116/78 (91) Pulse Ox 96 99 06/07/18 06/07/18 06/07/18 06/07/18 14:20 14:30 14:35 14:40 Pulse 58 58 Resp 17 19 B/P (MAP) 114/64 (81) 103/66 (78) 81/24 (43) Pulse Ox 100 98 06/07/18 15:37 Temp 97.0 Physical Exam General/Constitutional: Patient is awake, alert, nontoxic and in no acute respiratory distress. Head: Facial features consistent with trisomy 21 and low set ears, neck pad with short neck flat facial features., Flattened nose Eyes: Conjunctival clear, Pupils are equal and reactive to light. Extraocular muscles are intact and symmetrical. Sclera are clear and anicteric. Ears:External canals are clear. Tympanic membranes are clear with normal landmarks and light reflex. Nares: No rhinorrhea or bleeding. Turbinates are pink and moist. Oropharyngeal: Mucous membranes are moist. There is no pharyngeal erythema or exudate. There are no palatal petechiae. Uvula is midline and symmetrical. Neck: Supple, no adenopathy. Cardiovascular: Heart is regular rate and rhythm without audible murmurs, rubs or gallops. Pulmonary: Lungs are clear to auscultation bilaterally. There are no wheezes, rales, or rhonchi. Chest rise is symmetrical Abdomen: Soft, nontender, no guarding or peritoneal signs. exam: Marc 4 female. [place] of the left inguinal canal shows a quarter- sized area of erythema with white appearance to the skin consistent with tinea crux Extremities: No gross deformities, patient with chronic venous stasis changes to bilateral lower extremities below the knees left greater than right. There is some erythema and it. There is no warmth appreciable to touch. Neuro: Prior to administration of ketamine patient pleasant when sitting undisturbed but combative when approached by a caregiver. Skin: No rashes, skin is warm dry and well perfused. Medical Decision Making Data Points Result Diagram: 06/07/18 1235 06/07/18 1301 Laboratory Hematology Test 06/07/18 12:35 06/07/18 13:01 Red Blood Count 4.04 M/uL (4.17-5.56) Mean Corpuscular Volume 104.6 fL (80.0-96.0) Mean Corpuscular Hemoglobin 35.9 pg (26.0-33.0) Mean Corpuscular Hemoglobin Concent 34.3 g/dL (32.0-36.0) Red Cell Distribution Width 14.5 % (11.5-14.5) Mean Platelet Volume 8.5 fL (7.2-11.1) Neutrophils (%) (Auto) 61.3 % (39.4-72.5) Lymphocytes (%) (Auto) 24.2 % (17.6-49.6) Monocytes (%) (Auto) 11.6 % (4.1-12.4) Eosinophils (%) (Auto) 2.5 % (0.4-6.7) Basophils (%) (Auto) 0.4 % (0.3-1.4) Nucleated RBC Relative Count (auto) 0.0 /100WBC Neutrophils # (Auto) 1.9 K/uL (2.0-7.4) Lymphocytes # (Auto) 0.8 K/uL (1.3-3.6) Monocytes # (Auto) 0.4 K/uL (0.3-1.0) Eosinophils # (Auto) 0.1 K/uL (0.0-0.5) Basophils # (Auto) 0.0 K/uL (0.0-0.1) Nucleated RBC Absolute Count (auto) 0.00 K/uL Peripheral Blood Smear No Y/N Urine Color Yellow Urine Clarity Clear Urine pH 6.0 pH (4.8-9.5) Urine Specific [place] 1.008 Urine Protein Negative mg/dL (NEGATIVE) Urine Glucose (UA) Negative mg/dL (NEGATIVE) Urine Ketones Negative mg/dL (NEGATIVE) Urine Blood Negative (NEGATIVE) Urine Nitrite Negative (NEGATIVE) Urine Bilirubin Negative (NEGATIVE) Urine Urobilinogen Negative mg/dL (0.2-1.9) Urine Leukocyte Esterase Negative (NEGATIVE) Urine RBC <1 /HPF (0-2/HPF) Urine WBC <1 /HPF (0-5/HPF) Urine Squamous Epithelial Cells None /LPF (NONE-FEW) Urine Transitional Epithelial Cells Few /LPF (NONE-FEW) Urine Bacteria Negative /HPF (NONE-FEW) Urine Mucus None /HPF (NONE-FEW) Sodium Level 141 mmol/L (137-145) Potassium Level 4.3 mmol/L (3.5-5.0) Chloride Level 105 mmol/L (98-107) Carbon Dioxide Level 30 mmol/L (22-31) Blood Urea Nitrogen 16 mg/dl (7-18) Creatinine 0.90 mg/dl (0.52-1.04) Glomerular Filtration Rate Calc > 60.0 Random Glucose 90 mg/dl (75-110) Calcium Level 9.0 mg/dl (8.4-10.2) Total Bilirubin 0.3 mg/dl (0.2-1.3) Aspartate Amino Transf (AST/SGOT) 42 U/L (0-35) Alanine Aminotransferase (ALT/SGPT) 36 U/L (0-56) Alkaline Phosphatase 104 U/L (0-126) Troponin I < 0.012 ng/ml B-Type Natriuretic Peptide 84 pg/ml (0-100) Total Protein 7.1 g/dl (6.3-8.2) Albumin 3.6 g/dl (3.5-5.0) Lipase 126 U/L (23-300) Chemistry Test 06/07/18 12:35 06/07/18 13:01 White Blood Count 3.2 k/uL (4.5-11.0) Red Blood Count 4.04 M/uL (4.17-5.56) Hemoglobin 14.5 g/dL (12.0-16.0) Hematocrit 42.3 % (34.0-47.0) Mean Corpuscular Volume 104.6 fL (80.0-96.0) Mean Corpuscular Hemoglobin 35.9 pg (26.0-33.0) Mean Corpuscular Hemoglobin Concent 34.3 g/dL (32.0-36.0) Red Cell Distribution Width 14.5 % (11.5-14.5) Platelet Count 212 K/uL (150-450) Mean Platelet Volume 8.5 fL (7.2-11.1) Neutrophils (%) (Auto) 61.3 % (39.4-72.5) Lymphocytes (%) (Auto) 24.2 % (17.6-49.6) Monocytes (%) (Auto) 11.6 % (4.1-12.4) Eosinophils (%) (Auto) 2.5 % (0.4-6.7) Basophils (%) (Auto) 0.4 % (0.3-1.4) Nucleated RBC Relative Count (auto) 0.0 /100WBC Neutrophils # (Auto) 1.9 K/uL (2.0-7.4) Lymphocytes # (Auto) 0.8 K/uL (1.3-3.6) Monocytes # (Auto) 0.4 K/uL (0.3-1.0) Eosinophils # (Auto) 0.1 K/uL (0.0-0.5) Basophils # (Auto) 0.0 K/uL (0.0-0.1) Nucleated RBC Absolute Count (auto) 0.00 K/uL Peripheral Blood Smear No Y/N Urine Color Yellow Urine Clarity Clear Urine pH 6.0 pH (4.8-9.5) Urine Specific [place] 1.008 Urine Protein Negative mg/dL (NEGATIVE) Urine Glucose (UA) Negative mg/dL (NEGATIVE) Urine Ketones Negative mg/dL (NEGATIVE) Urine Blood Negative (NEGATIVE) Urine Nitrite Negative (NEGATIVE) Urine Bilirubin Negative (NEGATIVE) Urine Urobilinogen Negative mg/dL (0.2-1.9) Urine Leukocyte Esterase Negative (NEGATIVE) Urine RBC <1 /HPF (0-2/HPF) Urine WBC <1 /HPF (0-5/HPF) Urine Squamous Epithelial Cells None /LPF (NONE-FEW) Urine Transitional Epithelial Cells Few /LPF (NONE-FEW) Urine Bacteria Negative /HPF (NONE-FEW) Urine Mucus None /HPF (NONE-FEW) Glomerular Filtration Rate Calc > 60.0 Calcium Level 9.0 mg/dl (8.4-10.2) Total Bilirubin 0.3 mg/dl (0.2-1.3) Aspartate Amino Transf (AST/SGOT) 42 U/L (0-35) Alanine Aminotransferase (ALT/SGPT) 36 U/L (0-56) Alkaline Phosphatase 104 U/L (0-126) Troponin I < 0.012 ng/ml B-Type Natriuretic Peptide 84 pg/ml (0-100) Total Protein 7.1 g/dl (6.3-8.2) Albumin 3.6 g/dl (3.5-5.0) Lipase 126 U/L (23-300) Urinalysis Test 06/07/18 12:35 Urine Color Yellow Urine Clarity Clear Urine pH 6.0 pH (4.8-9.5) Urine Specific [place] 1.008 Urine Protein Negative mg/dL (NEGATIVE) Urine Glucose (UA) Negative mg/dL (NEGATIVE) Urine Ketones Negative mg/dL (NEGATIVE) Urine Blood Negative (NEGATIVE) Urine Nitrite Negative (NEGATIVE) Urine Bilirubin Negative (NEGATIVE) Urine Urobilinogen Negative mg/dL (0.2-1.9) Urine Leukocyte Esterase Negative (NEGATIVE) Urine RBC <1 /HPF (0-2/HPF) Urine WBC <1 /HPF (0-5/HPF) Urine Squamous Epithelial Cells None /LPF (NONE-FEW) Urine Transitional Epithelial Cells Few /LPF (NONE-FEW) Urine Bacteria Negative /HPF (NONE-FEW) Urine Mucus None /HPF (NONE-FEW) Microbiology Microbiology Date/Time Source Procedure Growth Status 06/07/18 12:35 Cath Urine Urine Culture - Final NO GROWTH AFTER 2 DAYS Complete EKG/Imaging EKG Interpretation EKG shows normal sinus rhythm with slightly prolonged QT interval at [address] segment or T-wave abnormalities noted Monitor Interpretation: Normal Sinus Rhythm ED Course/Re-evaluation Clinical Indication for ER IV: IV Access ED Course 06/07/2018 11:37:13 am patient is a 58-year-old female. She is quite difficult to deal with and virtually impossible to examine becomes she becomes irritated and combative when you approach her. This apparently is her baseline. I did discuss treatment plan with the caregivers from the [facility] who are authorized to make medical decisions for her; in order to facilitate a full and comprehensive exam I feel that it is appropriate to consider procedural sedation at this time. Caregivers are in agreement. Risks and benefits were discussed. Plan will be to give approximately 2 mg/kg of IM ketamine in a monitored setting. If this dose is adequate we will perform physical exam and necessary lab work and procedures at that time. Treatment team and I caregivers are in agreement with this plan. 06/07/2018 12:32:57 pm was given initial dose of 150 mg of IM ketamine with moderate effect but required an additional 100 mg IM in order to achieve complete effect. Patient now calm cooperative for exam. Exam was completed IV was drawn. We are now obtaining a catheter urine specimen. His position pending workup 06/07/2018 1:43:29 pm remaining workup is unremarkable. Patient does have venous stasis changes to the lower extremities. No evidence of cellulitis. No evidence of heart failure based on normal EKG normal troponin, normal BNP, her lungs on exam and clear chest x-ray. Patient does have evidence of fungal infection to the left inguinal region which we will treat with topical antifu ngal. No evidence of urinalysis based on catheter urine specimen. Culture is pending. We will allow patient to wake up for procedural sedation and will discharge home. Decision to Disposition Date: Jun 07, 2018 Decision to Disposition Time: 18:00 Depart Departure Latest Vital Signs Vital Signs Date Time Temp Pulse Resp B/P (MAP) Pulse Ox O2 Delivery O2 Flow Rate FiO2 06/07/18 15:37 97.0 06/07/18 14:40 81/24 (43) 06/07/18 14:35 58 19 98 06/07/18 12:46 2.0 06/07/18 11:06 Room Air Impression: Primary Impression: Venous stasis dermatitis Additional Impression: Tinea cruris Condition: Improved Disposition: HOME OR SELF-CARE New Scripts Nystatin 100,000 Unit/Gm Top Powder (NYSTATIN 100,000 UNIT/GM TOP POWDER) 15 Gm Powder 15 GM TP BID, #1 TUBE 0 Refills Apply to left ingunial area twice per day as needed for fungal infection Prov: LIZZETTE ALCOCER MD 06/07/18 Patient Instructions: Leg Edema (ED), Tinea Corporis (ED) Problem Qualifiers Primary Impression: Venous stasis dermatitis Laterality: bilateral Qualified Codes: I87.2 - Venous insufficiency (chronic) (peripheral) LIZZETTE ALCOCER MD Jun 07, 2018 11:08
[2018-06-07] MEDS ORDERED: KETAMINE HCL 500 MG/5 ML VIAL IM ONE ×2 (11:40→12:10)
--- NOTE | 2018-06-07 12:24 | EKG ---
FACILITY: [facility] PATIENT NAME: WALTER CADENA : [id number] MR: [id number] V: [id number] EXAM DATE: ORDERING PHYSICIAN: LIZZETTE ALCOCER TECHNOLOGIST: KARON Daniels Reason : CARDIAC Blood Pressure : / mmHG Vent. Rate : 076 BPM Atrial Rate : 076 BPM P-R Int : 146 ms QRS Dur : 086 ms QT Int : 420 ms P-R-T Axes : 055 034 031 degrees QTc Int : 472 ms Sinus rhythm Nonspecific ST findings Prolonged QT Abnormal ECG When compared with ECG of 02-SEP-2017 11:38, T wave inversion less evident in Anterior leads Confirmed by GLADYS WEBB ([id number]) on 06/07/2018 3:59:10 PM Referred By: LEODAN Confirmed By:GLADYS WEBB
[2018-06-07 12:46] LABS: PLATELET COUNT, AUTOMATED 212 K/uL (150-450)
[2018-06-07] MEDS ORDERED: NYST15PO4 TP (12:53)
[2018-06-07] MEDS ORDERED: NS(*) 0.9% 1000 ML BAG 1,000 ML IV ONE (13:20)
--- NOTE | 2018-06-07 13:22 | RADIOLOGY IMAGING REPORT ---
FACILITY: [facility] PATIENT NAME: Keerthi Melendez : 1960 MR: [id number] V: [id number] EXAM DATE: ORDERING PHYSICIAN: LIZZETTE ALCOCER TECHNOLOGIST: Location: [facility] [place] Patient: Keerthi Melendez : 1960 Visit/Account:[id number] Date of Sevice: 06/07/2018 CHEST SINGLE AP Indication: med screen Comparison: Chest x-ray 09/04/2017 Findings: Lungs: Clear. Mediastinum/pulmonary vasculature: Heart size is at the upper limits of normal. Bones/soft tissues: Degenerative changes are seen in the right shoulder. IMPRESSION: Clear lungs. Report Dictated By: Akin Garcia at 06/07/2018 1:16 PM Report E-Signed By: Akin Garcia at 06/07/2018 1:17 PM WSN:[id number]
[2018-06-07 14:40] VITALS: BP 81/24
[2018-06-07] MEDS ORDERED: DULO60CA7 (15:17)
[2018-06-07] MEDS ORDERED: DIAZ-308 PO (15:17)
[2018-06-07] MEDS ORDERED: OLAN5TAB27 PO (15:19)
== END 2018-06-07 15:45 | disposition home or self-care (01) ==
LOC: ER 11:15
DX: I87.2 Venous insufficiency (chronic) (peripheral) (principal); B35.6 Tinea cruris; Q90.9 Down syndrome, unspecified; F03.90 Unspecified dementia, unspecified severity, without behavioral disturbance, psychotic disturbance, mood disturbance, and anxiety; R94.31 Abnormal electrocardiogram [ECG] [EKG]
CPT/HCPCS: 36415; 71045; 81001; 83690; 83880; 84484; 85025; 87088; 93005; 96360; 96361; 96372; 99284; A4353; J7030; 82040; 82247; 82310; 82374; 82435; 82565; 82947; 84075; 84132; 84155; 84295; 84450; 84460; 84520

== ENCOUNTER → 2018-06-20 | Outpatient (CLI) | payer MEDICARE, MEDICAID ==
[2017-09-03 08:54] VITALS: BMI 36.1
[~2018-06-20] MED LIST changes: +DULO60CA7; +HYDR-385 PO; +NYST15PO4 TP; +OLAN5TAB27 PO; +POLY10DR20 OU; +TICA60TA PO; +TRAM-420 PO
== END ==
LOC: LAB 15:26
PROVIDERS: ATTEND Nurse Practitioner Family
DX: Z02.9 Encounter for administrative examinations, unspecified (principal)

== ENCOUNTER 2018-07-11 12:05 | Emergency (ER) | payer MEDICARE, MEDICAID ==
[2017-09-03 08:54] VITALS: Wt 63.5 kg
[~2018-07-11 12:05] MED LIST changes: +PRED20TA6 PO
--- NOTE | 2018-07-11 12:06 | ER Report ---
History and Physical Time Seen By MD: 12:06 HPI/ROS CHIEF COMPLAINT: Hypoxia, hypothermia, dehydration HISTORY OF PRESENT ILLNESS: 58-year-old female patient presents to emergency room with complaint of hypoxia, hypothermia and dehydration. Patient is a resident of [facility] and has been found to be not drinking very much for the past several days. She has not had a bowel movement. They state that she has been shaking and states she's been shaking more than normal. They did check her temperature today and the lowest it got was 95. I also checked her oxygen and she was found to be 79% on room air. They did apply 1 L of oxygen at that time. They state the patient has not been having any nausea, vomiting or diarrhea. States she is not been interested in eating. There was some concern about possibly needing a behavioral health admission due to depressive disorder. REVIEW OF SYSTEMS: Respiratory: As noted above Cardiovascular: No chest pain, no palpitations. Gastrointestinal: No vomiting, no abdominal pain. Musculoskeletal: No back pain. Allergies: Uncoded Allergies: perfume (Allergy, Unknown, 02/01/14) skin sensitive to perfumed soaps and deodorants SOAP (Adverse Reaction, Unknown, 02/01/14) Home Meds Active Scripts Hydrocodone Bit/Acetaminophen (HYDROCODON-ACETAMINOPHEN 5-325) 1 Each Tablet, 1 TAB PO TID PRN for PAIN, #90 TAB 0 Refills Prov:BILL MCKNIGHT APRN [employer]-C 06/22/18 Nystatin 100,000 Unit/Gm Top Powder (NYSTATIN 100,000 UNIT/GM TOP POWDER) 15 Gm Powder, 15 GM TP BID, #1 TUBE 0 Refills Apply to left ingunial area twice per day as needed for fungal infection Prov:LIZZETTE ALCOCER MD 06/07/18 Levothyroxine Sodium (SYNTHROID) 75 Mcg Tablet, 0.075 MG PO QDAY@06, #30 TAB Prov:ROBERT AVILA DO 09/07/17 Reported Medications Triamcinolone Acetonide 0.1% Oint 15 Gm Tube (TRIAMCINOLONE ACETONIDE 0.1% 15 GM TUBE) 15 Gm Oint...g., 15 GM TP PRN, TUBE 07/11/18 Trazodone Hcl (TRAZODONE HCL) 50 Mg Tablet, 25 MG PO QHS 07/11/18 [sodium chloride opth] No Conflict Check, DAILY 07/11/18 Guaifenesin (ROBAFEN) 100 Mg/5 Ml Liquid, 20 ML PO Q4-6H PRN for CONGESTION 07/11/18 Risperidone (RISPERIDONE) 1 Mg Tablet, 1 MG PO BID 07/11/18 Vit C/Honey Ac/Lut/Copper/Znox (PRESERVISION LUTEIN SOFTGEL) 1 Each Capsule, 1 EACH PO BID, CAPSULE 07/11/18 Skin Cleanser (PERIFRESH) 3,840 Ml Cleanser, 3840 ML TP BID 07/11/18 Lorazepam (LORAZEPAM) 0.5 Mg Tablet, 1 MG PO BID 07/11/18 Chlorhexidine Gluconate (HIBICLENS) 118 Ml Liquid, 118 ML TP DAILY 07/11/18 Duloxetine HCl (Duloxetine HCl) 60 Mg Capsule.dr, 90 MG PO DAILY 07/11/18 Menthol (BIOFREEZE) 118 Ml Gel..ml., PRN 07/11/18 Bacitracin Zinc (BACITRACIN ZINC) 120 Gm Oint...g., 120 GM TP PRN 07/11/18 Loperamide Hcl (ANTI-DIARRHEAL) 2 Mg Capsule, 2 TAB PO PRN, CAPSULE 07/11/18 Amoxicillin 500 Mg Tab (AMOXICILLIN 500 MG TAB) 500 Mg Tablet, 4 TAB PO PRN, TAB 07/11/18 Olanzapine (OLANZAPINE) 5 Mg Tablet, 5 MG PO Q6H PRN for AGITATION/PSYCHOSIS 06/07/18 Diazepam (DIAZEPAM) 5 Mg Tablet, 5 MG PO PRN, #15 TAB 06/07/18 Acetaminophen (TYLENOL) 325 Mg Tablet, 650 MG PO BID, TAB 09/02/17 Parab/Cet Alc/Stryl Alc/Pg/Sls (CETAPHIL DAILY FACIAL CLEANSER) 473 Ml Cleanser, 1 ROB TP DAILY 08/24/17 Sodium Fluoride (PREVIDENT 5000 PLUS) 51 Gm Cream..g., 1 ROB DT BID 08/24/17 Gly/Dimeth/Petrolat,Wht/Water (CETAPHIL MOISTURIZING CREAM) 85 Gm Cream..g., 1 ROB TP BID 08/24/17 Multivitamin (MULTIVITAMINS) 1 Each Capsule, 1 EACH PO QDAY, CAPSULE 08/23/17 Eyelid Cleanser Combination #5 (OCUSOFT LID SCRUB) 1 Each Med..pad, 1 EACH TP QDAY 08/23/17 Fluticasone/Vilanterol 100/25 Mcg/Inh (BREO ELLIPTA 100/25 MCG) 1 Each Aer.pow.ba, 1 INH INH QDAY, INH 08/23/17 Polyvinyl Alcohol/Povidone/Pf (REFRESH CLASSIC EYE DROPS) 1 Each Droperette, 1 DROP OP 6 times a day 08/23/17 Petrolatum,White (AQUAPHOR) 99 Gm Oint...g., 99 GM TP QDAY 08/23/17 Talc/Cellulos/Chloroxy/Aldioxa (ZEASORB POWDER) 71 Gm Powder, 71 GM TP BID 08/23/17 Lamotrigine (LAMOTRIGINE) 200 Mg Tab.er.24, 200 MG PO QDAY 08/23/17 Discontinued Reported Medications Duloxetine HCl (Duloxetine HCl) 60 Mg Capsule.dr, 30 QDAY 06/07/18 Trazodone Hcl (TRAZODONE HCL) 50 Mg Tablet, 50 MG PO QHS 12/06/17 Fluticasone/Vilanterol 100/25 Mcg/Inh (BREO ELLIPTA 100/25 MCG) 1 Each Aer.pow.ba, 1 INH INH QDAY, INH 12/06/17 Fluoxetine Hcl (FLUOXETINE HCL) 10 Mg Capsule, 30 MG PO QDAY, CAPSULE 09/02/17 Melatonin (MELATONIN) 10 Mg Capsule, 1 TAB PO QHS 09/02/17 Vit A/Vit C/Vit E/Zinc/Copper (PRESERVISION AREDS SOFTGEL) 1 Each Capsule, 1 EACH PO BID, CAPSULE 08/23/17 Discontinued Scripts Ticagrelor (Brilinta) 60 Mg Tablet, 1 TAB PO BID, #60 TAB 0 Refills Prov:BILL MCKNIGHT APRNP-C 06/21/18 Polymyxin B Sulf/Trimethoprim (POLYTRIM EYE DROPS) 10 Ml Drops, 2 GTT OU QID for 7 Days, #10 ML 0 Refills Prov:BILL MCKNIGHT APRN [employer]-C 06/20/18 Prednisone (PREDNISONE) 20 Mg Tablet, 1 TAB PO QDAY, #5 TAB 0 Refills Prov:BILL MCKNIGHT APRN [employer]OVIE [employer]IC-C 06/30/18 Past Medical/Surgical History Patient has a past medical history of mental retardation. Patient has no pertinent surgical history. Reviewed Nurses Notes: Yes Hx Smoking: No Smoking Status: Never Smoker Exposure to Second Hand Smoke?: No Hx Substance Use Disorder: No Hx Alcohol Use: No Constitutional Vital Sign - Last 24 Hours 07/11/18 07/11/18 07/11/18 07/11/18 12:12 12:15 12:16 12:30 Temp 97.3 Pulse 94 Resp 10 B/P (MAP) 126/50 126/50 (75) Pulse Ox 91 77 O2 Delivery Nasal Cannula O2 Flow Rate 4.0 07/11/18 07/11/18 07/11/18 07/11/18 13:15 13:30 13:45 14:00 Pulse 80 69 65 Pulse Ox 100 93 92 O2 Flow Rate 1.0 07/11/18 07/11/18 07/11/18 07/11/18 14:00 14:15 14:30 14:45 Pulse 64 68 59 65 Pulse Ox 92 100 99 98 07/11/18 07/11/18 07/11/18 07/11/18 15:30 15:45 16:00 16:15 Pulse 94 77 81 63 Pulse Ox 97 100 100 89 07/11/18 07/11/18 07/11/18 07/11/18 16:30 16:45 17:00 17:15 Pulse 62 62 61 86 Pulse Ox 87 89 85 07/11/18 17:29 B/P (MAP) 125/81 (96) Physical Exam General Appearance: The patient is alert, has no immediate need for airway protection and no current signs of toxicity. ENT: Tympanic membranes are pearly-beltrán, auditory canals are patent. Respiratory: Chest is non tender, lungs are clear to auscultation. Cardiac: regular rate and rhythm Gastrointestinal: Abdomen is soft and non tender, no masses, bowel sounds normal. Musculoskeletal: Neck: Neck is supple and non tender. Extremities have full range of motion and are non tender. Skin: No rashes or lesions. DIFFERENTIAL DIAGNOSIS: After history and physical exam differential diagnosis was considered for aspiration pneumonia, pulmonary medicine, sepsis, urinary tract infection. Medical Decision Making Data Points Result Diagram: 07/11/18 1203 07/11/18 1203 Laboratory Hematology Test 07/11/18 00:00 07/11/18 12:03 07/11/18 12:56 07/11/18 17:19 Magnesium Level 1.9 mg/dl (1.7-2.2) Thyroid Stimulating Hormone (TSH) 6.00 uIU/ml (0.46-4.68) Salicylates Level < 10 mg/L Salicylate Last Dose Date unk Urine Opiates Screen Negative Acetaminophen Level < 10 ug/ml Urine Barbiturates Screen Negative Ur Tricyclic Antidepressants Screen Negative Urine Phencyclidine Screen Negative Urine Amphetamines Screen Negative Urine Benzodiazepines Screen Positive Urine Cocaine Screen Negative Urine Cannabinoids Screen Negative Serum Alcohol < 10 mg/dl Red Blood Count 4.62 M/uL (4.17-5.56) Mean Corpuscular Volume 103.9 fL (80.0-96.0) Mean Corpuscular Hemoglobin 35.5 pg (26.0-33.0) Mean Corpuscular Hemoglobin Concent 34.2 g/dL (32.0-36.0) Red Cell Distribution Width 14.9 % (11.5-14.5) Mean Platelet Volume 8.8 fL (7.2-11.1) Neutrophils (%) (Auto) 76.8 % (39.4-72.5) Lymphocytes (%) (Auto) 12.4 % (17.6-49.6) Monocytes (%) (Auto) 8.9 % (4.1-12.4) Eosinophils (%) (Auto) 1.2 % (0.4-6.7) Basophils (%) (Auto) 0.7 % (0.3-1.4) Nucleated RBC Relative Count (auto) 0.0 /100WBC Neutrophils # (Auto) 3.6 K/uL (2.0-7.4) Lymphocytes # (Auto) 0.6 K/uL (1.3-3.6) Monocytes # (Auto) 0.4 K/uL (0.3-1.0) Eosinophils # (Auto) 0.1 K/uL (0.0-0.5) Basophils # (Auto) 0.0 K/uL (0.0-0.1) Nucleated RBC Absolute Count (auto) 0.00 K/uL D-Dimer Quantitative (PE/DVT) 0.80 ug/ml (0-0.50) Sodium Level 139 mmol/L (137-145) Potassium Level 4.3 mmol/L (3.5-5.0) Chloride Level 98 mmol/L (98-107) Carbon Dioxide Level 30 mmol/L (22-31) Blood Urea Nitrogen 20 mg/dl (7-18) Creatinine 1.10 mg/dl (0.52-1.04) Glomerular Filtration Rate Calc 51.4 Random Glucose 84 mg/dl (75-110) Lactate 1.2 mmol/L (0.7-2.1) Calcium Level 9.4 mg/dl (8.4-10.2) Total Bilirubin 0.7 mg/dl (0.2-1.3) Aspartate Amino Transf (AST/SGOT) 92 U/L (0-35) Alanine Aminotransferase (ALT/SGPT) 79 U/L (0-56) Alkaline Phosphatase 153 U/L (0-126) Troponin I 0.014 ng/ml B-Type Natriuretic Peptide 5 pg/ml (0-100) Total Protein 8.0 g/dl (6.3-8.2) Albumin 4.0 g/dl (3.5-5.0) Urine Color Yellow Urine Clarity Clear Urine pH 5.0 pH (4.8-9.5) Urine Specific [place] 1.020 Urine Protein Negative mg/dL (NEGATIVE) Urine Glucose (UA) Negative mg/dL (NEGATIVE) Urine Ketones Trace mg/dL (NEGATIVE) Urine Blood Negative (NEGATIVE) Urine Nitrite Negative (NEGATIVE) Urine Bilirubin Negative (NEGATIVE) Urine Urobilinogen Negative mg/dL (0.2-1.9) Urine Leukocyte Esterase Negative (NEGATIVE) Urine RBC 1 /HPF (0-2/HPF) Urine WBC 1 /HPF (0-5/HPF) Urine Squamous Epithelial Cells Many /LPF (NONE-FEW) Urine Amorphous Crystals Few /HPF Urine Bacteria Negative /HPF (NONE-FEW) Urine Mucus None /HPF (NONE-FEW) Chemistry Test 07/11/18 00:00 07/11/18 12:03 07/11/18 12:56 07/11/18 17:19 Magnesium Level 1.9 mg/dl (1.7-2.2) Thyroid Stimulating Hormone (TSH) 6.00 uIU/ml (0.46-4.68) Salicylates Level < 10 mg/L Salicylate Last Dose Date unk Urine Opiates Screen Negative Acetaminophen Level < 10 ug/ml Urine Barbiturates Screen Negative Ur Tricyclic Antidepressants Screen Negative Urine Phencyclidine Screen Negative Urine Amphetamines Screen Negative Urine Benzodiazepines Screen Positive Urine Cocaine Screen Negative Urine Cannabinoids Screen Negative Serum Alcohol < 10 mg/dl White Blood Count 4.7 k/uL (4.5-11.0) Red Blood Count 4.62 M/uL (4.17-5.56) Hemoglobin 16.4 g/dL (12.0-16.0) Hematocrit 48.0 % (34.0-47.0) Mean Corpuscular Volume 103.9 fL (80.0-96.0) Mean Corpuscular Hemoglobin 35.5 pg (26.0-33.0) Mean Corpuscular Hemoglobin Concent 34.2 g/dL (32.0-36.0) Red Cell Distribution Width 14.9 % (11.5-14.5) Platelet Count 222 K/uL (150-450) Mean Platelet Volume 8.8 fL (7.2-11.1) Neutrophils (%) (Auto) 76.8 % (39.4-72.5) Lymphocytes (%) (Auto) 12.4 % (17.6-49.6) Monocytes (%) (Auto) 8.9 % (4.1-12.4) Eosinophils (%) (Auto) 1.2 % (0.4-6.7) Basophils (%) (Auto) 0.7 % (0.3-1.4) Nucleated RBC Relative Count (auto) 0.0 /100WBC Neutrophils # (Auto) 3.6 K/uL (2.0-7.4) Lymphocytes # (Auto) 0.6 K/uL (1.3-3.6) Monocytes # (Auto) 0.4 K/uL (0.3-1.0) Eosinophils # (Auto) 0.1 K/uL (0.0-0.5) Basophils # (Auto) 0.0 K/uL (0.0-0.1) Nucleated RBC Absolute Count (auto) 0.00 K/uL D-Dimer Quantitative (PE/DVT) 0.80 ug/ml (0-0.50) Glomerular Filtration Rate Calc 51.4 Lactate 1.2 mmol/L (0.7-2.1) Calcium Level 9.4 mg/dl (8.4-10.2) Total Bilirubin 0.7 mg/dl (0.2-1.3) Aspartate Amino Transf (AST/SGOT) 92 U/L (0-35) Alanine Aminotransferase (ALT/SGPT) 79 U/L (0-56) Alkaline Phosphatase 153 U/L (0-126) Troponin I 0.014 ng/ml B-Type Natriuretic Peptide 5 pg/ml (0-100) Total Protein 8.0 g/dl (6.3-8.2) Albumin 4.0 g/dl (3.5-5.0) Urine Color Yellow Urine Clarity Clear Urine pH 5.0 pH (4.8-9.5) Urine Specific [place] 1.020 Urine Protein Negative mg/dL (NEGATIVE) Urine Glucose (UA) Negative mg/dL (NEGATIVE) Urine Ketones Trace mg/dL (NEGATIVE) Urine Blood Negative (NEGATIVE) Urine Nitrite Negative (NEGATIVE) Urine Bilirubin Negative (NEGATIVE) Urine Urobilinogen Negative mg/dL (0.2-1.9) Urine Leukocyte Esterase Negative (NEGATIVE) Urine RBC 1 /HPF (0-2/HPF) Urine WBC 1 /HPF (0-5/HPF) Urine Squamous Epithelial Cells Many /LPF (NONE-FEW) Urine Amorphous Crystals Few /HPF Urine Bacteria Negative /HPF (NONE-FEW) Urine Mucus None /HPF (NONE-FEW) Coagulation Test 07/11/18 12:03 D-Dimer Quantitative (PE/DVT) 0.80 ug/ml Toxicology Test 07/11/18 00:00 Salicylates Level < 10 mg/L Salicylate Last Dose Date unk Urine Opiates Screen Negative Acetaminophen Level < 10 ug/ml Urine Barbiturates Screen Negative Ur Tricyclic Antidepressants Screen Negative Urine Phencyclidine Screen Negative Urine Amphetamines Screen Negative Urine Benzodiazepines Screen Positive Urine Cocaine Screen Negative Urine Cannabinoids Screen Negative Serum Alcohol < 10 mg/dl Urinalysis Test 07/11/18 12:56 Urine Color Yellow Urine Clarity Clear Urine pH 5.0 pH (4.8-9.5) Urine Specific [place] 1.020 Urine Protein Negative mg/dL (NEGATIVE) Urine Glucose (UA) Negative mg/dL (NEGATIVE) Urine Ketones Trace mg/dL (NEGATIVE) Urine Blood Negative (NEGATIVE) Urine Nitrite Negative (NEGATIVE) Urine Bilirubin Negative (NEGATIVE) Urine Urobilinogen Negative mg/dL (0.2-1.9) Urine Leukocyte Esterase Negative (NEGATIVE) Urine RBC 1 /HPF (0-2/HPF) Urine WBC 1 /HPF (0-5/HPF) Urine Squamous Epithelial Cells Many /LPF (NONE-FEW) Urine Amorphous Crystals Few /HPF Urine Bacteria Negative /HPF (NONE-FEW) Urine Mucus None /HPF (NONE-FEW) EKG/Imaging EKG Interpretation 12 lead EKG: Rhythm: normal sinus rhythm with a ventricular rate of 88 bpm [place]: normal QRS: normal ST segments: normal Imaging CT angiogram chest with contrast Indication: Hypoxia and elevated d-dimer. Comparison: 09/02/2017. Technique: Axial CT images are obtained through the chest after administration of 75 mL Isovue 370 IV contrast. Reformatted coronal and sagittal images were reviewed as well as coronal MIP images. One of the following dose optimization techniques was utilized in the perform ance of this exam: automated exposure control; adjustment of the mA and/or kV according to the patient's size; or use of an iterative reconstruction technique. Specific details can be referenced in the facility's radiology CT exam operational policy. FINDINGS: No evidence of filling defect within the pulmonary vasculature to suggest pulmonary embolus. Heart is upper limits normal for size without pericardial effusion. The right ventricle measures 2.6 cm and the left ventricle measures 2.8 cm. The aorta shows no aneurysm or dissection. The mediastinum and hilar regions show no enlarged lymph nodes or abnormal density. Lungs show dependent atelectasis. No consolidations, pleural effusion or pneumothorax. No discrete nodule or focal interstitial opacities. Airways are clear. Bony structures show no acute fractures or aggressive bony lesions. Degenerative change seen in the spine. Chest wall shows no enlarged axillary lymph nodes or masses. Limited views of the upper abdomen are unremarkable. IMPRESSION: 1. No evidence of pulmonary embolus. 2. Lungs show mild dependent atelectasis. No focal infiltrate. Report Dictated By: Milan Cespedes at 07/11/2018 4:05 PM Report E-Signed By: Milan Cespedes at 07/11/2018 4:15 PM Single view of the chest Indication: Distress. Comparison: X-ray examination of the chest June 07, 2018 Findings: Volumes are low. Heart is stable. No new focal infiltrate. Linear type atelectasis/scarring is seen in the right base. No effusion or pneumothorax. No acute bony finding. IMPRESSION: 1. Low volumes. Minimal right basilar atelectasis/scarring. No acute finding. Report Dictated By: Jony Padgett MD at 07/11/2018 1:29 PM Report E-Signed By: Jony Padgett MD at 07/11/2018 1:32 PM ED Course/Re-evaluation ED Course Patient was admitted in exam room, history and physical were obtained. Differential diagnoses were considered. On examination lungs are clear, heart is regular, abdomen was soft nontender. Patient did allow me to look in your ears without any difficulties. A CBC, CMP, lactate, troponin, d-dimer were done. Patient did have an elevated d-dimer, troponin was negative at 0.014. Chest x- ray was negative. Due to the elevated d-dimer did go ahead and do a CT pulmonary angiogram. While I was waiting for the patient to go to the CT I did receive a phone call from Dr. Malloy, psychiatrist, she stated that she was concerned that depression was the biggest cause of the patient not eating or drinking. She said that there is nothing medically wrong that she would be willing to admit her to behavioral health. I included the rest of the behavioral health labs. Those were negative. I discussed the findings with Dr. Malloy as well as the negative CT scan. She did agree to accept the patient for admission. I then spoke with the patient's brother and let him know the plan. He was up-to-date but appreciated being told what the plan was with his sister. He stated that he would be in to visit with her tomorrow. Decision to Disposition Date: Jul 11, 2018 Decision to Disposition Time: 17:30 Depart Departure Latest Vital Signs Vital Signs Date Time Temp Pulse Resp B/P (MAP) Pulse Ox O2 Delivery O2 Flow Rate FiO2 07/11/18 17:29 125/81 (96) 07/11/18 17:15 86 07/11/18 17:00 85 07/11/18 14:00 1.0 07/11/18 12:12 97.3 10 Nasal Cannula Impression: Primary Impression: Depression Condition: Condition Unchanged Disposition: XFER TO [facility] Referrals: BILL MCKNIGHT APRN [employer]IC-C (PCP) Problem Qualifiers Primary Impression: Depression Depression Type: major depressive disorder Major depression recurrence: single episode Active/Remission status: currently active Major depression episode severity: moderate Qualified Codes: F32.1 - Major depressive disorder, single episode, moderate NYDIA REIS Jul 11, 2018 12:06
[2018-07-11] MEDS ORDERED: NS(*) 0.9% 1000 ML BAG 1,000 ML IV ONE (12:13)
[2018-07-11] MEDS ORDERED: methylPREDNIS SUCC 125 MG/2ML IVP ONE (12:15)
[2018-07-11 12:46] LABS: PLATELET COUNT, AUTOMATED 222 K/uL (150-450)
--- NOTE | 2018-07-11 13:17 | EKG ---
FACILITY: [facility] - [place] PATIENT NAME: WALTER CADENA : [id number] MR: [id number] V: [id number] EXAM DATE: ORDERING PHYSICIAN: NYDIA REIS TECHNOLOGIST: Test Reason : Shortness of breath Blood Pressure : / mmHG Vent. Rate : 088 BPM Atrial Rate : 088 BPM P-R Int : 134 ms QRS Dur : 086 ms QT Int : 380 ms P-R-T Axes : 070 055 017 degrees QTc Int : 459 ms Normal sinus rhythm Normal ECG When compared with ECG of 07-JUN-2018 12:09, No significant change was found Confirmed by ROBERT AVILA ([id number]) on 07/12/2018 6:27:23 AM Referred By: Confirmed By:ROBERT AVILA
[2018-07-11] MEDS ORDERED: DULO60CA7 PO (13:32)
[2018-07-11] MEDS ORDERED: AMOX500T10 PO (13:32)
[2018-07-11] MEDS ORDERED: LOPE-84 PO (13:32)
[2018-07-11] MEDS ORDERED: MENT118G (13:32)
[2018-07-11] MEDS ORDERED: BACI120O2 TP (13:32)
--- NOTE | 2018-07-11 13:36 | RADIOLOGY IMAGING REPORT ---
FACILITY: [facility] PATIENT NAME: Keerthi Melendez : 1960 MR: [id number] V: [id number] EXAM DATE: ORDERING PHYSICIAN: NYDIA REIS TECHNOLOGIST: Location: [facility] [place] Patient: Keerthi Melendez : 1960 Visit/Account:[id number] Date of Sevice: 07/11/2018 Single view of the chest Indication: Distress. Comparison: X-ray examination of the chest June 07, 2018 Findings: Volumes are low. Heart is stable. No new focal infiltrate. Linear type atelectasis/scarring is see n in the right base. No effusion or pneumothorax. No acute bony finding. IMPRESSION: 1. Low volumes. Minimal right basilar atelectasis/scarring. No acute finding. Report Dictated By: Jony Padgett MD at 07/11/2018 1:29 PM Report E-Signed By: Jony Padgett MD at 07/11/2018 1:32 PM WSN:[id number]
[2018-07-11] MEDS ORDERED: IOPAMIDOL 76% 100 ML INFUS BTL 100 ML ONE (13:40)
[2018-07-11] MEDS ORDERED: NS(*) 0.9% 50 ML BAG 50 ML ONE (13:40)
[2018-07-11] MEDS ORDERED: CHLO118L6 TP (14:37)
[2018-07-11] MEDS ORDERED: [UNRECOGNIZED DRUG - CODE] TP (15:12)
[2018-07-11] MEDS ORDERED: VIT1CAPS39 PO (15:12)
[2018-07-11] MEDS ORDERED: LORA-630 PO (15:12)
[2018-07-11] MEDS ORDERED: KETAMINE HCL 500 MG/5 ML VIAL IVP ONE (15:15)
--- NOTE | 2018-07-11 16:19 | RADIOLOGY IMAGING REPORT ---
FACILITY: [facility] PATIENT NAME: Keerthi Melendez : 1960 MR: [id number] V: [id number] EXAM DATE: ORDERING PHYSICIAN: NYDIA REIS TECHNOLOGIST: Location: [facility] - [place] Patient: Keerthi Melendez : 1960 Visit/Account:[id number] Date of Sevice: 07/11/2018 CT angiogram chest with contrast Indication: Hypoxia and elevated d-dimer. Comparison: 09/02/2017. Technique: Axial CT images are obtained through the chest after administration of 75 mL Isovue 370 IV contrast. Reformatted coronal and sagittal images were reviewed as well as coronal MIP images. One of the following dose optimization techniques was utilized in the performance of this exam: auto mated exposure control; adjustment of the mA and/or kV according to the patient's size; or use of an iterative reconstruction technique. Specific details can be referenced in the facility's radiology C T exam operational policy. FINDINGS: No evidence of filling defect within the pulmonary vasculature to suggest pulmonary embolus. Heart is upper limits normal for size without pericardial effusion. The right ventricle measures 2.6 cm and the left ventricle measures 2.8 cm. The aorta shows no aneurysm or dissection. The mediastinum and hilar regions show no enlarged lymph nodes or abnormal density. Lungs show dependent atelectasis. No consolidations, pleural effusion or pneumothorax. No discrete no dule or focal interstitial opacities. Airways are clear. Bony structures show no acute fractures or aggressive bony lesions. Degenerative change seen in the [place]. Chest wall shows no enlarged axillary lymph nodes or masses. Limited views of the upper abdomen are unremarkable. IMPRESSION: 1. No evidence of pulmonary embolus. 2. Lungs show mild dependent atelectasis. No focal infiltrate. Report Dictated By: Milan Cespedes at 07/11/2018 4:05 PM Report E-Signed By: Milan Cespedes at 07/11/2018 4:15 PM WSN:[id number]
[2018-07-11] MEDS ORDERED: SODIUM CHLORIDE OPTH (16:21)
[2018-07-11] MEDS ORDERED: RISP1TAB79 PO (16:21)
[2018-07-11] MEDS ORDERED: TRIA15OI20 TP (16:21)
[2018-07-11] MEDS ORDERED: TRAZ50TA34 PO (16:21)
[2018-07-11] MEDS ORDERED: GUAI-244 PO (16:21)
[2018-07-11 17:29] VITALS: BP 125/81
[2018-07-12] MEDS ORDERED: TICA60TA PO (15:48)
[2018-07-12] MEDS ORDERED: CARB15DR76 OP (15:48)
[2018-07-12] MEDS ORDERED: DULO30CA35 PO (15:48)
[2018-07-12] MEDS ORDERED: SODI3.5O14 OP (16:09)
== END 2018-07-11 17:40 ==
LOC: ER 12:35
DX: F32.1 Major depressive disorder, single episode, moderate (principal)
CPT/HCPCS: 71045; 71275; 80305; 81001; 83605; 83735; 83880; 84439; 84443; 84481; 84484; 85025; 85379; 87040; 93005; 96361; 96374; 96375; 99284; A4353; G0480; J2930; J7030; J7050; Q9967; 80320; 80329; 82040; 82247; 82310; 82374; 82435; 82565; 82947; 84075; 84132; 84155; 84295; 84450; 84460; 84520

== ENCOUNTER 2018-07-11 16:59 | Inpatient (IN) | payer MEDICARE, MEDICAID ==
[2017-09-03 08:54] VITALS: Ht 147.3 cm; Wt 63.5 kg
[~2018-07-11] VITALS: Ht 147.3 cm; Wt 63.5 kg
[~2018-07-11 16:59] MED LIST changes: +BACI120O2 TP; +DULO60CA7 PO; +GUAI-244 PO; +LOPE-84 PO; +LORA-630 PO; +MENT118G; +RISP1TAB79 PO; +SODIUM CHLORIDE OPTH; +TRIA15OI20 TP; +[UNRECOGNIZED DRUG - CODE] TP
[2018-07-11] MEDS ORDERED: traMADol 50 MG TAB PO PRN (20:30)
[2018-07-11 20:54] VITALS: BP 114/87
[2018-07-11] MEDS: TICAGRELOR 60 MG TAB PO SCH (21:00)
[2018-07-11] MEDS: LORazepam 1 MG TAB PO SCH (22:04)
[2018-07-11] MEDS: risperiDONE 1 MG TAB PO SCH (22:05)
[2018-07-11] MEDS: DOCUSATE SODIUM 100 MG CAP PO SCH (22:05)
[2018-07-11] MEDS: traZODone HCL 50 MG TAB PO SCH (22:05)
[2018-07-12] MEDS: LEVOTHYROXINE SOD 0.1 MG TAB PO SCH (05:16)
[2018-07-12] MEDS: FLUTICASONE/VILANTEROL 100 MCG/25 MCG INH INH SCH (06:00)
[2018-07-12 06:28] VITALS: BP 123/68
[2018-07-12 08:23] VITALS: BP 111/67
[2018-07-12] MEDS ORDERED: predniSONE 20 MG TAB PO SCH (09:00)
[2018-07-12] MEDS ORDERED: DULoxetine HCL 30 MG CAPCR PO SCH ×2 (09:00→09:05)
[2018-07-12] MEDS: LORazepam 1 MG TAB PO SCH (09:43)
[2018-07-12] MEDS: lamoTRIgine 100 MG TAB PO SCH (09:43)
[2018-07-12] MEDS: TICAGRELOR 60 MG TAB PO SCH ×2 (09:43→21:29)
[2018-07-12] MEDS: DOCUSATE SODIUM 100 MG CAP PO SCH ×2 (09:43→21:30)
[2018-07-12] MEDS: risperiDONE 1 MG TAB PO SCH (09:44)
[2018-07-12] MEDS: predniSONE 10 MG TAB PO SCH (09:44)
--- NOTE | 2018-07-12 10:44 | RADIOLOGY IMAGING REPORT ---
FACILITY: [facility] - [place] PATIENT NAME: Keerthi Melendez : 1960 MR: [id number] V: [id number] EXAM DATE: ORDERING PHYSICIAN: ROMMEL CRYSTAL TECHNOLOGIST: Location: [facility] - [place] Patient: Keerthi Melendez : 1960 Visit/Account:[id number] Date of Sevice: 07/12/2018 VENOUS DOPP LOWER BILAT EXTREM HISTORY: MOTTLED LEGS. ELEVATED D. DIMER. RULE OUT DVT COMPARISON: 05/23/2018 FINDINGS: Grayscale, duplex and color Doppler interrogation of the right and left lower extremity deep veins, f rom common femoral vein to proximal calf was completed. Compression was performed where it was possib le. RIGHT LOWER EXTREMITY: Common femoral vein - Negative. Femoral vein - Negative. Deep femoral vein - Negative. Popliteal vein - Negative. Visualized deep calf veins - Negative. Popliteal fossa: Negative. LEFT LOWER EXTREMITY: Common femoral vein - Negative. Femoral vein - Negative. Deep femoral vein - Negative. Popliteal vein - Negative. Visualized deep calf veins - Negative. Popliteal fossa: Negative. IMPRESSION: No evidence of deep venous thrombosis in the visualized veins of the right or left lower extremity. Report Dictated By: Rommel Schumacher at 07/12/2018 10:38 AM Report E-Signed By: Rommel Schumacher at 07/12/2018 10:39 AM WSN:[id number]
[2018-07-12] MEDS ORDERED: TICA60TA PO (15:48)
[2018-07-12] MEDS ORDERED: DULO30CA35 PO (15:48)
[2018-07-12] MEDS ORDERED: CARB15DR76 OP (15:48)
[2018-07-12] MEDS ORDERED: SODI3.5O14 OP (16:09)
[2018-07-12] MEDS ORDERED: LORazepam 1 MG TAB PO SCH (21:00)
[2018-07-12] MEDS ORDERED: risperiDONE 1 MG TAB PO SCH (21:00)
[2018-07-12] MEDS: traZODone HCL 50 MG TAB PO SCH (21:29)
[2018-07-12 22:10] VITALS: BP 104/69
[2018-07-13] MEDS: LEVOTHYROXINE SOD 0.1 MG TAB PO SCH (06:00)
[2018-07-13 06:34] VITALS: BP 99/54
[2018-07-13] MEDS: FLUTICASONE/VILANTEROL 100 MCG/25 MCG INH INH SCH (06:42)
--- NOTE | 2018-07-13 08:07 | EKG ---
FACILITY: [facility] - [place] PATIENT NAME: WALTER CADENA : [id number] MR: [id number] V: [id number] EXAM DATE: ORDERING PHYSICIAN: ROMMEL CRYSTAL TECHNOLOGIST: DIANA Test Reason : HYPOXIA Blood Pressure : / mmHG Vent. Rate : 070 BPM Atrial Rate : 070 BPM P-R Int : 144 ms QRS Dur : 094 ms QT Int : 408 ms P-R-T Axes : 039 055 061 degrees QTc Int : 440 ms Normal sinus rhythm Normal ECG When compared with ECG of 11-JUL-2018 12:22, Nonspecific T wave abnormality no longer evident in Inferior leads Confirmed by Jere Caraballo ([id number]) on 07/13/2018 4:48:57 PM Referred By: ROSSANA Confirmed By:Jere Gaines
--- NOTE | 2018-07-13 08:19 | SCHAAF H&P ---
DATE OF ADMISSION: July 11, 2018 ATTENDING PHYSICIAN Homero Rodrigues MD The patient was seen at approximately 08:00 hours on July 12, 2018 for note concerning this dictation. PRESENTING PROBLEM, CHIEF COMPLAINT Altered mental status. HISTORY OF PRESENT ILLNESS This is 58-year-old female suffering from Trisomy 21 and associated neurocognitive impairment. 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 The patient started to slowly decompensate to the point that the patient was appearing to have a catatonic state of psychotic depression. The patient noted at [facility] to be staying up all night holding onto odonnell and whispering to odonnell. The patient's appetite has decreased significantly as well. In and effort to curb symptoms, Risperdal was increased to 1 mg b.i.d. from what is believed to be Risperdal 1 mg daily. Cymbalta was increased to 90 mg daily relatively recently and Ativan was added 1 mg b.i.d. for again the catatonic type presentation. The patient continued to decompensate at [facility] and eventually brought to the emergency room where she was found to have some hypoxia. The patient eventually medically cleared, brought to the Behavioral Health Unit. The patient unable to be interviewed herself. Outpatient provider was present. The patient remained in a state of lethargy. The patient likely suffering the after affects of acute infection. The patient currently on Prednisone. The patient also likely suffering from relative elderly age in this Down syndrome patient. May be developing dementia as well. MENTAL HEALTH HISTORY/FAMILY PSYCHIATRIC HISTORY/PAST MEDICAL HISTORY/SOCIAL HISTORY/LEGAL HISTORY/SUBSTANCE ABUSE HISTORY Please see records from [facility]. PHYSICAL EXAMINATION Please see emergency room note. This is a 58-year-old female who became somewhat resistant to care in the emergency room, initially admitted and requiring Ketamine for brief sedation. Vital signs at the time of admission: Temperature 97.3, pulse 64, respiratory rate low at 10, blood pressure 126/50 and pulse oximetry 91% on nasal cannula at 4 liters. LABORATORY DATA CBC at time of admission notable for hemoglobin and hematocrit elevated at 16.4 and 48, MCV and MCH elevated at 103.9 and 35.5 respectively. Chemistry panel notable for creatinine slightly elevated at 1.1 with a BUN elevated at 20, AST elevated slightly at 92, with an ALT slightly elevated at 79, alkaline phosphatase elevated at 153. Lactate within normal limits 1.2, beta natriuretic peptide within normal limits. Free T3 is pending at time of this dictation. Free T4 1.32. Troponins detectable at 0.014. D-Dimer elevated at 0.8. Urinalysis unremarkable and toxicology screen positive for benzodiazepines prescribed to the patient, negative for any other substances of abuse with a nondetectable serum alcohol level. Blood cultures were pending with no growth as of yet. ESR was found to be 29 with a C-reactive protein elevated at 2.2. Repeat troponins were nondetectable, less than 0.012. Vitamin B12 and Folate pending at time of this dictation. IMAGING CTA of the chest showed no evidence of pulmonary embolus. The lungs did show mild dependant atelectasis with no focal infiltrate. Chest x-ray was notable for low volumes overall with minimal right basilar atelectasis and scarring with no acute findings. EKG: Normal sinus rhythm with a QTC of 459. MENTAL STATUS EXAMINATION Unable to be interviewed. The patient lethargic appearing. Lethargy due to illness or over sedation with meds vs. catatonic state of psychosis. Continues to need further evaluation. The rest of mental status exam unable to be completed. ASSESSMENT This is a retirement [facility] patient suffering from Down syndrome and likely related cognitive conditions currently. The patient in a state of what appears to be a psychotic depression, possibly catatonia at [facility] program prior to arrival at the emergency room. The patient also likely suffering the onset of dementia associated with relative advanced age in this Down syndrome patient. Will continue to evaluate, titrate meds accordingly. The patient also possibly suffering from constipation at this time as well which will be monitored. DIAGNOSES PER DSM-V 1. Major depression with psychotic features. 2. Rule out onset of neurocognitive impairment in this patient with history of Trisomy 21. 3. Rule out altered mental status secondary to general medical condition, recent acute infection. 4. History of supportive living at [facility]. PLAN 1. Will admit to the unit. 2. Necessary precautions will be implemented. 3. The patient will participate in individual and group therapy. 4. Medications will be addressed and titrated accordingly to attempt to evaluate catatonic state associated with psychosis vs. lethargy potentially secondary to general medical condition or recent medication increase. 5. Collateral information to be obtained as necessary. 6. Estimated length of stay 3-5 days. MTDD
[2018-07-13] MEDS: risperiDONE 0.25 MG TAB PO SCH (08:24)
[2018-07-13] MEDS: predniSONE 10 MG TAB PO SCH (08:24)
[2018-07-13] MEDS: DULoxetine HCL 30 MG CAPCR PO SCH (08:24)
[2018-07-13] MEDS: lamoTRIgine 100 MG TAB PO SCH (08:24)
[2018-07-13] MEDS: DOCUSATE SODIUM 100 MG CAP PO SCH (08:24)
[2018-07-13] MEDS: TICAGRELOR 60 MG TAB PO SCH ×2 (08:24→22:04)
[2018-07-13] MEDS: LORazepam 0.5 MG TAB PO SCH (08:25)
--- NOTE | 2018-07-13 11:17 | BHS Progress Note ---
[facility] - Subjective Progress Notes Subjective Patient more alert this AM, than yesterday AM, and Sedating medications were held this AM, including ativan and risperdal. CRP is elevated, patient now eating and drinking some. Constipation may be a concern, will push fluids and prune juice today, and look for forms of visual and auditory entertainment. Suicidal Ideation: None Homicidal Ideation: None [facility] - Objective Physical Exam Vital Signs Hematology Test 07/12/18 09:14 07/13/18 05:34 Erythrocyte Sedimentation Rate 29 mm/HOUR (0-30) Troponin I < 0.012 ng/ml C-Reactive Protein 2.2 mg/dl (<1.0) Chemistry Test 07/12/18 09:14 07/13/18 05:34 Erythrocyte Sedimentation Rate 29 mm/HOUR (0-30) Troponin I < 0.012 ng/ml C-Reactive Protein 2.2 mg/dl (<1.0) Vital Signs Date Time Temp Pulse Resp B/P (MAP) Pulse Ox O2 Delivery O2 Flow Rate FiO2 07/13/18 06:42 75 16 07/13/18 06:34 98.7 99/54 (69) 93 Nasal Cannula 0.5 Muscle Strength and Tone: WNL Gait and Station: Unsteady (currently grossly limited) [facility] Medications Reviewed: Side Effects, Benefits of Medication, Risks Mental Status Exam General Appearance: Unkept; No Tearful, No Psychomotor Agitation; Psychomotor Retardation; No Bizarre Mannerisms, No Tics Speech: Normal Rate, Normal Rhythm, Delayed, Slurred, Garbled Mood: Dysthmic/Depressed (likely) Affect: Sad, Withdrawn Thought Process: No Loose Associations, No Flight of Ideas Thought Content: No Suicidal Ideation, No Homicidal Ideation; Auditory Halllucinations (possible), Visual Hallucinations; No Obsessions, No Compulsions Sensorium: Other Cognition: Alert & Oriented-Person; No Alert & Oriented-Place, No Alert & Oriented-Time, No Xruln-Suamirsb-Ohnpmmbzg Memory: Other (probable decline) Intelligence: Below Average (downs syndrome.) Insight Judgment: Poor (life long limitations) [facility] Assessment and Plan [id number] Encounter Date: Jul 13, 2018 Jhbl-[id number] Encounter Time: 10:00 [facility] Plan: Necessary Precautions, Individual/Group Therapy, Admin/Titrate Meds, Educate Patient Tobacco Medications: Not Appropriate Condition Multpiple Antipsychotics Used: No Problems: (1) Down's syndrome Status: Chronic (2) Major depression, recurrent Status: Chronic Condition 1. ativan stopped. 2. cymbalta increased to 120mg QAM 3. risperdal held this AM. 4. employ visual and auditory stimuli ROMMLE CRYSTAL MD Jul 13, 2018 11:17
[2018-07-13 13:25] VITALS: BP 106/64
[2018-07-13 20:39] VITALS: BP 105/65
[2018-07-13] MEDS: traZODone HCL 50 MG TAB PO SCH (22:04)
[2018-07-14 05:24] VITALS: BP 102/43
[2018-07-14] MEDS: FLUTICASONE/VILANTEROL 100 MCG/25 MCG INH INH SCH (05:59)
[2018-07-14] MEDS: LEVOTHYROXINE SOD 0.1 MG TAB PO SCH (06:00)
[2018-07-14] MEDS: lamoTRIgine 100 MG TAB PO SCH (08:03)
[2018-07-14] MEDS: DULoxetine HCL 30 MG CAPCR PO SCH (08:03)
[2018-07-14] MEDS: TICAGRELOR 60 MG TAB PO SCH ×2 (08:03→20:31)
[2018-07-14] MEDS: predniSONE 10 MG TAB PO SCH (08:03)
[2018-07-14] MEDS: risperiDONE 0.25 MG TAB PO SCH (08:32)
[2018-07-14] MEDS: LORazepam 0.5 MG TAB PO SCH (08:32)
[2018-07-14 15:06] VITALS: BP 112/66
--- NOTE | 2018-07-14 15:06 | BHS Progress Note ---
[facility] - Subjective Progress Notes Subjective Pt seen with staff in her room, she is known to me from out-patient care at [facility]. Pt is more alert today, making eye contact and responding to me. She is still showing signs of psychosis, making a gesture like waving away someone who was not in reality there, seems guarded, whispering. She is more alert but certainly not at baseline. Tolerating medications well. She did have several BM's yesterday. She was awake all night last night after we held HS ativan and risperidone. Will try a lower dose of risperidone 0.5 mg for psychosis tonight. Trying to find right balance to treat psychosis but avoid oversedation. Will order PT consult today since pt is ambulatory at baseline-- need to get her gait assessed. Continue cymbalta at 120 mg. Suicidal Ideation: None Homicidal Ideation: None [facility] - Objective Physical Exam Vital Signs Vital Signs 07/13/18 07/14/18 07/14/18 06:34 05:24 11:00 Temp 98.6 Pulse 92 Resp 15 B/P (MAP) 102/43 (62) Pulse Ox 93 O2 Delivery Room Air O2 Flow Rate 0.5 Muscle Strength and Tone: WNL Gait and Station: Unsteady (currently grossly limited) [facility] Medications Reviewed: Side Effects, Benefits of Medication, Risks Mental Status Exam General Appearance: Unkept; No Tearful, No Psychomotor Agitation; Psychomotor Retardation; No Bizarre Mannerisms, No Tics Speech: Normal Rate, Normal Rhythm, Delayed, Slurred, Garbled Mood: Dysthmic/Depressed (likely) Affect: Sad, Withdrawn Thought Process: No Loose Associations, No Flight of Ideas Thought Content: No Suicidal Ideation, No Homicidal Ideation; Auditory Halllucinations (possible), Visual Hallucinations; No Obsessions, No Compulsions Sensorium: Other Cognition: Alert & Oriented-Person; No Alert & Oriented-Place, No Alert & Oriented-Time, No Oqkuy-Zleuqgwa-Vjvniwvhm Memory: Other (probable decline) Intelligence: Below Average (downs syndrome.) Insight Judgment: Poor (life long limitations) [facility] Assessment and Plan Llyi-gk-Uqzu Encounter Date: Jul 14, 2018 Sozv-dk-Tljl Encounter Time: 10:00 [facility] Plan: Necessary Precautions, Individual/Group Therapy, Admin/Titrate Meds, Educate Patient Tobacco Medications: Not Appropriate Condition Multpiple Antipsychotics Used: No Problems: (1) Major depression, recurrent Optional Permanent Comment: Possibly with psychosis, verses advancing dementia. Last Edited By: Homero Rodrigues on Jul 13, 2018 12:03 Status: Chronic (2) Down's syndrome Optional Permanent Comment: related conditions of advancing age and likely onset of dementia. Last Edited By: Homero Rodrigues on Jul 13, 2018 12:01 Status: Chronic Problem Qualifiers (1) Major depression, recurrent: Psychotic features: with psychotic features VILMA TRACY MD Jul 14, 2018 15:06
[2018-07-14] MEDS: traZODone HCL 50 MG TAB PO SCH (20:31)
[2018-07-14] MEDS ORDERED: traZODone HCL 50 MG TAB PO PRN (22:20)
[2018-07-15] MEDS ORDERED: risperiDONE 1 MG TAB PO ONE (00:35)
[2018-07-15] MEDS: FLUTICASONE/VILANTEROL 100 MCG/25 MCG INH INH SCH (05:52)
[2018-07-15] MEDS: LEVOTHYROXINE SOD 0.1 MG TAB PO SCH (06:04)
[2018-07-15 06:30] VITALS: BP 105/74
[2018-07-15] MEDS: TICAGRELOR 60 MG TAB PO SCH ×2 (09:00→21:49)
[2018-07-15] MEDS: DULoxetine HCL 30 MG CAPCR PO SCH (12:24)
[2018-07-15] MEDS: predniSONE 5 MG TAB PO SCH (12:24)
[2018-07-15] MEDS: lamoTRIgine 100 MG TAB PO SCH (12:24)
--- NOTE | 2018-07-15 16:58 | BHS Progress Note ---
[facility] - Subjective Progress Notes Subjective Pt seen in her room, we also met earlier with staff from [facility] and pt's brother in treatment team meeting. Pt was more alert yesterday, but then couldn't sleep last night, after having had trazodone 50 mg at 9 pm and 11 pm, and then risperdal 0.5 at 1 am. She was still up till 4 am, then slept all morning-- so still struggling with days/nights. Tonight will give trazodone 100 mg and risperdal 0.5 mg all together at 9 pm. Risperdal still indicated because still evidence of psychosis. P.O. intake improving, affect is brighter when she is awake, tolerating cymbalta well. Aiming toward Wednesday discharge if we can get her sleeping. Continue PT. Suicidal Ideation: None Homicidal Ideation: None [facility] - Objective Physical Exam Vital Signs Vital Signs 07/13/18 07/14/18 07/14/18 07/15/18 06:34 05:24 15:06 06:30 Temp 97.8 Pulse 70 Resp 15 B/P (MAP) 105/74 (84) Pulse Ox 93 O2 Delivery Room Air O2 Flow Rate 0.5 Muscle Strength and Tone: WNL Gait and Station: Unsteady (currently grossly limited) [facility] Medications Reviewed: Side Effects, Benefits of Medication, Risks Mental Status Exam General Appearance: Unkept; No Tearful, No Psychomotor Agitation; Psychomotor Retardation; No Bizarre Mannerisms, No Tics Speech: Normal Rate, Normal Rhythm, Delayed, Slurred, Garbled Mood: Dysthmic/Depressed (likely) Affect: Sad, Withdrawn Thought Process: No Loose Associations, No Flight of Ideas Thought Content: No Suicidal Ideation, No Homicidal Ideation; Auditory Halllucinations (possible), Visual Hallucinations; No Obsessions, No Compulsions Sensorium: Other Cognition: Alert & Oriented-Person; No Alert & Oriented-Place, No Alert & Oriented-Time, No Tljtk-Tckaomac-Busxbchjr Memory: Other (probable decline) Intelligence: Below Average (downs syndrome.) Insight Judgment: Poor (life long limitations) [facility] Assessment and Plan Rqsq-ea-Vacs Encounter Date: Jul 15, 2018 [id number] Encounter Time: 14:[address] [facility] Plan: Necessary Precautions, Individual/Group Therapy, Admin/Titrate Meds, Educate Patient Tobacco Medications: Not Appropriate Condition Multpiple Antipsychotics Used: No Problems: (1) Major depression, recurrent Optional Permanent Comment: Possibly with psychosis, verses advancing dementia. Last Edited By: Homero Rodrigues on Jul 13, 2018 12:03 Status: Chronic (2) Down's syndrome Optional Permanent Comment: related conditions of advancing age and likely onset of dementia. Last Edited By: Homero Rodrigues on Jul 13, 2018 12:01 Status: Chronic Problem Qualifiers (1) Major depression, recurrent: Psychotic features: with psychotic features VILMA TRACY MD Jul 15, 2018 16:58
[2018-07-15] MEDS: risperiDONE 0.25 MG TAB PO SCH (21:49)
[2018-07-15] MEDS: traZODone HCL 50 MG TAB PO SCH (21:50)
[2018-07-16] MEDS: FLUTICASONE/VILANTEROL 100 MCG/25 MCG INH INH SCH (05:47)
[2018-07-16] MEDS: LEVOTHYROXINE SOD 0.1 MG TAB PO SCH (06:17)
[2018-07-16 06:49] VITALS: BP 102/54
[2018-07-16 08:27] VITALS: BP 107/60
[2018-07-16] MEDS: TICAGRELOR 60 MG TAB PO SCH ×2 (09:00→21:42)
--- NOTE | 2018-07-16 09:10 | BHS Progress Note ---
[facility] - Subjective Progress Notes Subjective Patient seen in room. Head of bed elevated, eyes closed, nonverbal with exception of "no" in response to request to take po fluids. Staff report patient slept throughout night, PT assisting patient with ambulation Prescribed Trazadone 100 mg, Risperdal 0.5 mg @ 9 pm. Staff report she is taking in fluids and meals, will encourage out of bed daytime hours Suicidal Ideation: None Homicidal Ideation: None [facility] - Objective Physical Exam Vital Signs Medications (Trade) Dose Ordered Sig/Melvina Route PRN Reason Start Time Stop Time Status Last Admin Dose Admin Docusate Sodium (Colace(*) 100 Mg Cap (Or Equiv)) 100 mg BID PO 07/11/18 21:00 07/13/18 19:13 DC 07/13/18 08:24 Duloxetine HCl (Cymbalta 30 Mg Capcr (Or Equiv)) 90 mg QDAY PO 07/12/18 09:05 07/12/18 09:06 DC 07/12/18 09:44 Lamotrigine (LaMICtal 100 MG TAB (OR EQUIV)) 200 mg QDAY PO 07/12/18 09:00 08/11/18 08:59 07/15/18 12:24 Levothyroxine Sodium (Synthroid 0.1 Mg Tab (Or Equiv)) 0.1 mg QDAY@06 PO 07/12/18 06:00 08/11/18 05:59 07/16/18 06:17 Lorazepam (Ativan(*) 1 Mg Tab (Or Equiv)) 1 mg BID PO 07/11/18 21:00 07/12/18 10:35 DC 07/12/18 09:43 Prednisone (predniSONE 10 MG TAB) 10 mg QDAY PO 07/12/18 09:00 07/14/18 09:01 DC 07/14/18 08:03 Prednisone (predniSONE 5 MG TAB) 5 mg QDAY PO 07/15/18 09:00 07/19/18 09:01 07/15/18 12:24 Risperidone (RisperDAL 0.25 MG TAB (OR EQUIV)) 0.5 mg QHS PO 07/15/18 21:00 08/14/18 20:59 07/15/18 21:49 Risperidone (RisperDAL 1 MG TAB (OR EQUIV)) 0.5 mg NOW ONCE PO 07/15/18 00:35 07/15/18 00:38 DC 07/15/18 00:52 Ticagrelor (Brilinta) 60 mg BID PO 07/11/18 21:00 08/10/18 20:59 07/15/18 21:49 Trazodone HCl (Desyrel 50 Mg Tab (Or Equiv)) 100 mg QHS PO 07/15/18 21:00 08/14/18 20:59 07/15/18 21:50 Vital Signs Date Time Temp Pulse Resp B/P (MAP) Pulse Ox O2 Delivery O2 Flow Rate FiO2 07/16/18 08:27 98.8 65 16 107/60 (76) 90 Room Air 07/13/18 06:34 0.5 Deferred Hematology Test 07/12/18 09:14 07/13/18 05:34 Erythrocyte Sedimentation Rate 29 mm/HOUR (0-30) Vitamin B12 Level >1500 pg/mL (180-914) Folate >22.3 ng/mL (>=5.9) Troponin I < 0.012 ng/ml C-Reactive Protein 2.2 mg/dl (<1.0) Chemistry Test 07/12/18 09:14 07/13/18 05:34 Erythrocyte Sedimentation Rate 29 mm/HOUR (0-30) Vitamin B12 Level >1500 pg/mL (180-914) Folate >22.3 ng/mL (>=5.9) Troponin I < 0.012 ng/ml C-Reactive Protein 2.2 mg/dl (<1.0) Muscle Strength and Tone: WNL Gait and Station: Unsteady (currently grossly limited) [facility] Medications Reviewed: Side Effects, Benefits of Medication, Risks Mental Status Exam General Appearance: Unkept; No Tearful, No Psychomotor Agitation; Psychomotor Retardation; No Bizarre Mannerisms, No Tics Speech: Normal Rate, Normal Rhythm, Delayed, Slurred, Garbled, Other (limited response of "no" this am with interview) Mood: Dysthmic/Depressed (likely) Affect: Sad, Withdrawn Thought Process: No Loose Associations, No Flight of Ideas Thought Content: No Suicidal Ideation, No Homicidal Ideation; Auditory Halllucinations (possible), Visual Hallucinations; No Obsessions, No Compulsions; Other (unable to accurately assess due to limited response this am with questions) Sensorium: Other Cognition: Alert & Oriented-Person; No Alert & Oriented-Place, No Alert & Oriented-Time, No Ldqdh-Cqfytbpk-Wvnijrllr; Other (unable to accuately asssess due to limited response this am) Memory: Other (probable decline) Intelligence: Below Average (downs syndrome.) Insight Judgment: Poor (life long limitations) [facility] Assessment and Plan Ailf-hg-Mmlu Encounter Date: Jul 16, 2018 [id number]-[id number] Encounter Time: 09:05 [facility] Plan: Necessary Precautions, Individual/Group Therapy, Admin/Titrate Meds, Educate Patient Tobacco Medications: Not Appropriate Condition Multpiple Antipsychotics Used: No Problems: (1) Down's syndrome Optional Permanent Comment: related conditions of advancing age and likely onset of dementia. Last Edited By: Homero Rodrigues on Jul 13, 2018 12:01 Status: Chronic (2) Major depression, recurrent Optional Permanent Comment: Possibly with psychosis, verses advancing dementia. Last Edited By: Homero Rodrigues on Jul 13, 2018 12:03 Status: Chronic Condition Continue current medications and treatment Encourage P.O. intake and increased activity daytime hours Monitor electrolytes, maintain fall precautions Problem Qualifiers (1) Major depression, recurrent: Psychotic features: with psychotic features DONNA PELAYO NP Jul 16, 2018 09:10
[2018-07-16] MEDS: lamoTRIgine 100 MG TAB PO SCH (10:07)
[2018-07-16] MEDS: predniSONE 5 MG TAB PO SCH (10:07)
[2018-07-16] MEDS: DULoxetine HCL 30 MG CAPCR PO SCH (10:07)
[2018-07-16 16:46] VITALS: BP 96/63
[2018-07-16 17:00] LABS: PLATELET COUNT, AUTOMATED 193 K/uL (150-450)
[2018-07-16] MEDS: traZODone HCL 50 MG TAB PO SCH (21:42)
[2018-07-16] MEDS: risperiDONE 0.25 MG TAB PO SCH (21:42)
[2018-07-17] MEDS: FLUTICASONE/VILANTEROL 100 MCG/25 MCG INH INH SCH (05:36)
[2018-07-17] MEDS: LEVOTHYROXINE SOD 0.1 MG TAB PO SCH (05:46)
[2018-07-17 06:20] VITALS: BP 103/78
[2018-07-17 06:56] LABS: PLATELET COUNT, AUTOMATED 194 K/uL (150-450)
[2018-07-17] MEDS: lamoTRIgine 100 MG TAB PO SCH (08:24)
[2018-07-17] MEDS: DULoxetine HCL 30 MG CAPCR PO SCH (08:24)
[2018-07-17] MEDS: TICAGRELOR 60 MG TAB PO SCH ×2 (08:25→20:42)
[2018-07-17] MEDS: predniSONE 5 MG TAB PO SCH (08:25)
--- NOTE | 2018-07-17 11:48 | BHS Progress Note ---
[facility] - Subjective Progress Notes Subjective Patient seen in room. Head of bed elevated, eyes closed although awakens when spoken to, nonverbal this am Sleeping thoughout night and more awake during day, urine output low, consult w/hospitalist Dr. Elizalde, will scan bladder to identify any urinary retention Staff report patient slept throughout night, PT assisting patient with ambulation when here although remains in bed today Prescribed Trazadone 100 mg, Risperdal 0.5 mg @ 9 pm. Staff report she is taking in some fluids and meals, will encourage out of bed daytime hours Suicidal Ideation: None Homicidal Ideation: None Suicidal Ideation: None Homicidal Ideation: None [facility] - Objective Physical Exam Vital Signs Laboratory Tests 07/17/18 06:29 Laboratory Tests 07/12/18 09:14: Erythrocyte Sedimentation Rate 29, Vitamin B12 Level >1500, Folate >22.3 07/13/18 05:34: Troponin I < 0.012, C-Reactive Protein 2.2 07/16/18 16:50: Peripheral Blood Smear No, Blood Gas Patient Temperature 99.0, Venous Blood pH 7.41, Venous Blood Partial Pressure CO2 48, Venous Blood Partial Pressure O2 71, Venous Blood HCO3 30, Venous Blood Oxygen Saturation 94, Venous Blood Base Excess 6, Oxygen Liters/Minute 1.5 l 07/17/18 06:29: White Blood Count 5.4, Red Blood Count 3.49, Hemoglobin 12.7, Hematocrit 36.5, Mean Corpuscular Volume 104.4, Mean Corpuscular Hemoglobin 36.5, Mean C orpuscular Hemoglobin Concent 34.9, Red Cell Distribution Width 14.8, Platelet Count 194, Mean Platelet Volume 8.7, Neutrophils (%) (Auto) 65.2, Lymphocytes (%) (Auto) 21.3, Monocytes (%) (Auto) 10.7, Eosinophils (%) (Auto) 1.8, Basophils (%) (Auto) 1.0, Nucleated RBC Relative Count (auto) 0.0, Neutrophils # (Auto) 3.5, Lymphocytes # (Auto) 1.2, Monocytes # (Auto) 0.6, Eosinophils # (Auto) 0.1, Basophils # (Auto) 0.1, Nucleated RBC Absolute Count (auto) 0.00, Sodium Level 137, Potassium Level 4.2, Chloride Level 100, Carbon Dioxide Level 30, Blood Urea Nitrogen 29, Creatinine 0.80, Glomerular Filtration Rate Calc > 60.0, Random Glucose 82, Calcium Level 8.6, Total Bilirubin 0.5, Aspartate Amino Transf (AST/SGOT) 58, Alanine Aminotransferase (ALT/SGPT) 66, Alkaline Phosphatase 104, Total Protein 6.4, Albumin 3.1 Medications (Trade) Dose Ordered Sig/Melvina Route PRN Reason Start Time Stop Time Status Last Admin Dose Admin Docusate Sodium (Colace(*) 100 Mg Cap (Or Equiv)) 100 mg BID PO 07/11/18 21:00 07/13/18 19:13 DC 07/13/18 08:24 Duloxetine HCl (Cymbalta 30 Mg Capcr (Or Equiv)) 90 mg QDAY PO 07/12/18 09:05 07/12/18 09:06 DC 07/12/18 09:44 Lamotrigine (LaMICtal 100 MG TAB (OR EQUIV)) 200 mg QDAY PO 07/12/18 09:00 08/11/18 08:59 07/17/18 08:24 Levothyroxine Sodium (Synthroid 0.1 Mg Tab (Or Equiv)) 0.1 mg QDAY@06 PO 07/12/18 06:00 08/11/18 05:59 07/17/18 05:46 Lorazepam (Ativan(*) 1 Mg Tab (Or Equiv)) 1 mg BID PO 07/11/18 21:00 07/12/18 10:35 DC 07/12/18 09:43 Prednisone (predniSONE 10 MG TAB) 10 mg QDAY PO 07/12/18 09:00 07/14/18 09:01 DC 07/14/18 08:03 Prednisone (predniSONE 5 MG TAB) 5 mg QDAY PO 07/15/18 09:00 07/19/18 09:01 07/17/18 08:25 Risperidone (RisperDAL 0.25 MG TAB (OR EQUIV)) 0.5 mg QHS PO 07/15/18 21:00 08/14/18 20:59 07/16/18 21:42 Risperidone (RisperDAL 1 MG TAB (OR EQUIV)) 0.5 mg NOW ONCE PO 07/15/18 00:35 07/15/18 00:38 DC 07/15/18 00:52 Ticagrelor (Brilinta) 60 mg BID PO 07/11/18 21:00 08/10/18 20:59 07/17/18 08:25 Trazodone HCl (Desyrel 50 Mg Tab (Or Equiv)) 100 mg QHS PO 07/15/18 21:00 08/14/18 20:59 07/16/18 21:42 Vital Signs Date Time Temp Pulse Resp B/P (MAP) Pulse Ox O2 Delivery O2 Flow Rate FiO2 07/17/18 06:20 97.9 83 103/78 (86) 93 Oxy Mask 1.5 07/16/18 16:46 16 Allergies Uncoded Allergies perfume ( Allergy, Unknown, 02/01/14) skin sensitive to perfumed soaps and deodorants SOAP ( Adverse Reaction, Unknown, 02/01/14) Muscle Strength and Tone: WNL Gait and Station: Unsteady (currently grossly limited) [facility] Medications Reviewed: Side Effects, Benefits of Medication, Risks Mental Status Exam General Appearance: Unkept; No Tearful, No Psychomotor Agitation; Psychomotor Retardation; No Bizarre Mannerisms, No Tics Speech: Normal Rate, Normal Rhythm, Delayed, Slurred, Garbled, Other (limited response of "no" this am with interview) Mood: Dysthmic/Depressed (likely) Affect: Sad, Withdrawn Thought Process: No Loose Associations, No Flight of Ideas Thought Content: No Suicidal Ideation, No Homicidal Ideation; Auditory Halllucinations (possible), Visual Hallucinations; No Obsessions, No Compulsions; Other (unable to accurately assess due to limited response this am with questions) Sensorium: Other Cognition: Alert & Oriented-Person; No Alert & Oriented-Place, No Alert & Oriented-Time, No Grgah-Afmmjxfs-Ccrlxdqka; Other (unable to accuately asssess due to limited response this am) Memory: Other (probable decline) Intelligence: Below Average (downs syndrome.) Insight Judgment: Poor (life long limitations) Result Diagram: [id number] [facility] Assessment and Plan Lrni-yc-[employer] Encounter Date: Jul 17, 2018 Jfvj-[id number]-Rwbg Encounter Time: 10:15 [facility] Plan: Necessary Precautions, Individual/Group Therapy, Admin/Titrate Meds, Educate Patient Tobacco Medications: Not Appropriate Condition Multpiple Antipsychotics Used: No Problems: (1) Down's syndrome Optional Permanent Comment: related conditions of advancing age and likely onset of dementia. Last Edited By: Homero Rodrigues on Jul 13, 2018 12:01 Status: Chronic (2) Major depression, recurrent Optional Permanent Comment: Possibly with psychosis, verses advancing dementia. Last Edited By: Homero Rodrigues on Jul 13, 2018 12:03 Status: Chronic Condition Encourage po intake, monitor I&O Discuss low output and review labs w/hospitalist, will scan bladder to identify any urinary retention Ongoing discharge planning with [facility] facility Will assist out of bed and encourage awake during daytime hours Continue current medications and treatment Problem Qualifiers (1) Major depression, recurrent: Psychotic features: with psychotic features DONNA PELAYO NP Jul 17, 2018 11:48
--- NOTE | 2018-07-17 20:01 | RADIOLOGY IMAGING REPORT ---
FACILITY: [facility] PATIENT NAME: Keerthi Melendez : 1960 MR: [id number] V: [id number] EXAM DATE: ORDERING PHYSICIAN: DONNA PELAYO TECHNOLOGIST: Location: Patient: Keerthi Melendez : 1960 Visit/Account:[id number] Date of Sevice: 07/17/2018 HUMERUS LEFT Indication: Left arm pain. Comparison: None Available Findings: 3 views of the left humerus are submitted. No acute fracture is identified. No acute osseous abnormal ity. At the shoulder, there are changes of acromioclavicular joint osteoarthritis. Minimal changes of osteoarthritis are suggested at the elbow. IMPRESSION: 1. No acute osseous abnormality of the left humerus. Report Dictated By: Guru Dumont at 07/17/2018 7:54 PM Report E-Signed By: Guru Dumont at 07/17/2018 7:56 PM WSN:[id number]
[2018-07-17] MEDS: risperiDONE 0.25 MG TAB PO SCH (20:43)
[2018-07-17] MEDS: traZODone HCL 50 MG TAB PO SCH (20:44)
[2018-07-18] MEDS: FLUTICASONE/VILANTEROL 100 MCG/25 MCG INH INH SCH (05:34)
[2018-07-18] MEDS: LEVOTHYROXINE SOD 0.1 MG TAB PO SCH (05:37)
[2018-07-18 06:39] VITALS: BP 81/53
[2018-07-18 06:54] LABS: PLATELET COUNT, AUTOMATED 194 K/uL (150-450)
[2018-07-18] MEDS: lamoTRIgine 100 MG TAB PO SCH (08:20)
[2018-07-18] MEDS: DULoxetine HCL 30 MG CAPCR PO SCH (08:20)
[2018-07-18] MEDS: TICAGRELOR 60 MG TAB PO SCH (08:20)
[2018-07-18] MEDS: predniSONE 5 MG TAB PO SCH (08:20)
--- NOTE | 2018-07-18 12:38 | BHS Progress Note ---
BHS - Subjective Progress Notes Subjective Patient continues to be lethargic, in the absence of any side effects that could be attributed entirely to medications. Patient likely in some degree of general decline due to advancing age with trisomy 21, and likely advancing dementia. Will get chest X-ray today to look for injury to left side, and any evidence of pneumonia. Patient was scheduled from a behavioral standpoint to return to [facility] program today, but [facility] staff present were unable to meet her care needs at the [facility]. At this point, patient will need shelter care, if overall general lethargy continues. Will look at further decreasing any potential sedating medications tonight. Suicidal Ideation: None Homicidal Ideation: None BHS - Objective Physical Exam Vital Signs Vital Signs Date Time Temp Pulse Resp B/P (MAP) Pulse Ox O2 Delivery O2 Flow Rate FiO2 07/18/18 06:39 99.0 71 81/53 (62) 95 Nasal Cannula 2.0 07/17/18 14:30 18 Hematology Test 07/12/18 09:14 07/13/18 05:34 07/16/18 16:50 07/18/18 06:45 Erythrocyte Sedimentation Rate 29 mm/HOUR (0-30) Vitamin B12 Level >1500 pg/mL (180-914) Folate >22.3 ng/mL (>=5.9) Troponin I < 0.012 ng/ml C-Reactive Protein 2.2 mg/dl (<1.0) Blood Gas Patient Temperature 99.0 DEGREES Venous Blood pH 7.41 (7.31-7.41) Venous Blood Partial Pressure CO2 48 mmHg Venous Blood Partial Pressure O2 71 mmHg Venous Blood HCO3 30 mmol/L Venous Blood Oxygen Saturation 94 % Venous Blood Base Excess 6 mmol/L Oxygen Liters/Minute 1.5 l Red Blood Count 3.72 M/uL (4.17-5.56) Mean Corpuscular Volume 104.1 fL (80.0-96.0) Mean Corpuscular Hemoglobin 35.9 pg (26.0-33.0) Mean Corpuscular Hemoglobin Concent 34.5 g/dL (32.0-36.0) Red Cell Distribution Width 15.0 % (11.5-14.5) Mean Platelet Volume 8.0 fL (7.2-11.1) Neutrophils (%) (Auto) 83.7 % (39.4-72.5) Lymphocytes (%) (Auto) 7.0 % (17.6-49.6) Monocytes (%) (Auto) 8.2 % (4.1-12.4) Eosinophils (%) (Auto) 0.8 % (0.4-6.7) Basophils (%) (Auto) 0.3 % (0.3-1.4) Nucleated RBC Relative Count (auto) 0.0 /100WBC Neutrophils # (Auto) 9.3 K/uL (2.0-7.4) Lymphocytes # (Auto) 0.8 K/uL (1.3-3.6) Monocytes # (Auto) 0.9 K/uL (0.3-1.0) Eosinophils # (Auto) 0.1 K/uL (0.0-0.5) Basophils # (Auto) 0.0 K/uL (0.0-0.1) Nucleated RBC Absolute Count (auto) 0.01 K/uL Peripheral Blood Smear No Y/N Sodium Level 138 mmol/L (137-145) Potassium Level 4.1 mmol/L (3.5-5.0) Chloride Level 98 mmol/L (98-107) Carbon Dioxide Level 34 mmol/L (22-31) Blood Urea Nitrogen 20 mg/dl (7-18) Creatinine 0.80 mg/dl (0.52-1.04) Glomerular Filtration Rate Calc > 60.0 Random Glucose 83 mg/dl (75-110) Calcium Level 8.8 mg/dl (8.4-10.2) Total Bilirubin 0.6 mg/dl (0.2-1.3) Aspartate Amino Transf (AST/SGOT) 50 U/L (0-35) Alanine Aminotransferase (ALT/SGPT) 57 U/L (0-56) Alkaline Phosphatase 103 U/L (0-126) Total Protein 6.7 g/dl (6.3-8.2) Albumin 3.1 g/dl (3.5-5.0) Chemistry Test 07/12/18 09:14 07/13/18 05:34 07/16/18 16:50 07/18/18 06:45 Erythrocyte Sedimentation Rate 29 mm/HOUR (0-30) Vitamin B12 Level >1500 pg/mL (180-914) Folate >22.3 ng/mL (>=5.9) Troponin I < 0.012 ng/ml C-Reactive Protein 2.2 mg/dl (<1.0) Blood Gas Patient Temperature 99.0 DEGREES Venous Blood pH 7.41 (7.31-7.41) Venous Blood Partial Pressure CO2 48 mmHg Venous Blood Partial Pressure O2 71 mmHg Venous Blood HCO3 30 mmol/L Venous Blood Oxygen Saturation 94 % Venous Blood Base Excess 6 mmol/L Oxygen Liters/Minute 1.5 l White Blood Count 11.1 k/uL (4.5-11.0) Red Blood Count 3.72 M/uL (4.17-5.56) Hemoglobin 13.4 g/dL (12.0-16.0) Hematocrit 38.8 % (34.0-47.0) Mean Corpuscular Volume 104.1 fL (80.0-96.0) Mean Corpuscular Hemoglobin 35.9 pg (26.0-33.0) Mean Corpuscular Hemoglobin Concent 34.5 g/dL (32.0-36.0) Red Cell Distribution Width 15.0 % (11.5-14.5) Platelet Count 194 K/uL (150-450) Mean Platelet Volume 8.0 fL (7.2-11.1) Neutrophils (%) (Auto) 83.7 % (39.4-72.5) Lymphocytes (%) (Auto) 7.0 % (17.6-49.6) Monocytes (%) (Auto) 8.2 % (4.1-12.4) Eosinophils (%) (Auto) 0.8 % (0.4-6.7) Basophils (%) (Auto) 0.3 % (0.3-1.4) Nucleated RBC Relative Count (auto) 0.0 /100WBC Neutrophils # (Auto) 9.3 K/uL (2.0-7.4) Lymphocytes # (Auto) 0.8 K/uL (1.3-3.6) Monocytes # (Auto) 0.9 K/uL (0.3-1.0) Eosinophils # (Auto) 0.1 K/uL (0.0-0.5) Basophils # (Auto) 0.0 K/uL (0.0-0.1) Nucleated RBC Absolute Count (auto) 0.01 K/uL Peripheral Blood Smear No Y/N Glomerular Filtration Rate Calc > 60.0 Calcium Level 8.8 mg/dl (8.4-10.2) Total Bilirubin 0.6 mg/dl (0.2-1.3) Aspartate Amino Transf (AST/SGOT) 50 U/L (0-35) Alanine Aminotransferase (ALT/SGPT) 57 U/L (0-56) Alkaline Phosphatase 103 U/L (0-126) Total Protein 6.7 g/dl (6.3-8.2) Albumin 3.1 g/dl (3.5-5.0) Muscle Strength and Tone: WNL Gait and Station: Unsteady (currently grossly limited) [facility] Medications Reviewed: Side Effects, Benefits of Medication, Risks Mental Status Exam General Appearance: Unkept; No Tearful, No Psychomotor Agitation; Psychomotor Retardation; No Bizarre Mannerisms, No Tics Speech: No Normal Rate, No Normal Rhythm, No Normal Volume, No Normal Tone; Delayed, Slurred, Garbled, Other (limited response of "no" this am with interview) Mood: Dysthmic/Depressed (likely) Affect: Sad, Withdrawn Thought Process: No Loose Associations, No Flight of Ideas Thought Content: No Suicidal Ideation, No Homicidal Ideation; Auditory Halllucinations (possible), Visual Hallucinations; No Obsessions, No Compulsions; Other (unable to accurately assess due to limited response this am with questions) Sensorium: Other Cognition: Alert & Oriented-Person; No Alert & Oriented-Place, No Alert & Oriented-Time, No [id number]; Other (unable to accuately asssess due to limited response this am) Memory: Other (probable decline) Intelligence: Below Average (downs syndrome.) Insight Judgment: Poor (life long limitations) Result Diagram: 07/18/1845 07/18/18 0645 [facility] Assessment and Plan [id number] Encounter Date: Jul 18, 2018 [id number] Encounter Time: 12:25 [facility] Plan: Necessary Precautions, Individual/Group Therapy, Admin/Titrate Meds, Educate Patient Tobacco Medications: Not Appropriate Condition Multpiple Antipsychotics Used: No Problems: (1) Down's syndrome Optional Permanent Comment: related conditions of advancing age and likely onset of dementia. Last Edited By: Rommel Crystal on Jul 13, 2018 12:01 Status: Chronic (2) Major depression, recurrent Optional Permanent Comment: Possibly with psychosis, verses advancing dementia. Last Edited By: Rommel Crystal on Jul 13, 2018 12:03 Status: Chronic Condition 1. Chest x-ray. 2. look for transfer to F/ intermediate care. Problem Qualifiers (1) Major depression, recurrent: Psychotic features: with psychotic features ROMMEL CRYSTAL MD Jul 18, 2018 12:38
--- NOTE | 2018-07-18 12:47 | RADIOLOGY IMAGING REPORT ---
FACILITY: [facility] [place] PATIENT NAME: Keerthi Melendez : 1960 MR: [id number] V: [id number] EXAM DATE: ORDERING PHYSICIAN: ROMMEL CRYSTAL TECHNOLOGIST: Location: [facility] [place] Patient: Keerthi Melendez : 1960 Visit/Account:[id number] Date of Sevice: 07/18/2018 CHEST PA AND LAT HISTORY: Hypoxia COMPARISON: 07/11/2018. FINDINGS: Lines/tubes: None. Lungs/pleura: Inferior right upper lobe consolidation with additional mild patchy opacities in the r ight lung. Possible small right pleural effusion. No pneumothorax. Heart: Negative. Mediastinum: Negative. Bony structures/body wall: Degenerative changes in the spine with convex rightward curvature. IMPRESSION: Inferior right upper lobe consolidation with additional mild patchy opacities in the righ t lung and possible small right pleural effusion suspicious for pneumonia or aspiration. Pulmonary em bolism with infarction could also be considered in the appropriate clinical setting. Report Dictated By: Adeel Freire MD at 07/18/2018 12:41 PM Report E-Signed By: Adeel Freire MD at 07/18/2018 12:43 PM WSN:[id number]
[2018-07-18 12:55] VITALS: BP 105/59
[2018-07-18] MEDS ORDERED: LEVO100T95 PO (13:18)
[2018-07-18] MEDS ORDERED: TRAM-627 PO (13:20)
[2018-07-18] MEDS ORDERED: FLUT1AER INH (13:22)
[2018-07-18 14:20] VITALS: BP 91/52
--- NOTE | 2018-07-19 08:55 | SCHAAF DISCHARGE ---
DATE OF ADMISSION: July 11, 2018. DATE OF DISCHARGE: July 18, 2018 and immediate admission to medical floor. ATTENDING PHYSICIAN Homero Rodrigues MD The patient was seen on July 18, 2018 at approximately 11:00 hours for note concerning this dictation. FINAL DIAGNOSES 1. New onset pneumonia. 2. Down syndrome with likely onset of dementia. 3. History of major depression, severe with psychotic features. 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 She is a 58-year-old female suffering from Down syndrome. The patient was noted to have a significant departure from baseline at the [facility] program over the preceding 1-2 months. This ultimately led to patient's admission for altered level of consciousness and hypoxia and obtunded nature. The patient was last noted on [facility] to becoming more and more agitated, exhibiting psychotic features. The patient was holding onto odonnell and whispering to them. Medications including Risperdal and Ativan were increased and titrated. The patient was brought to the Behavioral Health Unit. On the Behavioral Health Unit, during initial admission, the patient was obtunded and near unresponsive. Risperdal was decreased, Ativan was decreased as well. The patient's Cymbalta was increased for major depression symptoms. The patient was continued on other home medications. The patient made minimal improvement. No gross agitation was seen on the unit. The patient was planning on discharging back to the [facility] program, however, when [facility] staff arrived, the patient had returned to a very lethargic state and they were unable to meet her needs at [facility]. It was at this time, the patient was found to have a new onset developing pneumonia. Please refer to electronic record. At that time, the patient was technically discharged from the Behavioral Health Unit and was admitted to the medical floor for further observation and management. PHYSICAL EXAMINATION Please see emergency room notes and medical floor notes. Vital signs at the time of admission to [facility] Unit: Temperature 97, pulse 88, respiratory rate 16, blood pressure 114/87 and pulse oximetry 88% on nasal cannula 1 liter. Vital signs at the time of discharge from [facility] Unit: Temperature 99.1, pulse 77, respiratory rate 16, blood pressure 91/52 and pulse oximetry 96% on nasal cannula at 1.5 liters. LABORATORY DATA On [facility] on 07/18/18 noted a slight elevation in WBC at 11.1, RBCs low and consistently so at 3.7, MCV and MCH notably elevated at 104.1 and 35.9. Chemistry panel noted for elevated carbon dioxide at 34, BUN slightly elevated at 20, creatinine 0.8 in normal range, AST and ALT mildly elevated at 50 and 57 respectively. Albumin 3.1 and low. Vitamin B12 is noted to be greater than 1500 and folate greater than 22.3. ESR 29. MENTAL STATUS EXAMINATION Unable to fully evaluate at time of transfer to medical floor. The patient obtunded, psychomotor retardation evident. No gross features of psychosis evident and no gross features of chronic pain. Noncommunicative with insight and judgment extremely limited due to current and chronic condition. RESULTS OF TESTING Imaging: Chest x-ray was notable for inferior right upper lobe consolidation with additional mild patchy opacities in the right lung and possibly small right pleural effusion suspicious for pneumonia or aspiration. Laboratory data: See above. CONSULTATIONS The patient was seen by hospitalist staff and eventually transferred to medical floor treatment. TREATMENT Patient received medications, and was unable to participate in individual and group therapy. HOSPITAL COURSE Risperdal was initially decreased at time discharge ending at 0.5 mg q nightly only with Cymbalta 120 mg q am and Ativan was discontinued. Trazodone was at 100 q nightly at time of discharge. CONDITION OF PATIENT ON DISCHARGE Appropriate for subsequent transfer to the medical floor for further treatment of developing pneumonia. Will continue to follow on medical floor for psychiatric concerns. If the patient's condition does not improve, she will likely need to transfer to extended care unit for further preparation for custodial placement. DISPOSITION The patient again transferred to the medical floor, discharged from [facility]. She would follow up there. Psych would continue to follow. DISCHARGE MEDICATIONS 1. Breo Ellipta 1 puff daily. 2. Brilinta 60 mg b.i.d. The patient's own medication. 3. Cymbalta 120 mg daily. 4. Trazodone 100 mg at bedtime. 5. Lamictal 200 mg daily which has been a terminal make up operator medication for this patient. 6. Risperdal 0.5 mg at bedtime. 7. Synthroid 0.1 mg daily. 8. Ultram 50 mg q 6 hours p.r.n. for pain. The patient would continue to follow up with PT, remain on nasal cannula oxygen. Risk, benefits, and alternatives of the above discharge plan were discussed, informed consent was given by [facility] facility staff and treating outpatient provider, as well as the patient's older brother at time of discharge. HUY
[2018-07-19] MEDS ORDERED: DOCU50LI30 PO (11:09)
[2018-07-19] MEDS ORDERED: AZIT100S21 PO (11:09)
[2018-07-19] MEDS ORDERED: TRAZ50TA34 PO (11:09)
[2018-07-19] MEDS ORDERED: CEFD125S23 PO (11:09)
[2018-07-19] MEDS ORDERED: TRAM-420 PO (11:09)
[2018-07-19] MEDS ORDERED: RISP0.2548 PO (11:09)
== END 2018-07-18 13:55 | disposition still patient (30) | DRG 885 ==
LOC: BHS 16:59
PROVIDERS: ADMIT Psychiatry & Neurology Psychiatry; ATTEND Psychiatry & Neurology Psychiatry
DX: F32.3 Major depressive disorder, single episode, severe with psychotic features (principal); J18.9 Pneumonia, unspecified organism; F03.91 Unspecified dementia, unspecified severity, with behavioral disturbance; F05 Delirium due to known physiological condition; Q90.9 Down syndrome, unspecified
CPT/HCPCS: 36415; 71045; 71046; 71275; 80305; 80320; 80329; 81001; 82040; 82247; 82310; 82374; 82435; 82565; 82607; 82746; 82803; 82947; 83605; 83735; 83880; 84075; 84132; 84155; 84295; 84439; 84443; 84450; 84460; 84481; 84484; 84520; 85025; 85379; 85651; 86140; 87040; 93005; 93970; 94640; 96361; 96374; 96375; 97162; 99284; A4353; J2930; J7030; J7050; J7512; Q9967

== ENCOUNTER → 2018-07-22 | Outpatient (REF) | payer MEDICARE, MEDICAID ==
[2017-09-03 08:54] VITALS: BMI 36.1
[~2018-07-22] MED LIST changes: +AZIT100S21 PO; +CARB15DR76 OP; +CEFD125S23 PO; +DOCU50LI30 PO; +DULO30CA35 PO; +LEVO100T95 PO; +RISP0.2548 PO; +SODI3.5O14 OP; +TRAM-627 PO
[2018-07-22 08:23] LABS: PLATELET COUNT, AUTOMATED 292 K/uL (150-450)
== END ==
LOC: ZZLCC 07:33
PROVIDERS: ATTEND Nurse Practitioner Family
DX: J18.9 Pneumonia, unspecified organism (principal); Z79.899 Other long term (current) drug therapy
CPT/HCPCS: 82040; 82247; 82310; 82374; 82435; 82565; 82947; 84075; 84132; 84155; 84295; 84450; 84460; 84520; 85025

== ENCOUNTER → 2018-08-03 | Outpatient (CLI) | payer OTHER, MEDICARE, MEDICAID ==
[2017-09-03 08:54] VITALS: BMI 36.1
--- NOTE | 2018-08-03 15:45 | RADIOLOGY IMAGING REPORT ---
FACILITY: [facility] [place] PATIENT NAME: Keerthi Melendez : 1960 MR: [id number] V: [id number] EXAM DATE: ORDERING PHYSICIAN: BILL MCKNIGHT TECHNOLOGIST: Location: [facility] Patient: Keerthi Melendez : 1960 Visit/Account:[id number] Date of Sevice: 08/03/2018 CHEST PA AND LAT INDICATION: Pneumonia COMPARISON: July 18, 2018 FINDINGS: Two frontal views and a lateral view obtained. The cardiac silhouette is normal in size. No pneumothorax. Thin band of scarring remains in the right midlung. Previously seen consolidatio n in this area has resolved. Otherwise clear lungs. Convexity left unchanged lumbar scoliosis. No acute osseous abnormality. No pleural fluid. Multilevel thoracic spine disc space degeneration note d. IMPRESSION: Resolution of previously seen right midlung consolidation. Minimal curvilinear scarring remains in the right midlung in the region of previously seen consolidat ion. Report Dictated By: Wellington Gomez MD at 08/03/2018 3:38 PM Report E-Signed By: Wellington Gomez MD at 08/03/2018 3:41 PM WSN:[id number]
== END ==
LOC: RAD 15:10
PROVIDERS: ATTEND Nurse Practitioner Family
DX: J18.9 Pneumonia, unspecified organism (principal)
CPT/HCPCS: 71046

== ENCOUNTER → 2018-09-26 | Outpatient (CLI) | payer MEDICARE, MEDICAID ==
[2017-09-03 08:54] VITALS: BMI 36.1
[~2018-09-26] MED LIST changes: +PRAZ1CAP26 PO
[2018-09-26 15:31] LABS: PLATELET COUNT, AUTOMATED 253 K/uL (150-450)
== END ==
LOC: LAB 14:59
PROVIDERS: ATTEND Nurse Practitioner Family
DX: E03.9 Hypothyroidism, unspecified (principal); R53.83 Other fatigue
CPT/HCPCS: 36415; 82040; 82247; 82310; 82374; 82435; 82565; 82947; 84075; 84132; 84155; 84295; 84443; 84450; 84460; 84520; 85025

== ENCOUNTER → 2018-11-24 | Outpatient (CLI) | payer MEDICARE, MEDICAID ==
[2017-09-03 08:54] VITALS: BMI 36.1
[~2018-11-24] MED LIST changes: +LEVO75TA73 PO; +LEVO88TA45 PO; +LIDO76.5 TOP
== END ==
LOC: LAB 14:11
PROVIDERS: ATTEND Nurse Practitioner Family
DX: E03.9 Hypothyroidism, unspecified (principal)
CPT/HCPCS: 36415; 84443

== ENCOUNTER 2018-12-05 01:08 | Emergency (ER) | payer MEDICARE, MEDICAID ==
[2017-09-03 08:54] VITALS: Wt 63.0 kg
--- NOTE | 2018-12-05 01:17 | ER Report ---
History and Physical Time Seen By MD: 01:16 HPI/ROS CHIEF COMPLAINT: Altered mental status,? Behavior problem HISTORY OF PRESENT ILLNESS: 58-year-old female brought by EMS from [facility] facility where she is cared for. She has down syndromes and likely some dementia. Staff members note that she seemed withdrawn and catatonic. Patient was brought in by EMS and transferred to the bed. She is hunched over forward. Patient refuses to lie back. She states no and a clear voice. When you ask her to lie back and attempt to pull her shoulders, back. Patient assisted getting undressed out of her clothing and into a gown by moving her arms and appropriate manners. Staff members are concerned that she may have some sort of infection or something causing her to be catatonic. Usually she somewhat feisty and agitated. Nursing staff states that she's been throwing herself out of her wheelchair onto the floor. She does not appear to have sustained any injury. Patient was seen in internal medicine clinic, approximate 2 weeks ago on 11/25/18. REVIEW OF SYSTEMS: Respiratory: No cough, no dyspnea. Cardiovascular: No chest pain, no palpitations. Gastrointestinal: No vomiting, no abdominal pain. Musculoskeletal: No back pain. Allergies: Uncoded Allergies: perfume (Allergy, Unknown, 02/01/14) skin sensitive to perfumed soaps and deodorants SOAP (Adverse Reaction, Unknown, 02/01/14) Home Meds Active Scripts Lidocaine HCl (Aspercreme) 4 % Cream..g., 1 ROB TOP BID for 30 Days, #76.5 GM 5 Refills Prov:BILL MCKNIGHT APRN-C 11/25/18 Levothyroxine Sodium (LEVOTHYROXINE SODIUM) 75 Mcg Tablet, 1 TAB PO QDAY, #30 TAB 2 Refills Prov:BILL MCKNIGHT APRNP-C 11/25/18 Acetaminophen (ACETAMINOPHEN) 500 Mg Tablet, 2 TAB PO TID, #90 TAB 5 Refills Prov:BILL MCKNIGHT APRN-C 09/26/18 Docusate Sodium (DOCU LIQUID) 50 Mg/5 Ml Liquid, 100 MG PO BID for 30 Days, #1 BOTTLE 2 Refills Prov:BILL MCKNIGHT APRN-C 09/02/18 Prazosin Hcl (PRAZOSIN HCL) 1 Mg Capsule, 1 CAP PO QHS, #30 CAPSULE 5 Refills Prov:BILL MCKNIGHT APRN CLAIMS ACCOUNT MANAGER-C 08/30/18 Ticagrelor (Brilinta) 60 Mg Tablet, 1 TAB PO BID, #60 TAB 5 Refills Prov:BILL MCKNIGHT APRN CLAIMS ACCOUNT MANAGER-C 08/17/18 Nystatin 100,000 Unit/Gm Top Powder (NYSTATIN 100,000 UNIT/GM TOP POWDER) 15 Gm Powder, 15 GM TP BID, #1 TUBE 0 Refills Apply to left ingunial area twice per day as needed for fungal infection Prov:LIZZETTE ALCOCER MD 06/07/18 Reported Medications Sodium Chloride (RAUL-128) 3.5 Gm Oint...g., 3.5 GM OP QDAY 07/12/18 Carboxymethylcellulose Sodium (REFRESH LIQUIGEL) 15 Ml Drp.lq.gel, 15 ML OP QDAY 07/12/18 Triamcinolone Acetonide 0.1% Oint 15 Gm Tube (TRIAMCINOLONE ACETONIDE 0.1% 15 GM TUBE) 15 Gm Oint...g., 15 GM TP PRN, TUBE 07/11/18 Guaifenesin (ROBAFEN) 100 Mg/5 Ml Liquid, 20 ML PO Q4-6H PRN for CONGESTION 07/11/18 Vit C/Honey Ac/Lut/Copper/Znox (PRESERVISION LUTEIN SOFTGEL) 1 Each Capsule, 1 EACH PO BID, CAPSULE 07/11/18 Skin Cleanser (PERIFRESH) 3,840 Ml Cleanser, 3840 ML TP BID 07/11/18 Chlorhexidine Gluconate (HIBICLENS) 118 Ml Liquid, 118 ML TP DAILY 07/11/18 Menthol (BIOFREEZE) 118 Ml Gel..ml., PRN 07/11/18 Bacitracin Zinc (BACITRACIN ZINC) 120 Gm Oint...g., 120 GM TP PRN 07/11/18 Loperamide Hcl (ANTI-DIARRHEAL) 2 Mg Capsule, 2 TAB PO PRN, CAPSULE 07/11/18 Parab/Cet Alc/Stryl Alc/Pg/Sls (CETAPHIL DAILY FACIAL CLEANSER) 473 Ml Cleanser, 1 ROB TP DAILY 08/24/17 Sodium Fluoride (PREVIDENT 5000 PLUS) 51 Gm Cream..g., 1 ROB DT BID 08/24/17 Gly/Dimeth/Petrolat,Wht/Water (CETAPHIL MOISTURIZING CREAM) 85 Gm Cream..g., 1 ROB TP BID 08/24/17 Multivitamin (MULTIVITAMINS) 1 Each Capsule, 1 EACH PO QDAY, CAPSULE 08/23/17 Eyelid Cleanser Combination #5 (OCUSOFT LID SCRUB) 1 Each Med..pad, 1 EACH TP QDAY 08/23/17 Fluticasone/Vilanterol 100/25 Mcg/Inh (BREO ELLIPTA 100/25 MCG) 1 Each Aer.pow.ba, 1 INH INH QDAY, INH 08/23/17 Polyvinyl Alcohol/Povidone/Pf (REFRESH CLASSIC EYE DROPS) 1 Each Droperette, 1 DROP OP 6 times a day 08/23/17 Petrolatum,White (AQUAPHOR) 99 Gm Oint...g., 99 GM TP QDAY 08/23/17 Talc/Cellulos/Chloroxy/Aldioxa (ZEASORB POWDER) 71 Gm Powder, 71 GM TP BID 08/23/17 Lamotrigine (LAMOTRIGINE) 200 Mg Tab.er.24, 200 MG PO QDAY 08/23/17 Past Medical/Surgical History Past Medical History Neurologic: Reports hx of: seizures other neurologic history (epilepsy) HEENT: Reports hx of: cataracts (Congenital right eye, Corneal erosion) Cardiovascular: Reports hx of: DVT other CV history (MITRAL AND AORTIC VALVE DISEASE) Respiratory: Reports hx of: other respiratory history (HYPOXIA WITH RAD) Gastrointestinal: Reports hx of: other GI history (ESOPHAGEAL REFLUX ) Psychiatric: Reports hx of: depression other psychiatric history (DOWN'S SYNDROME) Endocrine: Reports hx of: hypothyroidism (PRIMARY) obesity other endocrine history (Graves disease) Reviewed Nurses Notes: Yes Old Medical Records Reviewed: Yes Hx Smoking: No Smoking Status: Never Smoker Exposure to Second Hand Smoke?: No Hx Substance Use Disorder: No Hx Alcohol Use: No Constitutional Vital Sign - Last 24 Hours 12/05/18 12/05/18 12/05/18 12/05/18 01:08 01:10 01:16 01:23 Temp 97.5 Pulse ??? 71 75 Resp 18 B/P (MAP) 126/87 126/87 (100) Pulse Ox 92 93 O2 Delivery Nasal Cannula 12/05/18 12/05/18 12/05/18 12/05/18 01:38 01:53 02:08 02:15 Pulse 59 75 59 B/P (MAP) 102/54 (70) Pulse Ox 93 94 90 12/05/18 12/05/18 12/05/18 12/05/18 02:23 02:30 02:38 02:53 Pulse 57 77 64 B/P (MAP) 84/47 (59) Pulse Ox 88 94 89 Physical Exam Vital signs stable, afebrile, pulse ox normal General Appearance: The patient is alert, has no immediate need for airway p rotection and no current signs of toxicity. No acute distress, slumped over anterior recess being laid back flat, patient grasping the rails on the ambulance gurney HEENT: Patient will not cooperate for an examination Respiratory: Chest is non tender, lungs are clear to auscultation. Cardiac: regular rate and rhythm Gastrointestinal: Abdomen is soft and non tender, no masses, bowel sounds normal. Musculoskeletal: Neck: Neck is supple and non tender. No lymphadenopathy Extremities have full range of motion and are non tender. No edema of lower extremities Skin: No rashes or lesions. DIFFERENTIAL DIAGNOSIS: After history and physical exam differential diagnosis was considered for altered mental status including but not limited to hypoglycemia, infectious process, electrolyte abnormality, behavior problem head injury and intoxicants. Medical Decision Making Data Points Result Diagram: 12/05/18 0138 12/05/18 0138 Laboratory Hematology Test 12/05/18 01:38 Red Blood Count 3.91 M/uL (4.17-5.56) Mean Corpuscular Volume 103.2 fL (80.0-96.0) Mean Corpuscular Hemoglobin 35.5 pg (26.0-33.0) Mean Corpuscular Hemoglobin Concent 34.4 g/dL (32.0-36.0) Red Cell Distribution Width 14.1 % (11.5-14.5) Mean Platelet Volume 8.1 fL (7.2-11.1) Neutrophils (%) (Auto) 67.3 % (39.4-72.5) Lymphocytes (%) (Auto) 20.7 % (17.6-49.6) Monocytes (%) (Auto) 7.9 % (4.1-12.4) Eosinophils (%) (Auto) 1.4 % (0.4-6.7) Basophils (%) (Auto) 2.7 % (0.3-1.4) Nucleated RBC Relative Count (auto) 0.0 /100WBC Neutrophils # (Auto) 3.4 K/uL (2.0-7.4) Lymphocytes # (Auto) 1.0 K/uL (1.3-3.6) Monocytes # (Auto) 0.4 K/uL (0.3-1.0) Eosinophils # (Auto) 0.1 K/uL (0.0-0.5) Basophils # (Auto) 0.1 K/uL (0.0-0.1) Nucleated RBC Absolute Count (auto) 0.00 K/uL Peripheral Blood Smear No Y/N Sodium Level 138 mmol/L (137-145) Potassium Level 3.8 mmol/L (3.5-5.0) Chloride Level 104 mmol/L (98-107) Carbon Dioxide Level 27 mmol/L (22-31) Blood Urea Nitrogen 25 mg/dl (7-18) Creatinine 0.90 mg/dl (0.52-1.04) Glomerular Filtration Rate Calc > 60.0 Random Glucose 85 mg/dl (75-110) Calcium Level 9.2 mg/dl (8.4-10.2) Total Bilirubin 0.3 mg/dl (0.2-1.3) Aspartate Amino Transf (AST/SGOT) 81 U/L (0-35) Alanine Aminotransferase (ALT/SGPT) 41 U/L (0-56) Alkaline Phosphatase 127 U/L (0-126) Total Protein 7.4 g/dl (6.3-8.2) Albumin 3.8 g/dl (3.5-5.0) Chemistry Test 12/05/18 01:38 White Blood Count 5.1 k/uL (4.5-11.0) Red Blood Count 3.91 M/uL (4.17-5.56) Hemoglobin 13.9 g/dL (12.0-16.0) Hematocrit 40.3 % (34.0-47.0) Mean Corpuscular Volume 103.2 fL (80.0-96.0) Mean Corpuscular Hemoglobin 35.5 pg (26.0-33.0) Mean Corpuscular Hemoglobin Concent 34.4 g/dL (32.0-36.0) Red Cell Distribution Width 14.1 % (11.5-14.5) Platelet Count 207 K/uL (150-450) Mean Platelet Volume 8.1 fL (7.2-11.1) Neutrophils (%) (Auto) 67.3 % (39.4-72.5) Lymphocytes (%) (Auto) 20.7 % (17.6-49.6) Monocytes (%) (Auto) 7.9 % (4.1-12.4) Eosinophils (%) (Auto) 1.4 % (0.4-6.7) Basophils (%) (Auto) 2.7 % (0.3-1.4) Nucleated RBC Relative Count (auto) 0.0 /100WBC Neutrophils # (Auto) 3.4 K/uL (2.0-7.4) Lymphocytes # (Auto) 1.0 K/uL (1.3-3.6) Monocytes # (Auto) 0.4 K/uL (0.3-1.0) Eosinophils # (Auto) 0.1 K/uL (0.0-0.5) Basophils # (Auto) 0.1 K/uL (0.0-0.1) Nucleated RBC Absolute Count (auto) 0.00 K/uL Peripheral Blood Smear No Y/N Glomerular Filtration Rate Calc > 60.0 Calcium Level 9.2 mg/dl (8.4-10.2) Total Bilirubin 0.3 mg/dl (0.2-1.3) Aspartate Amino Transf (AST/SGOT) 81 U/L (0-35) Alanine Aminotransferase (ALT/SGPT) 41 U/L (0-56) Alkaline Phosphatase 127 U/L (0-126) Total Protein 7.4 g/dl (6.3-8.2) Albumin 3.8 g/dl (3.5-5.0) EKG/Imaging EKG Interpretation 12 lead EK Rhythm: normal sinus rhythm [place]: normal QRS: normal ST segments: normal, no evidence of ischemia or dysrhythmia Imaging X-ray: Single view portable chest x-ray was obtained. I viewed the images myself on the PACS system. My interpretation of the images is: No infiltrate, no effusion, elevation of the right hemidiaphragm noted. The radiologist interpretation had no clinically significant variation from this interpretation. ED Course/Re-evaluation Clinical Indication for ER IV: IV Access ED Course Patient was admitted to an examination room. H&P was done. The differential diagnoses was considered. Patient seems withdrawn and primarily behavioral in nature. She says no when you try to set her back to complete her examination. Patient is stable vital signs, is afebrile. Chest x-ray shows no obvious infiltrate. Her laboratory studies are normal. She would not cooperate for urinalysis. I do not think Villanueva catheterization is warranted with a normal white blood cell count and no fever. Patient's not any medications other than lamotrigine that would cause mental status changes. Patient will be returned to our facility. Hopefully her behavior improves. I spoke with the caregiver present here in the emergency department. She is advised to follow-up with primary internal medicine clinic if unimproved in 2-3 days, Decision to Disposition Date: December 05, 2018 Decision to Disposition Time: 02:08 Depart Departure Latest Vital Signs Vital Signs Date Time Temp Pulse Resp B/P (MAP) Pulse Ox O2 Delivery O2 Flow Rate FiO2 12/05/18 02:53 64 89 12/05/18 02:30 84/47 (59) 12/05/18 01:10 97.5 18 Nasal Cannula Impression: Primary Impression: Behavioral change Additional Impressions: Down's syndrome Seizure disorder Condition: Improved Disposition: HOME OR SELF-CARE Referrals: BILL MCKNIGHT APRN CLAIMS ACCOUNT MANAGER-C (PCP) Patient Instructions: GENERAL ER DISCHARGE INSTRUCTIONS Additional Instructions: Follow-up with primary care if unimproved in 2-3 days Return to the ER for any worsening Problem Qualifiers RADHA SNYDER DO December 05, 2018 01:16
--- NOTE | 2018-12-05 01:39 | EKG ---
FACILITY: [facility] - [place] PATIENT NAME: WALTER CADENA : [id number] MR: [id number] V: [id number] EXAM DATE: ORDERING PHYSICIAN: RADHA SNYDER TECHNOLOGIST: IRAM Test Reason : ALTERD MENTAL STATUS Blood Pressure : / mmHG Vent. Rate : 074 BPM Atrial Rate : 074 BPM P-R Int : 142 ms QRS Dur : 088 ms QT Int : 418 ms P-R-T Axes : 059 048 046 degrees QTc Int : 463 ms Normal sinus rhythm Normal ECG When compared with ECG of 13-JUL-2018 06:42, No significant change was found Confirmed by CORDELL WOODS ([id number]) on 12/05/2018 5:42:13 AM Referred By: Confirmed By:CORDELL WOODS
[2018-12-05 01:47] LABS: PLATELET COUNT, AUTOMATED 207 K/uL (150-450)
[2018-12-05 02:30] VITALS: BP 84/47
--- NOTE | 2018-12-05 02:40 | RADIOLOGY IMAGING REPORT ---
FACILITY: [facility] - [place] PATIENT NAME: Keerthi Melednez : 1960 MR: [id number] V: [id number] EXAM DATE: ORDERING PHYSICIAN: RADHA SNYDER TECHNOLOGIST: [place] [facility] [place] Keerthi Melendez : 1960 Visit/Account:[id number] Date of Sevice: 12/05/2018 PORTABLE CHEST: Indication: Altered mental status. Technique: A single frontal film was obtained. Comparison: 08/03/2018 Skeletal and soft tissue structures: Intact and unchanged. Heart and mediastinum: Stable. Lung j[place]: Hypoexpanded. No focal consolidation or volume loss is identified. Pleural spaces: Unremarkable. Impression: No acute process is clearly identified. Report Dictated By: Dion Reese MD at 12/05/2018 2:34 AM Report E-Signed By: Dion Reese MD at 12/05/2018 2:36 AM WSN:[id number]
== END 2018-12-05 02:55 | disposition home or self-care (01) ==
LOC: ER 01:23
DX: R41.82 Altered mental status, unspecified (principal); Q90.9 Down syndrome, unspecified; G40.909 Epilepsy, unspecified, not intractable, without status epilepticus
CPT/HCPCS: 71045; 82040; 82247; 82310; 82374; 82435; 82565; 82947; 84075; 84132; 84155; 84295; 84450; 84460; 84520; 85025; 93005; 99284

== ENCOUNTER → 2018-12-05 | Outpatient (CLI) | payer MEDICARE, MEDICAID ==
[2017-09-03 08:54] VITALS: BMI 36.1
== END ==
LOC: AMB 00:53
PROVIDERS: ATTEND Nurse Practitioner
DX: R41.82 Altered mental status, unspecified (principal)
CPT/HCPCS: A0425; A0427

== ENCOUNTER → 2018-12-05 | Outpatient (CLI) | payer MEDICARE, MEDICAID ==
[2017-09-03 08:54] VITALS: BMI 36.1
== END ==
LOC: AMB 02:58
PROVIDERS: ATTEND Nurse Practitioner
DX: G31.84 Mild cognitive impairment of uncertain or unknown etiology (principal); R53.1 Weakness
CPT/HCPCS: A0425; A0428

== ENCOUNTER 2018-12-28 10:22 | Emergency (ER) | payer MEDICARE, MEDICAID ==
[2017-09-03 08:54] VITALS: Wt 59.0 kg
[~2018-12-28 10:22] MED LIST changes: -TRAZ50TA34 PO; +TRAZ50TA52 PO; +[UNRECOGNIZED DRUG - OTHER]
[2018-12-28] MEDS ORDERED: KETAMINE HCL 500 MG/5 ML VIAL IM ONE (10:50)
--- NOTE | 2018-12-28 11:00 | ER Report ---
History and Physical Time Seen By MD: 10:30 Hx. of Stated Complaint: PATIENT FELL FORWARD OUT OF HER WHEELCHAIR. SHE FELL ONTO THE FLOOR. SHE HAS A LACERATION ON HER RIGHT EYELID HPI/ROS CHIEF COMPLAINT: Fall laceration HISTORY OF PRESENT ILLNESS: 58-year-old developed immediate disabled individual comes in the emergency department shortly was sitting at a table eating fell asleep fell forward hitting her right eyebrow area with a small linear laceration. No loss of consciousness she was back to baseline immediately complaining of pain in her right shoulder right upper extremity is underwent for chronic A. fib patient cannot give any history at this time stating that it hurts everywhere unable to get a true accurate information due to the developmental disabled status and there were no witnesses reportedly for the incident REVIEW OF SYSTEMS: Respiratory: No cough, no dyspnea. Cardiovascular: No chest pain, no palpitations. Gastrointestinal: No vomiting, no abdominal pain. Musculoskeletal: No back pain. Remainder of the 14 system rev: Yes Allergies: Uncoded Allergies: perfume (Allergy, Unknown, 02/01/14) skin sensitive to perfumed soaps and deodorants SOAP (Adverse Reaction, Unknown, 02/01/14) Home Meds Active Scripts Acetaminophen (ACETAMINOPHEN) 500 Mg Tablet, 2 TAB PO TID, #90 TAB 5 Refills Prov:BILL MCKNIGHT APRN-Adolfo 12/16/18 [Transport Wheelchair] No Conflict Check Prov:BILL MCKNIGHT APRN 12/14/18 Lidocaine HCl (Aspercreme) 4 % Cream..g., 1 ROB TOP BID for 30 Days, #76.5 GM 5 Refills Prov:BILL MCKNIGHT APRN 11/25/18 Levothyroxine Sodium (LEVOTHYROXINE SODIUM) 75 Mcg Tablet, 1 TAB PO QDAY, #30 TAB 2 Refills Prov:BILL MCKNIGHT APRN 11/25/18 Prazosin Hcl (PRAZOSIN HCL) 1 Mg Capsule, 1 CAP PO QHS, #30 CAPSULE 5 Refills Prov:BILL MCKNIGHT APRN 08/30/18 Ticagrelor (Brilinta) 60 Mg Tablet, 1 TAB PO BID, #60 TAB 5 Refills Prov:BILL MCKNIGHT APRNC 08/17/18 Nystatin 100,000 Unit/Gm Top Powder (NYSTATIN 100,000 UNIT/GM TOP POWDER) 15 Gm Powder, 15 GM TP BID, #1 TUBE 0 Refills Apply to left ingunial area twice per day as needed for fungal infection Prov:LIZZETTE ALCOCER MD 06/07/18 Reported Medications Sodium Chloride (RAUL-128) 3.5 Gm Oint...g., 3.5 GM OP QDAY 07/12/18 Carboxymethylcellulose Sodium (REFRESH LIQUIGEL) 15 Ml Drp.lq.gel, 15 ML OP QDAY 07/12/18 Triamcinolone Acetonide 0.1% Oint 15 Gm Tube (TRIAMCINOLONE ACETONIDE 0.1% 15 GM TUBE) 15 Gm Oint...g., 15 GM TP PRN, TUBE 07/11/18 Guaifenesin (ROBAFEN) 100 Mg/5 Ml Liquid, 20 ML PO Q4-6H PRN for CONGESTION 07/11/18 Vit C/Honey Ac/Lut/Copper/Znox (PRESERVISION LUTEIN SOFTGEL) 1 Each Capsule, 1 EACH PO BID, CAPSULE 07/11/18 Skin Cleanser (PERIFRESH) 3,840 Ml Cleanser, 3840 ML TP BID 07/11/18 Chlorhexidine Gluconate (HIBICLENS) 118 Ml Liquid, 118 ML TP DAILY 07/11/18 Menthol (BIOFREEZE) 118 Ml Gel..ml., PRN 07/11/18 Bacitracin Zinc (BACITRACIN ZINC) 120 Gm Oint...g., 120 GM TP PRN 07/11/18 Loperamide Hcl (ANTI-DIARRHEAL) 2 Mg Capsule, 2 TAB PO PRN, CAPSULE 07/11/18 Parab/Cet Alc/Stryl Alc/Pg/Sls (CETAPHIL DAILY FACIAL CLEANSER) 473 Ml Cleanser, 1 ROB TP DAILY 08/24/17 Sodium Fluoride (PREVIDENT 5000 PLUS) 51 Gm Cream..g., 1 ROB DT BID 08/24/17 Gly/Dimeth/Petrolat,Wht/Water (CETAPHIL MOISTURIZING CREAM) 85 Gm Cream..g., 1 ROB TP BID 08/24/17 Multivitamin (MULTIVITAMINS) 1 Each Capsule, 1 EACH PO QDAY, CAPSULE 08/23/17 Eyelid Cleanser Combination #5 (OCUSOFT LID SCRUB) 1 Each Med..pad, 1 EACH TP QDAY 08/23/17 Fluticasone/Vilanterol 100/25 Mcg/Inh (BREO ELLIPTA 100/25 MCG) 1 Each Aer.pow.ba, 1 INH INH QDAY, INH 08/23/17 Polyvinyl Alcohol/Povidone/Pf (REFRESH CLASSIC EYE DROPS) 1 Each Droperette, 1 DROP OP 6 times a day 08/23/17 Petrolatum,White (AQUAPHOR) 99 Gm Oint...g., 99 GM TP QDAY 08/23/17 Talc/Cellulos/Chloroxy/Aldioxa (ZEASORB POWDER) 71 Gm Powder, 71 GM TP BID 08/23/17 Lamotrigine (LAMOTRIGINE) 200 Mg Tab.er.24, 200 MG PO QDAY 08/23/17 Reviewed Nurses Notes: Yes Old Medical Records Reviewed: Yes Hx Smoking: No Smoking Status: Never Smoker Exposure to Second Hand Smoke?: No Hx Substance Use Disorder: No Hx Alcohol Use: No Constitutional Vital Sign - Last 24 Hours 12/28/18 12/28/18 12/28/18 12/28/18 10:29 10:30 11:45 11:52 Temp 97.5 Pulse 105 48 55 Resp 24 B/P (MAP) 106/79 (88) 106/79 Pulse Ox 98 12/28/18 12/28/18 12/28/18 12/28/18 12:15 12:28 12:33 12:38 Pulse 44 44 48 B/P (MAP) 93/50 (64) Pulse Ox 98 90 90 12/28/18 12/28/18 12/28/18 12/28/18 12:43 12:48 12:53 12:58 Pulse 44 46 42 42 Pulse Ox 90 90 88 12/28/18 12/28/18 12/28/18 12/28/18 13:03 13:06 13:08 13:10 Pulse 41 40 B/P (MAP) 73/34 (47) 67/28 (41) 75/40 (52) Pulse Ox 88 91 12/28/18 12/28/18 12/28/18 12/28/18 13:13 13:15 13:18 13:23 Pulse 43 37 44 B/P (MAP) 110/59 (76) Pulse Ox 97 99 98 12/28/18 12/28/18 12/28/18 12/28/18 13:30 13:32 13:33 13:40 Pulse 45 B/P (MAP) 76/44 (55) 81/49 (60) 77/46 (56) Pulse Ox 98 12/28/18 12/28/18 12/28/18 12/28/18 13:43 13:50 13:53 13:58 Pulse 46 39 45 B/P (MAP) 119/80 (93) Pulse Ox 98 99 99 12/28/18 12/28/18 12/28/18 14:00 14:03 14:08 Pulse 51 B/P (MAP) 86/82 (83) Pulse Ox 93 95 Physical Exam General Appearance: The patient is alert, has no immediate need for airway protection and no current signs of toxicity. At baseline Eyes: Pupils equal and round no injection. Respiratory: Chest is non tender, lungs are clear to auscultation. Cardiac: regular rate and rhythm [ ] Gastrointestinal: Abdomen is soft and non tender, no masses, bowel sounds normal. Musculoskeletal: Patient has pain wherever I touch upper and lower extremities back and chest unable to get any type of true exam Neck is supple and non tender. Extremities have full range of motion and are non tender. Skin: No rashes or lesions. Small linear laceration of the right eyebrow bruising and ecchymosis the posterior shoulder which is clearly older than today no additional findings of note DIFFERENTIAL DIAGNOSIS: After history and physical exam differential diagnosis was considered for intracranial bleed secondary to fall laceration fractures contusion Medical Decision Making ED Course/Re-evaluation ED Course ED medical decision-making 58-year-old female developmentally delayed came in after falling forward falling asleep at the table resulting in a small laceration under her left right eyebrow no need for closure at this time patient got a head CT neck CT and some x-rays difficult to get an appreciative examination CTs were negative but we knew to sedate her partially with ketamine she reacted to the ketamine required some IV fluids and monitoring after which she is resuscitated fine no complications be discharge diagnosis laceration Decision to Disposition Date: December 28, 2018 Decision to Disposition Time: 14:13 Depart Departure Latest Vital Signs Vital Signs Date Time Temp Pulse Resp B/P (MAP) Pulse Ox O2 Delivery O2 Flow Rate FiO2 12/28/18 14:08 51 95 12/28/18 14:00 86/82 (83) 12/28/18 10:30 97.5 24 Impression: Primary Impression: Face lacerations Condition: Stable Disposition: HOME OR SELF-CARE Referrals: BILL MCKNIGHT APRN MANAGER STRATEGIC MARKETING-C (PCP) Patient Instructions: Facial Laceration (ED) LUDIVINA CHOWDHURY MD December 28, 2018 11:00
--- NOTE | 2018-12-28 12:03 | RADIOLOGY IMAGING REPORT ---
FACILITY: [facility] PATIENT NAME: Keerthi Melendez : 1960 MR: [id number] V: [id number] EXAM DATE: ORDERING PHYSICIAN: LUDIVINA CHOWDHURY TECHNOLOGIST: Location: [facility] - [place] Patient: Keerthi Melendez : 1960 Visit/Account:[id number] Date of Sevice: 12/28/2018 Exam type: HUMERUS RIGHT History: Shoulder pain/fall Comparison: Right shoulder performed today. Findings: Two views of the right humerus demonstrates no evidence of acute fracture dislocation. There are mod erate degenerative changes at the right glenohumeral joint and at the right AC joint. IMPRESSION: 1. No gross evidence of acute fracture-dislocation involving the right humerus Moderate degenerative changes at the right glenohumeral joint and right AC joint Report Dictated By: Daisy Espinal MD at 12/28/2018 11:57 AM Report E-Signed By: Daisy Espinal MD at 12/28/2018 11:59 AM WSN:[id number]
--- NOTE | 2018-12-28 12:07 | RADIOLOGY IMAGING REPORT ---
[place] [facility] [place] Keerthi Melendez : 1960 MR: [id number] V: [id number] EXAM DATE: ORDERING PHYSICIAN: LUDIVINA CHOWDHURY TECHNOLOGIST: Location: [facility] - [place], [place] Patient: Keerthi Melendez : 1960 Visit/Account:[id number] Date of Sevice: 12/28/2018 Exam type: SHOULDER MIN 2 VIEWS RIGHT History: fall Comparison: Right humerus performed today. Findings: Three views of the right shoulder were submitted. There are moderate degenerative changes at the rig ht glenohumeral joint at the right AC joint. There is an oblique lucency traversing the right ross l head which most likely represents a superimposed shadow however a nondisplaced fracture cannot be e ntirely excluded IMPRESSION: 1. Moderate degenerative changes at the right lateral humeral joint and right AC joint There is an oblique lucency traversing the right humeral head which most likely represents a superimp osed shadow however a nondisplaced fracture cannot be entirely excluded. Further evaluation with CT may be helpful if a fracture remains of strong clinical concern Report Dictated By: Daisy Espinal MD at 12/28/2018 11:59 AM Report E-Signed By: Daisy Espinal MD at 12/28/2018 12:01 PM RAMOSN:[email or web address]
--- NOTE | 2018-12-28 12:24 | RADIOLOGY IMAGING REPORT ---
FACILITY: [facility] - [place] PATIENT NAME: Keerthi Melendez : 1960 MR: [id number] V: [id number] EXAM DATE: ORDERING PHYSICIAN: LUDIVINA CHOWDHURY TECHNOLOGIST: Location: [facility] - [place] Patient: Keerthi Melendez : 1960 Visit/Account:[id number] Date of Sevice: 12/28/2018 EXAMINATION: CT Head without intravenous contrast CT Cervical spine without intravenous contrast HISTORY: Trauma. TECHNIQUE: Head: Axial images were obtained from the skull base to the vertex without intravenous contrast. Sa gittal and coronal reformatted images are also submitted. Cervical spine: Axial images were obtained from the skull base through the upper thoracic spine with out IV contrast administration. Coronal and sagittal reformatted images were obtained from the axial source data. One of the following dose optimization techniques was utilized in the performance of this exam: Autom ated exposure control; adjustment of the mA and/or kV according to the patient's size; or use of an i terative reconstruction technique. Specific details can be referenced in the facility's radiology C T exam operational policy. COMPARISON: None available. FINDINGS: HEAD: Brain volume: Mild generalized volume loss. Ventricles: Negative. Acute ischemic changes: None. Hemorrhage: None. Masses / edema: None. Wooten-white: Negative. White matter: Negative. Vessels: Negative. Extra-axial: Negative. Calvarium / skull base: Negative. Visualized sinuses / orbits: Negative. CERVICAL SPINE: Alignment: Straightening of the normal lordosis. Mild convex leftward curvature. Cranio-cervical junction: Thinning of the lateral masses of C1 with upward migration of the dens exte nding 4 mm above [place] line. Extensive degenerative changes in the atlantooccipital, atlantoaxi al and atlantodental joints, left worse than right. No fractures. Vertebral bodies: Degenerative endplate changes at multiple levels. Otherwise negative. Posterior elements: Multilevel facet hypertrophy. Hardware: None. Disc Spaces: Extensive multilevel degenerative disc disease. Soft tissues: Negative. Visualized upper chest: Negative. IMPRESSION: 1. No acute intracranial abnormality. 2. No acute cervical spine fracture. 3. Extensive degenerative changes at the craniocervical junction with superior migration of the dens extending 4 mm above [place] line consistent with basilar impression. 4. Extensive multilevel degenerative disc disease and facet hypertrophy in the cervical spine and in the included portion of the thoracic spine. Report Dictated By: Adeel Freire MD at 12/28/2018 11:57 AM Report E-Signed By: Adeel Freire MD at 12/28/2018 12:19 PM WSN:[id number]
--- NOTE | 2018-12-28 12:25 | RADIOLOGY IMAGING REPORT ---
FACILITY: [facility] - [place] PATIENT NAME: Keerthi Melendez : 1960 MR: [id number] V: [id number] EXAM DATE: ORDERING PHYSICIAN: LUDIVINA CHOWDHURY TECHNOLOGIST: Location: [facility] [place] Patient: Keerthi Melendez : 1960 Visit/Account:[id number] Date of Sevice: 12/28/2018 EXAMINATION: CT Head without intravenous contrast CT Cervical spine without intravenous contrast HISTORY: Trauma. TECHNIQUE: Head: Axial images were obtained from the skull base to the vertex without intravenous contrast. Sa gittal and coronal reformatted images are also submitted. Cervical spine: Axial images were obtained from the skull base through the upper thoracic spine with out IV contrast administration. Coronal and sagittal reformatted images were obtained from the axial source data. One of the following dose optimization techniques was utilized in the performance of this exam: Autom ated exposure control; adjustment of the mA and/or kV according to the patient's size; or use of an i terative reconstruction technique. Specific details can be referenced in the facility's radiology C T exam operational policy. COMPARISON: None available. FINDINGS: HEAD: Brain volume: Mild generalized volume loss. Ventricles: Negative. Acute ischemic changes: None. Hemorrhage: None. Masses / edema: None. Wooten-white: Negative. White matter: Negative. Vessels: Negative. Extra-axial: Negative. Calvarium / skull base: Negative. Visualized sinuses / orbits: Negative. CERVICAL SPINE: Alignment: Straightening of the normal lordosis. Mild convex leftward curvature. Cranio-cervical junction: Thinning of the lateral masses of C1 with upward migration of the dens exte nding 4 mm above [place] line. Extensive degenerative changes in the atlantooccipital, atlantoaxi al and atlantodental joints, left worse than right. No fractures. Vertebral bodies: Degenerative endplate changes at multiple levels. Otherwise negative. Posterior elements: Multilevel facet hypertrophy. Hardware: None. Disc Spaces: Extensive multilevel degenerative disc disease. Soft tissues: Negative. Visualized upper chest: Negative. IMPRESSION: 1. No acute intracranial abnormality. 2. No acute cervical spine fracture. 3. Extensive degenerative changes at the craniocervical junction with superior migration of the dens extending 4 mm above [place] line consistent with basilar impression. 4. Extensive multilevel degenerative disc disease and facet hypertrophy in the cervical spine and in the included portion of the thoracic spine. Report Dictated By: Adeel Freire MD at 12/28/2018 11:57 AM Report E-Signed By: Adeel Freire MD at 12/28/2018 12:19 PM WSN:[id number]
[2018-12-28] MEDS ORDERED: NS(*) 0.9% 1000 ML BAG 1,000 ML IV ONE (13:15)
[2018-12-28 14:13] VITALS: BP 138/49
== END 2018-12-28 14:24 | disposition home or self-care (01) ==
LOC: ER 10:49
DX: S01.111A Laceration without foreign body of right eyelid and periocular area, initial encounter (principal); W18.30XA Fall on same level, unspecified, initial encounter
CPT/HCPCS: 70450; 72125; 73030; 73060; 96360; 96372; 99284; J7030

== ENCOUNTER 2019-01-27 15:07 | Emergency (ER) | payer MEDICARE, MEDICAID ==
[2017-09-03 08:54] VITALS: Wt 67.6 kg
--- NOTE | 2019-01-27 15:12 | ER Report ---
History and Physical Time Seen By MD: 15:10 HPI/ROS CHIEF COMPLAINT: Leg swelling HISTORY OF PRESENT ILLNESS: This is a 58 year old female who has leg swelling for a few days, left leg much larger and red and seems painful. The patient has Down Syndrome and dementia, unable to provide information. Caregivers indicate she seems to be in more pain. Has severe peripheral arterial disease, on Brilinta to help with this. Discussed the case with her primary care provider regarding the case. She has needed sedation in the past and will need sedation to evaluate with ultrasound. They have been trying to get some labs done in the past as well and we can do this at the same time. REVIEW OF SYSTEMS: Unable to obtain. Allergies: Uncoded Allergies: perfume (Allergy, Unknown, 02/01/14) skin sensitive to perfumed soaps and deodorants SOAP (Adverse Reaction, Unknown, 02/01/14) Home Meds Active Scripts Apixaban (ELIQUIS) 5 Mg Tablet, 5 MG PO DIRECTED, #70 TAB 0 Refills Take 2 tablets twice a day for 7 days, then decrease to 1 tablet twice a day. Prov:YANIRA BUNN MD 01/27/19 Acetaminophen (ACETAMINOPHEN) 500 Mg Tablet, 2 TAB PO TID, #90 TAB 5 Refills Prov:BILL MCKNIGHT APRN 12/16/18 [Transport Wheelchair] No Conflict Check Prov:BILL MCKNIGHT APRN 12/14/18 Lidocaine HCl (Aspercreme) 4 % Cream..g., 1 ROB TOP BID for 30 Days, #76.5 GM 5 Refills Prov:BILL MCKNIGHT APRN 11/25/18 Levothyroxine Sodium (LEVOTHYROXINE SODIUM) 75 Mcg Tablet, 1 TAB PO QDAY, #30 TAB 2 Refills Prov:BILL MCKNIGHT APRN 11/25/18 Ticagrelor (Brilinta) 60 Mg Tablet, 1 TAB PO BID, #60 TAB 5 Refills Prov:BILL MCKNIGHT APRN 08/17/18 Nystatin 100,000 Unit/Gm Top Powder (NYSTATIN 100,000 UNIT/GM TOP POWDER) 15 Gm Powder, 15 GM TP BID, #1 TUBE 0 Refills Apply to left ingunial area twice per day as needed for fungal infection Prov:LIZZETTE ALCOCER MD 06/07/18 Reported Medications Sodium Chloride (RAUL-128) 3.5 Gm Oint...g., 3.5 GM OP QDAY 07/12/18 Carboxymethylcellulose Sodium (REFRESH LIQUIGEL) 15 Ml Drp.lq.gel, 15 ML OP QDAY 07/12/18 Triamcinolone Acetonide 0.1% Oint 15 Gm Tube (TRIAMCINOLONE ACETONIDE 0.1% 15 GM TUBE) 15 Gm Oint...g., 15 GM TP PRN, TUBE 07/11/18 Guaifenesin (ROBAFEN) 100 Mg/5 Ml Liquid, 20 ML PO Q4-6H PRN for CONGESTION 07/11/18 Vit C/Honey Ac/Lut/Copper/Znox (PRESERVISION LUTEIN SOFTGEL) 1 Each Capsule, 1 EACH PO BID, CAPSULE 07/11/18 Skin Cleanser (PERIFRESH) 3,840 Ml Cleanser, 3840 ML TP BID 07/11/18 Chlorhexidine Gluconate (HIBICLENS) 118 Ml Liquid, 118 ML TP DAILY 07/11/18 Menthol (BIOFREEZE) 118 Ml Gel..ml., PRN 07/11/18 Bacitracin Zinc (BACITRACIN ZINC) 120 Gm Oint...g., 120 GM TP PRN 07/11/18 Loperamide Hcl (ANTI-DIARRHEAL) 2 Mg Capsule, 2 TAB PO PRN, CAPSULE 07/11/18 Parab/Cet Alc/Stryl Alc/Pg/Sls (CETAPHIL DAILY FACIAL CLEANSER) 473 Ml Cleanser, 1 ROB TP DAILY 08/24/17 Sodium Fluoride (PREVIDENT 5000 PLUS) 51 Gm Cream..g., 1 ROB DT BID 08/24/17 Gly/Dimeth/Petrolat,Wht/Water (CETAPHIL MOISTURIZING CREAM) 85 Gm Cream..g., 1 ROB TP BID 08/24/17 Multivitamin (MULTIVITAMINS) 1 Each Capsule, 1 EACH PO QDAY, CAPSULE 08/23/17 Eyelid Cleanser Combination #5 (OCUSOFT LID SCRUB) 1 Each Med..pad, 1 EACH TP QDAY 08/23/17 Fluticasone/Vilanterol 100/25 Mcg/Inh (BREO ELLIPTA 100/25 MCG) 1 Each Aer.pow.ba, 1 INH INH QDAY, INH 08/23/17 Polyvinyl Alcohol/Povidone/Pf (REFRESH CLASSIC EYE DROPS) 1 Each Droperette, 1 DROP OP 6 times a day 08/23/17 Petrolatum,White (AQUAPHOR) 99 Gm Oint...g., 99 GM TP QDAY 08/23/17 Talc/Cellulos/Chloroxy/Aldioxa (ZEASORB POWDER) 71 Gm Powder, 71 GM TP BID 08/23/17 Lamotrigine (LAMOTRIGINE) 200 Mg Tab.er.24, 200 MG PO QDAY 08/23/17 Reviewed Nurses Notes: Yes Hx Smoking: No Smoking Status: Never Smoker Exposure to Second Hand Smoke?: No Hx Substance Use Disorder: No Hx Alcohol Use: No Constitutional Vital Sign - Last 24 Hours 01/27/19 01/27/19 01/27/19 01/27/19 15:16 15:19 15:30 15:37 Pulse 82 71 Resp 18 B/P (MAP) 105/52 (69) 105/52 108/63 (78) Pulse Ox 96 95 O2 Delivery Room Air 01/27/19 01/27/19 01/27/19 01/27/19 16:00 16:07 16:10 16:11 Pulse 77 B/P (MAP) 115/45 (68) 113/54 (73) Pulse Ox 98 95 O2 Delivery Nasal Cannula O2 Flow Rate 2.0 01/27/19 01/27/19 01/27/19 01/27/19 16:15 16:20 16:25 16:30 B/P (MAP) 124/84 (97) 92/40 (57) 85/36 (52) 86/36 (53) 01/27/19 01/27/19 01/27/19 01/27/19 16:35 16:37 16:40 16:45 Pulse 51 B/P (MAP) 88/35 (52) 89/46 (60) 93/46 (62) Pulse Ox 99 01/27/19 01/27/19 01/27/19 01/27/19 16:50 16:55 16:56 17:00 B/P (MAP) 95/46 (62) 90/42 (58) 91/46 (61) Pulse Ox 99 O2 Delivery Nasal Cannula O2 Flow Rate 2.0 01/27/19 01/27/19 01/27/19 01/27/19 17:05 17:06 17:30 17:35 Pulse 55 B/P (MAP) 91/46 (61) 93/49 (64) 107/69 (82) 113/68 (83) Pulse Ox 97 01/27/19 01/27/19 01/27/19 01/27/19 17:40 17:45 17:50 17:55 B/P (MAP) 114/67 (83) 92/63 (73) 112/68 (83) 110/68 (82) 01/27/19 01/27/19 01/27/19 18:00 18:05 18:10 Pulse 75 B/P (MAP) 122/71 (88) 115/85 (95) 107/85 (92) Pulse Ox 92 Physical Exam General: Alert. Does not want me touching her legs or examining. Skin: Swelling of the left leg compared to right. Seems tender when trying to touch. Respiratory: Lungs clear. Cardiovascular: Heart regular rate and rhythm. Peripheral vascular disease, poor cap refill both feet. Medical Decision Making Data Points Result Diagram: 01/27/19 1553 01/27/19 1553 Laboratory Hematology Test 01/27/19 15:53 01/27/19 16:19 Red Blood Count 3.87 M/uL (4.17-5.56) Mean Corpuscular Volume 105.0 fL (80.0-96.0) Mean Corpuscular Hemoglobin 36.1 pg (26.0-33.0) Mean Corpuscular Hemoglobin Concent 34.4 g/dL (32.0-36.0) Red Cell Distribution Width 15.5 % (11.5-14.5) Mean Platelet Volume 8.2 fL (7.2-11.1) Neutrophils (%) (Auto) 58.4 % (39.4-72.5) Lymphocytes (%) (Auto) 28.8 % (17.6-49.6) Monocytes (%) (Auto) 9.9 % (4.1-12.4) Eosinophils (%) (Auto) 2.1 % (0.4-6.7) Basophils (%) (Auto) 0.8 % (0.3-1.4) Nucleated RBC Relative Count (auto) 0.1 /100WBC Neutrophils # (Auto) 2.4 K/uL (2.0-7.4) Lymphocytes # (Auto) 1.2 K/uL (1.3-3.6) Monocytes # (Auto) 0.4 K/uL (0.3-1.0) Eosinophils # (Auto) 0.1 K/uL (0.0-0.5) Basophils # (Auto) 0.0 K/uL (0.0-0.1) Nucleated RBC Absolute Count (auto) 0.00 K/uL Erythrocyte Sedimentation Rate 14 mm/HOUR (0-30) Sodium Level 144 mmol/L (137-145) Potassium Level 4.2 mmol/L (3.5-5.0) Chloride Level 104 mmol/L (98-107) Carbon Dioxide Level 30 mmol/L (22-31) Blood Urea Nitrogen 17 mg/dl (7-18) Creatinine 1.00 mg/dl (0.52-1.04) Glomerular Filtration Rate Calc 57.4 Random Glucose 84 mg/dl (75-110) Calcium Level 9.7 mg/dl (8.4-10.2) Magnesium Level 2.0 mg/dl (1.7-2.2) Total Bilirubin 0.5 mg/dl (0.2-1.3) Aspartate Amino Transf (AST/SGOT) 51 U/L (0-35) Alanine Aminotransferase (ALT/SGPT) 48 U/L (0-56) Alkaline Phosphatase 136 U/L (0-126) C-Reactive Protein 0.6 mg/dl (<1.0) Total Protein 8.2 g/dl (6.3-8.2) Albumin 4.1 g/dl (3.5-5.0) Chemistry Test 01/27/19 15:53 01/27/19 16:19 White Blood Count 4.1 k/uL (4.5-11.0) Red Blood Count 3.87 M/uL (4.17-5.56) Hemoglobin 14.0 g/dL (12.0-16.0) Hematocrit 40.6 % (34.0-47.0) Mean Corpuscular Volume 105.0 fL (80.0-96.0) Mean Corpuscular Hemoglobin 36.1 pg (26.0-33.0) Mean Corpuscular Hemoglobin Concent 34.4 g/dL (32.0-36.0) Red Cell Distribution Width 15.5 % (11.5-14.5) Platelet Count 236 K/uL (150-450) Mean Platelet Volume 8.2 fL (7.2-11.1) Neutrophils (%) (Auto) 58.4 % (39.4-72.5) Lymphocytes (%) (Auto) 28.8 % (17.6-49.6) Monocytes (%) (Auto) 9.9 % (4.1-12.4) Eosinophils (%) (Auto) 2.1 % (0.4-6.7) Basophils (%) (Auto) 0.8 % (0.3-1.4) Nucleated RBC Relative Count (auto) 0.1 /100WBC Neutrophils # (Auto) 2.4 K/uL (2.0-7.4) Lymphocytes # (Auto) 1.2 K/uL (1.3-3.6) Monocytes # (Auto) 0.4 K/uL (0.3-1.0) Eosinophils # (Auto) 0.1 K/uL (0.0-0.5) Basophils # (Auto) 0.0 K/uL (0.0-0.1) Nucleated RBC Absolute Count (auto) 0.00 K/uL Erythrocyte Sedimentation Rate 14 mm/HOUR (0-30) Glomerular Filtration Rate Calc 57.4 Calcium Level 9.7 mg/dl (8.4-10.2) Magnesium Level 2.0 mg/dl (1.7-2.2) Total Bilirubin 0.5 mg/dl (0.2-1.3) Aspartate Amino Transf (AST/SGOT) 51 U/L (0-35) Alanine Aminotransferase (ALT/SGPT) 48 U/L (0-56) Alkaline Phosphatase 136 U/L (0-126) C-Reactive Protein 0.6 mg/dl (<1.0) Total Protein 8.2 g/dl (6.3-8.2) Albumin 4.1 g/dl (3.5-5.0) Microbiology Microbiology Date/Time Source Procedure Growth Status 01/27/19 16:19 Blood Blood Culture - Preliminary NO GROWTH AFTER 1 DAY, REINCUBATED Resulted 01/27/19 15:53 Blood Blood Culture - Preliminary NO GROWTH AFTER 1 DAY, REINCUBATED Resulted EKG/Imaging Imaging Venous Doppler ultrasound left lower extremity Indication: Left leg swelling.. Comparison: 07/12/2018. Findings: Duplex Doppler and color flow imaging was performed. The left, femoral vein through the proximal femoral vein does show nearly occluding thrombus with poor compressibility and poor blood flow. The remaining femoral vein is patent with good blood flow and compressibility. The proximal popliteal vein does show short segment of noncompressibility suggest a thrombus which is partially occluding. The remaining popliteal vein is clear. The posterior tibial and peroneal veins are patent in the calf. The proximal greater saphenous vein is also normal. Subcutaneous tissues are unremarkable. IMPRESSION: 1. Positive deep venous thrombosis in the left leg with a nearly occluding thrombus seen in the left common femoral vein extending into the proximal femoral vein. There is also a short segment of nonoccluding thrombus seen in the proximal popliteal vein. I called report to YANIRA BUNN at 01/27/2019 4:54 PM. Report Dictated By: Milan Cespedes at 01/27/2019 4:49 PM ED Course/Re-evaluation Clinical Indication for ER IV: Hydration, IV Access ED Course DVT study positive. Stopped brilinta and starting Eliquis. 5mg dose given tonight. Will start 10mg bid for 7 days, then will decrease to 5mg bid. Procedure: Procedural sedation. A pre-sedation evaluation was completed on the patient. Patient is an appropriate candidate for procedural sedation. The risks of the sedation were discussed with the patient's caregivers, consent obtained. A time out was completed. The patient was reevaluated immediately prior to initiation of sedation. The patient was sedated with propofol. The patient was monitored with continuous pulse oximetry and quality assurance monitor chassis. Had no hypoxemia, but did have apnea, and assisted with ventilations during this time. I remained at the bedside for the sedation. The total time I spent in the procedural sedation was 45 minutes. Post sedation evaluation: Patient was alert and cooperative, hemodynamically stable with appropriate respiratory status, temperature and pain control without ongoing nausea and vomiting. Decision to Disposition Date: Jan 27, 2019 Decision to Disposition Time: 18:02 Depart Departure Latest Vital Signs Vital Signs Date Time Temp Pulse Resp B/P (MAP) Pulse Ox O2 Delivery O2 Flow Rate FiO2 01/27/19 18:10 107/85 (92) 01/27/19 18:00 75 92 01/27/19 16:56 Nasal Cannula 2.0 01/27/19 15:19 18 Impression: Primary Impression: DVT (deep venous thrombosis) Condition: Improved Disposition: HOME OR SELF-CARE Referrals: BILL MCKNIGHT APRN SENIOR ENGINEERING TECHNICIAN-C (PCP) New Scripts Apixaban (ELIQUIS) 5 Mg Tablet 5 MG PO DIRECTED, #70 TAB 0 Refills Take 2 tablets twice a day for 7 days, then decrease to 1 tablet twice a day. Prov: YANIRA BUNN MD 01/27/19 Patient Instructions: Deep Venous Thrombosis (ED) Additional Instructions: Eliquis 5mg tablets, take 2 tablets twice a day for 7 days, then decreased to one tablet twice a day. Stop the Brilinta while on the Eliquis. No other medication changes. Watch for any severe bleeding, such as blood in the urine, blood in the stool, or vomiting blood. Call you doctor for any of these, or any changes in mental status. Schedule a follow-up visit with your provider in the next 7-10 days for re- evaluation. Problem Qualifiers Primary Impression: DVT (deep venous thrombosis) DVT location: lower extremity Affected thrombotic vein of extremity: femoral Chronicity: acute Laterality: left Qualified Codes: I82.412 - Acute embolism and thrombosis of left femoral vein YANIRA BUNN MD Jan 27, 2019 15:12
[2019-01-27] MEDS ORDERED: LORazepam 2 MG/ML VIAL IVP ONE (15:30)
[2019-01-27] MEDS ORDERED: fentaNYL CITR 100 MCG/2 ML AMP ONE (15:30)
[2019-01-27] MEDS ORDERED: PROPOFOL EMUL 10MG/ML 20 ML VL IVP ONE ×2 (15:30→16:10)
[2019-01-27 16:13] LABS: PLATELET COUNT, AUTOMATED 236 K/uL (150-450)
--- NOTE | 2019-01-27 17:01 | RADIOLOGY IMAGING REPORT ---
FACILITY: [facility] PATIENT NAME: Keerthi Melendez : 1960 MR: [id number] V: [id number] EXAM DATE: ORDERING PHYSICIAN: YANIRA BUNN TECHNOLOGIST: Location: [facility] Patient: Keerthi Melendez : 1960 Visit/Account:[id number] Date of Sevice: 01/27/2019 Venous Doppler ultrasound left lower extremity Indication: Left leg swelling.. Comparison: 07/12/2018. Findings: Duplex Doppler and color flow imaging was performed. The left, femoral vein through the pr oximal femoral vein does show nearly occluding thrombus with poor compressibility and poor blood flow . The remaining femoral vein is patent with good blood flow and compressibility. The proximal poplite al vein does show short segment of noncompressibility suggest a thrombus which is partially occluding . The remaining popliteal vein is clear. The posterior tibial and peroneal veins are patent in the ca lf. The proximal greater saphenous vein is also normal. Subcutaneous tissues are unremarkable. IMPRESSION: 1. Positive deep venous thrombosis in the left leg with a nearly occluding thrombus seen in the left common femoral vein extending into the proximal femoral vein. There is also a short segment of nonocc luding thrombus seen in the proximal popliteal vein. I called report to YANIRA BUNN at 01/27/2019 4:54 PM. Report Dictated By: Milan Cespedes at 01/27/2019 4:49 PM Report E-Signed By: Milan Cespedes at 01/27/2019 4:55 PM WSN:[id number]
[2019-01-27] MEDS ORDERED: APIXABAN 2.5 MG TABLET PO ONE (18:05)
[2019-01-27] MEDS ORDERED: APIX5TAB PO (18:07)
[2019-01-27 18:10] VITALS: BP 107/85
== END 2019-01-27 18:19 | disposition home or self-care (01) ==
LOC: ER 15:42
DX: I82.412 Acute embolism and thrombosis of left femoral vein (principal); I73.9 Peripheral vascular disease, unspecified
CPT/HCPCS: 82607; 82746; 83735; 84207; 84425; 84443; 85025; 85651; 86140; 87040; 93971; 96374; 99285; J2704; J3010; 82040; 82247; 82310; 82374; 82435; 82565; 82947; 84075; 84132; 84155; 84295; 84450; 84460; 84520